=== PATIENT | female | born 1960 | race Caucasian/White ===

== ENCOUNTER 2022-01-06 15:11 | Emergency (ER) | payer MEDICAID, SELFPAY ==
--- NOTE | ~2022-01-06 | XR_ITS ---
EXAMINATION: XR chest 2V Exam Date/Time: 01/06/2022 15:30 CDT HISTORY: SOB/CONGESTION X 5 DAYS. COPD. Comparison: None available. RESULT: Lines, tubes, and devices: Bilateral axillary clips. Laminectomy hardware. Lungs and pleura: Clear. Cardiomediastinal silhouette: Unremarkable cardiomediastinal silhouette. Other: No acute osseous or upper abdominal finding. IMPRESSION: No acute cardiopulmonary process. Reviewed, dictated and finalized at location K.
[2022-01-06 15:16] VITALS: PULSE 78; RESP 22; O2SAT 95
[2022-01-06 15:21] VITALS: BP 138/85; PULSE 73; RESP 22; TEMP 36.7; O2SAT 98
[2022-01-06 15:30] VITALS: RESP 24
--- NOTE | 2022-01-06 16:07 | ED.SOB ---
HPI - SOB/Dyspnea General Chief Complaint: Shortness of Breath/Dyspnea Stated Complaint: Shortness of Breath Time Seen by Provider: 01/06/22 15:35 Source: patient, RN notes reviewed and old records reviewed Mode of arrival: ambulatory Limitations: no limitations History of Present Illness HPI Narrative: 61-year-old female who presents to express care with complaints of increased shortness of breath since . Patient states cough with some clear mucus and nasal congestion also with clear sinus drainage. Patient states that cough has increased and she has noted wheezing. Patient does have history of COPD and known right lung mass and also has had a double mastectomy. Patient states she does use inhalers at home and has used her albuterol inhaler 2 puffs twice today as her rescue with no improvement in cough. Patient has had COVID immunizations and also flu shot. MD elicited complaint: shortness of breath and cough Pertinent past history: COPD Onset (ago): day(s) (3) Timing: progressively worsening Severity: moderate Exacerbating factors: exertion Related Data Home Medications Medication Instructions Recorded Confirmed alprazolam 0.25 mg PO DAILY 01/06/22 01/06/22 aspirin 81 mg PO DAILY 01/06/22 01/06/22 exemestane 25 mg PO DAILY 01/06/22 01/06/22 gabapentin 300 mg PO BID 01/06/22 01/06/22 hydralazine 25 mg PO TID 01/06/22 01/06/22 hydrochlorothiazide 25 mg PO DAILY 01/06/22 01/06/22 lisinopril 5 mg PO DAILY 01/06/22 01/06/22 metoprolol succinate 50 mg PO DAILY 01/06/22 01/06/22 paroxetine HCl 20 mg PO DAILY 01/06/22 01/06/22 Allergies Allergy/AdvReac Type Severity Reaction Status Date / Time No Known Allergies Allergy Verified 01/06/22 15:27 Review of Systems Review of Systems: CONSTITUTIONAL: Denies fever, chills, or sweats. EYES: Denies visual changes, redness, or discharge. ENT: Positive for rhinorrhea, congestion, no sore throat, or otalgia. CARDIOVASCULAR: Denies chest pain, palpitations, or edema. RESPIRATORY:Positive for increased cough or dyspnea. GASTROINTESTINAL: Denies abdominal pain, nausea, vomiting, or diarrhea. GENITOURINARY: Denies dysuria or hematuria. SKIN: Denies rash or itching. MUSCULOSKELETAL: Denies back pain, joint pain, or myalgia. NEUROLOGIC: Denies headache, numbness, or weakness. PSYCHIATRIC: Positive for anxiety or depression. 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 There is no relevant family history pertinent to the presenting complaint Exam Narrative: GENERAL: Chronic ill-appearing, well-nourished, and in some acute distress. HEAD: Normocephalic, atraumatic. EYES: PERRLA and EOMI. ENT: Nares red with clear rhinorrhea no epistaxis. Mucous membranes moist. TMs normal with good light reflex throat with some mild redness no lesions or exudates or tonsil swelling NECK: Supple.no lymphadenopathy CHEST: Decreased with scattered wheezing on auscultation. tachypnea noted with SAO2 95% on room air, increased cough noted HEART: Regular rate and rhythm. No murmur heard. Normal peripheral pulses. ABDOMEN: Soft, nontender, nondistended, normal active bowel sounds. EXTREMITIES: Normal range of motion. No edema. SKIN: Warm, dry, no rash. NEURO: No foc
== END 2022-01-06 16:40 | disposition home or self-care (01) ==
PROVIDERS: Emergency Provider Registered Nurse
DX: J44.1 Chronic obstructive pulmonary disease with (acute) exacerbation (principal); I10 Essential (primary) hypertension; F41.9 Anxiety disorder, unspecified; F32.A Depression, unspecified; Z85.3 Personal history of malignant neoplasm of breast; Z90.13 Acquired absence of bilateral breasts and nipples; Z87.891 Personal history of nicotine dependence
CPT/HCPCS: 71046; 99213; G0463

== ENCOUNTER 2024-01-05 14:27 | Outpatient (CLI) | payer MEDICARE, MEDICAID, SELFPAY ==
[2024-01-05 14:51] LABS: Basophils Percent Auto 0.4 % (0.2-1.2); Eosinophils Absolute Auto 0.1 K/mm3 (0-0.3); Eosinophils Percent Auto 1.3 % (0-4.4); Hematocrit 44.4 % (37.0-47.0); Hemoglobin 14.1 g/dL (12.0-15.0); Immature Granulocyte Absolute 0.02 K/mm3 (0.00-0.031); Immature Granulocyte Percent A 0.2 % (0-0.5); Lymphocytes Absolute Auto 0.96 K/mm3 (0.9-3.2); Lymphocytes Percent Auto 10.2 % (18.3-44.2); Mean Corpuscular HGB Conc 31.8 g/dl (32-36); Mean Corpuscular Hemoglobin 33.1 pg (26-34); Mean Corpuscular Volume 104.2 fl (80-100); Mean Platelet Volume 8.9 fl (7.4-10.4); Monocytes Absolute Auto 0.4 K/mm3 (0.1-0.6); Monocytes Percent Auto 4.6 % (2.6-8.5); Neutrophils Absolute Auto 7.8 K/mm3 (1.3-6.7); Neutrophils Percent Auto 83.3 % (45.5-73.1); Platelet Count Result 362 k/mm3 (150-375); Red Blood Count 4.26 M/mm3 (4.2-5.4); Red Cell Distribution Width 14.4 % (11.5-14.5); White Blood Count 9.4 K/mm3 (4.5-10.0)
[2024-01-05 16:43] LABS: Alanine Aminotransferase 35 U/L (6-35); Albumin Level 4.9 g/dL (3.5-5.1); Alkaline Phosphatase 85 U/L (38-126); Anion Gap 11 mmol/L (4-12); Aspartate Amino Transferase 32 U/L (14-36); Bilirubin,Total 0.4 mg/dL (0.2-1.3); Blood Urea Nitrogen 19 mg/dL (7-17); Calcium 9.7 mg/dL (8.4-10.2); Carbon Dioxide 27 mmol/L (22-30); Chloride 101 mmol/L (98-107); Estimated Glomerular Filt Rate 41; Glucose 114 mg/dL (65-110); Potassium 4.5 mmol/L (3.4-5.0); Sodium 139 mmol/L (137-145)
[2024-01-05 16:50] LABS: Vitamin D 25 Hydroxy 24.3 ng/mL
[2024-01-06 13:53] LABS: CA 15-3 9 U/mL (<32)
== END 2024-01-05 14:28 | disposition home or self-care (01) ==
LOC: ANHLAB 14:30
PROVIDERS: Visit Provider Internal Medicine Hematology & Oncology
DX: C50.911 Malignant neoplasm of unspecified site of right female breast (principal); C50.912 Malignant neoplasm of unspecified site of left female breast; Z17.0 Estrogen receptor positive status [ER+]; E55.9 Vitamin D deficiency, unspecified
CPT/HCPCS: 36415; 80053; 82306; 85025; 86300

== ENCOUNTER 2024-12-10 14:41 | Emergency (ER) | payer MEDICARE, SELFPAY ==
--- NOTE | ~2024-12-10 | XR_ITS ---
EXAMINATION: XR chest 2V 12/10/2024 15:05 INDICATION: Cough, shortness of breath and wheezing PROCEDURE: 2 view chest COMPARISON: 01/06/2022 FINDINGS: The lungs are clear. The lungs are hyperinflated which is consistent with, but not diagnost ic of chronic obstructive pulmonary disease. The cardiomediastinal silhouette is within normal limits . There are no pleural effusions. There is no pneumothorax suspected. There are healed left rib fr actures. There is an age-indeterminate left seventh rib fracture anteriorly. IMPRESSION: 1: NO ACUTE CARDIOPULMONARY DISEASE. 2: Age-indeterminate left seventh rib fracture anteriorly. Reviewed, dictated and finalized at location A.
--- OUTSIDE RECORDS SUMMARY | 2024-12-10 14:45 | XMS_ITS ---
Care Plan - [facility] Created on: December 10, 2024 SIA VILLASEÑOR : 1960 Sex: Female Author Organization [facility] Address [address] [place] [address] Phone Care Team Providers Care Burn Nurse Name Role Phone DARYAN KURTZ MD Primary Care Provider [phone]
--- OUTSIDE RECORDS SUMMARY | 2024-12-10 14:45 | XMS_ITS | Clinical Summary ---
Author Organization [facility] Address [address] [place] [address] Phone Care Team Providers Care Engineering Supplies Sales Name Role Phone ADRYAN KURTZ MD Primary Care Provider [phone] Reason for Visit and Chief Complaint The Chief Complaint is: Patient presents for check up. Patient states that she has been having black out spells . She thinks this is due to her blood pressure. 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 NATALIYA GUO [employer]F-C Active Last Documented On 3 2:08PM ; [facility] Skin Subcutaneous Tissue Disorders in Diseases Classified Elsewhere 05/12/2023 NATALIYA Cristina [employer]IEF-C Active Last Documented On 3 2:08PM ; [facility] Essential Hypertension Malignant 03/25/2021 NAWAF PALAFOX MD Active Last Documented On 1 12:23PM ; [facility] Chronic Obstructive Pulmonar y Disease with Exacerbation 02/04/2020 LINETTE PALAFOX MD Active Last Documented On 1 5:14PM ; [facility] Past Visits Onset Date Resolved Date Provider Condition Status Myalgia and Myositis 02/21/2022 SHAUNA GUO [employer] CHIEF-C Active Last Documented On 2 11:38AM ; [facility] Anxiety Disorder Nos 03/25/2021 LINETTE WILLIS MD Active Last Documented On 1 12:23PM ; [facility] Adjustment Disorder with Anx iety and Depressed Mood 10/25/2020 LINETTE PALAFOX MD Active Last Documented On 1 5:14PM ; [facility] Anxiety disorder, unspecified 02/04/2020 BINH VIDAL-CHRISTEL [employer] CHIEF-C Active Last Documented On 0 8:56AM ; [facility] Breast Complaints 02/04/2020 NATALIYA LOZOYA [employer] CHIEF-C Active Last Documented On 2 5:47PM ; [facility] Plan of Treatment Follow up in 6 months - Last Documented On 05/12/2023 2:09PM ; [facility] Referrals To Diagnosis Wound Care [facility] - [address], [place] [id number] - Postmastectomy lymphedema syndrome Note: lymphedema evaluate an d treat bilat arms Last Documented On 3 12:26PM ; [facility] Assessments Includes: Assessments from this encounter Findings - [I10 - Essential (primary) hypertension] Malignant essential hypertension - Last Documented On 05/12/2023 2:09PM ; [facility] - [I97.2 - Postmastectomy lymphedema syndrome] Postmastectomy lymphedema syndrome - Last Documented On 05/12/2023 2:09PM ; [facility] - [J44.1 - Chronic obstructive pulmonary disease with (acute) exacerbation] Chronic obstructive pulmonary disease with exacerbation - Last Documented On 05/12/2023 2:09PM ; [facility] - [L99 - Other disorders of skin and subcutaneous tissue in diseases classified elsewhere] Disorders of skin and subcutaneous tissue in diseases classified elsewhere - Last Documented On 05/12/2023 2:09PM ; [facility] Medical Equipment - Implanted Devices Includes: Current Devices No Medical Equipment Recorded Medications Includes: Medications discussed during this encounter and other current Medications Discontinued / Stopped on this date NATALIYA GUO [employer] P[employer] CHIEF-C on 05/01/2023 Metoprolol Succinate ER 50 M G Oral Tablet Extended Release 24 Hour Provider: NATALIYA PALACIO [employer] CHIEF-C Diagnosis: Last Documented On 3 1:35PM By Nataliya MEZA ; [facility] hydrALAZINE HCl 25 MG Oral Tablet Provider: NATALIYA MEZA Diagnosis: Essential (prima ry) hypertension Last Documented On 3 1:35PM By Nataliya MEZA ; [facility] Incruse Ellipta 62.5 MCG/INH Inhalation Aerosol Powder Breath Activated Provider: NATALIYA MEZA Diagnosis: Chronic obstruct james pulmonary disease w (acute) exacerbation Last Documented On 05/12/2023 1:25PM By Leyla RÍOS ; [facility] New / Renewed during this visit NATALIYA PINO-Phi on 05/12/2023 guaiFENesin ER 600 MG Oral Tablet Extended Release 12 Hour Provider: NATALIYA MEZA 30 day supply: 60 tablet, 11 refills Diagnosis: Chronic obstructive pulmonary disease w (acute) exacerbation One tablet twice a day Pharmacy: [address], [address] - Last Documented On 3 2:08PM By Nataliya MEZA ; [facility] Bactrim DS 800-160 MG Oral Tablet Provider: NATALIYA MEZA 7 day supply: 14 tablet, 0 refills Diagnosis: Oth disorders of skin, subcu in diseases classd elswhr One tablet twice a day Pharmacy: [facility] [address], [address] - Last Documented On 11/03/2023 1:00PM By Diogenes RÍOS ; [facility] Current Medications (continue as prescribed) Albuterol Sulfate HFA 108 (90 Base) MCG/ACT Inhalation Aerosol Solution 01/28/2024 Provider: NATALIYA MEZA Diagnosis: Anxiety disorder , unspecified 2 puff q 4 hours prn Last Documented On 01/28/2024 3:45PM By Diogenes RÍOS ; [facility] traMADol HCl 50 MG Oral Tablet 01/27/2024 Provider: NATALIIA Colunga Diagnosis: Myalgia, unspeci fied site One tablet at bed time Last Documented On 4 1:30PM By Nataliia Bhat PA-C ; [facility] Xanax 0.25 MG Oral Tablet 01/16/2024 Provider: NATALIYA MEZA Diagnosis: Anxiety disorder , unspecified One tablet three times a day Last Documented On 4 12:41PM By Nataliya MEZA ; [facility] Pregabalin 150 MG Oral Capsule 01/16/2024 Provider: NATALIYA MEZA Diagnosis: Myalgia, unspeci fied site once daily Last Documented On 4 12:41PM By Nataliya MEZA ; [facility] Trelegy Ellipta 100-62.5-25 MCG/ACT Inhalation Aerosol Powder Breath Activated 10/13/2023 Provider: NATALIYA MEZA Diagnosis: Chronic obstruct james pulmonary disease w (acute) exacerbation 1 puff daily Last Documented On 4 4:03PM By Nataliya MEZA ; [facility] hydroCHLOROthiazide 25 MG Oral Tablet 05/05/2023 Provider: NATALIYA MEZA Diagnosis: Essential (prima ry) hypertension One tablet daily Last Documented On 3 11:14AM By Nataliya MEZA ; [facility] PARoxetine HCl 20 MG Oral Tablet 05/01/2023 Provider: NATALIYA MEZA Diagnosis: Adjustment disor jose guadalupe with mixed anxiety and depressed mood One tablet daily Last Documented On 3 8:34AM By Nataliya MEZA ; [facility] Lisinopril 5 MG Oral Tablet 05/01/2023 Provider: NATALIYA MEZA Diagnosis: Essential (prima ry) hypertension One tablet daily Last Documented On 3 8:34AM By Nataliya MEZA ; [facility] Aspirin Adult Low Dose 81 MG Oral Tablet Delayed Relea se 08/21/2021 Provider: Diagnosis: Last Documented On 08/21/2021 2:45PM By Anabella Taylor Cecilio ; [facility] Past Medications on file Trelegy Ellipta 100-62.5-25 MCG/INH Inhalation Aerosol Powder Breath Activated 09/21/2020 - 12/20/2020 Provider: LINETTE PALAFOX MD Diagnosis: Chronic obstruct james pulmonary disease w (acute) exacerbation INHALE 1 PUFF BY MOUTH ONCE DAILY AT BEDTIME Last Documented On 09/21/2020 2:34PM By Miladis Small Cecilio ; [facility] Medications Administered Includes: Administered Medications from this encounter No Administered Medications Recorded Vital Signs Includes: Vital Signs from this encounter Vital Name 05/12/2023 01:48P 05/12/2023 01: 23P Blood Pressure Sitting (mmHg) 160/95 Pulse Rate-Sitting (bpm) 80 Respiration Rate (breaths/min) 20 Temp-Oral (F) 97.8 Height (in) 63 Weight (lb) 196.375 Body Mass Index 34.8 Body Surface Area 1.9 Oxygen Saturation (%) 98 Last Documented: On 05/12/2023 1:48PM ; [facility] On 05/12/2023 1:30PM ; [facility] Results Includes: Results discussed during this encounter No Results Recorded For Specified Dates History of Present Illness Includes: History of Present Illness from this encounter SUNSHINE VILLASEÑOR is a 62 year old female. Source of patient information was patient - Allergy list reviewed - Problem list reviewed - Medication list reviewed Here today for complaints of bilat arm pain and having increased in Lymphedema to the arms. She reports she would like to come off some the BP meds. Has a small spot on back infected hair folicle-will treat with Bactrim. Social History Description Last Updated Current smoker 02/21/2022 Last Documented On 1:22PM ; [facility] Tobacco non-user 08/21/2021 Last Documented On 3 1:22PM ; [facility] Good exercise habits 07/23/2020 Last Documented On 3 1:22PM ; [facility] No caffeine use 07/23/2020 Last Documented On 3 1:22PM ; [facility] No family problems 07/23/2020 Last Documented On 3 1:22PM ; [facility] No interpersonal problems 07/23/2020 Last Documented On 3 1:22PM ; [facility] No job change 07/23/2020 Last Documented On 3 1:22PM ; [facility] No physical disability 07/23/2020 Last Documented On 3 1:22PM ; [facility] No recent financial changes 07/23/2020 Last Documented On 3 1:22PM ; [facility] No recent legal problems 07/23/2020 Last Documented On 3 1:22PM ; [facility] No work-related circumstances 07/23/2020 Last Documented On 3 1:22PM ; [facility] Not using alcohol 07/23/2020 Last Documented On 3 1:22PM ; [facility] Not using drugs 07/23/2020 Last Documented On 3 1:22PM ; [facility] Smoker smokes 3 cig/day 06/22/2020 Last Documented On 3 1:22PM ; [facility] Cigarette smoking 02/04/2020 Last Documented On 3 1:22PM ; [facility] Current every day smoker 02/04/2020 Last Documented On 3 1:22PM ; [facility] Current smoker for 35 years 02/04/2020 Last Documented On 3 1:22PM ; [facility] Moderate cigarette smoker 02/04/2020 Last Documented On 3 1:22PM ; [facility] Smoking Status Unknown Medical History Includes: Medical History addressed during this encounter Description Last Updated Surgery 1979--child ~1994-- c/s Last Documented On 3 1:22PM ; [facility] Family History Includes: Family History addressed during this encounter No Family History Recorded Review of Systems Includes: Review of Systems from this encounter No Review of Systems Recorded Mental Status Includes: Mental Status from this encounter No Mental Status Recorded Functional Status Includes: Functional Status from this encounter No Functional Status Recorded Physical Exam Includes: Physical Exam from this encounter Allergies Includes: Active Allergies No Known Allergies Encounters Encounter Provider Location Date Check-In Time Check-Out Time Diagnosis CHECK UP NATALIYA MEZA [facility]- 05/12/20 23 1:20PM 2:09PM Essential Hypertension Malignant,Chroni c Obstructive Pulmonary Disease with Exacerbation,Pos tmastectomy Lymphedema Syndrome,Skin Subcutaneous Tissue Disorders in Diseases Classified Elsewhere Insurance Includes: Active Insurance Policies Plan Name Member ID Group # Subscriber Relationship Effect james Dates 1 - [employer]/ MEDICARE GOLD CHOICE PLAN-A [id number] SIA Ching 2 - MEDICAID OF [place] MEDICARE SECOND [id number] SIA Ching Clinical Notes Includes: Clinical Notes from this encounter * Progress note Date Encounter Last Documented by 05/12/2023 CHECK UP Last documented on 05/12/2023; 2:09 PM, NATALIYA MEZA; [facility] Active Problems & Conditions - F43.23 - Adjustment Disorder with Anxiety and Depressed Mood - F41.9 - Anxiety Disorder Nos - F41.9 - Anxiety disorder, unspecified - N64.59 - Breast Complaints - J44.1 - Chronic Obstructive Pulmonary Disease with Exacerbation - I10 - Essential Hypertension Malignant - M79.10 - Myalgia and Myositis - I97.2 - Postmastectomy Lymphedema Syndrome - L99 - Skin Subcutaneous Tissue Disorders in Diseases Classified Elsewhere Chief Complaint The Chief Complaint is: Patient presents for check up. Patient states that she has been having black out spells . She thinks this is due to her blood pressure. She reports her metoprolol makes her feel funny so she hasn't taken it the past few days. History of Present Illness SIA VILLASEÑOR is a 62 year old female. Source of patient information was patient - Allergy list reviewed - Problem list reviewed - Medication list reviewed Here today for complaints of bilat arm pain and having increased in Lymphedema to the arms. She reports she would like to come off some the BP meds. Has a small spot on back infected hair folicle-will treat with Bactrim. Current Medication - Aspirin Adult Low Dose 81 MG Oral Tablet Delayed Release One tablet daily 0 days, 0 refills - hydroCHLOROthiazide 25 MG Oral Tablet One tablet daily, 90 days, 3 refills - Lisinopril 5 MG Oral Tablet One tablet daily, 90 days, 3 refills - PARoxetine HCl 20 MG Oral Tablet One tablet daily, 90 days, 3 refills - Pregabalin 150 MG Oral Capsule once daily, 30 days, 0 refills - Trelegy Ellipta 100-62.5-25 MCG/ACT Inhalation Aerosol Powder Breath Activated 1 puff daily, 30 days, 6 refills - Xanax 0.25 MG Oral Tablet One tablet three times a day, 30 days, 0 refills Past Medical/Surgical History Reported: Surgery 1979--child 1994-- c/s. Social History Personal: No interpersonal problems, no family problems, and no work-related circumstances. No job change, no recent financial changes, and no recent legal problems. Caffeine use: No caffeine use. Tobacco use: Current every day smoker, for 35 years, cigarette smoking moderate, tobacco non-user, and smoker smokes 3 cig/day. Alcohol: Not using alcohol. Drug Use: Not using drugs. Habits: Good exercise habits. Functional: No physical disability. Allergies - No Known Allergies Physical Findings - Vitals taken 05/12/2023 01:23 pm Pulse Rate-Sitting 80 bpm Respiration Rate 20 per min Temp-Oral 97.8 F Height 63 in Weight 196 lbs 6 oz Body Mass Index 34.8 kg/m2 Body Surface Area 1.9 m2 Oxygen Saturation 98 % - Vitals taken 05/12/2023 01:48 pm BP-Sitting 160/95 mmHg Assessment - [I10 - Essential (primary) hypertension] Malignant essential hypertension - [I97.2 - Postmastectomy lymphedema syndrome] Postmastectomy lymphedema syndrome - [J44.1 - Chronic obstructive pulmonary disease with (acute) exacerbation] Chronic obstructive pulmonary disease with exacerbation - [L99 - Other disorders of skin and subcutaneous tissue in diseases classified elsewhere] Disorders of skin and subcutaneous tissue in diseases classified elsewhere Plan StartCited - Chronic obstructive pulmonary disease w (acute) exacerbation guaiFENesin ER 600 MG tablet One tablet twice a day, 30 days, 11 refills EndCited StartCited - Oth disorders of skin, subcu in diseases classd elswhr Bactrim DS 800-160 MG tablet One tablet twice a day, 7 days, 0 refills EndCited StartCited - Postmastectomy lymphedema syndrome Therapy/Physical Therapy: Other Instructions: Evaluate and Treat lymphedema treatment bilat arms Referral: Wound Care Instructions: lymphedema evaluate and treat bilat arms EndCited Follow up in 6 months Health Reminders - Assess Blood Pressure satisfied 05/12/2023. - Assess Need for CT Lung Screen satisfied 05/12/2023. - Assess Tobacco Use satisfied 05/12/2023.
--- OUTSIDE RECORDS SUMMARY | 2024-12-10 14:45 | XMS_ITS | Encounter Summary ---
Author Organization [facility] Healthcare Address [address] [place] [address] Care Team Providers Care Conical Mixer Name Role Phone Phyllis Garland MD Primary Care Provider + [phone] Raghav Ackerman MD Unavailable [phone] Celia Dale MD Unavailable [phone] Keo Garcia MD Unavailable [phone] Aurelia Hernandez MD PhD Unavaila ble Franki Mckeon MD Unavailable [phone] Roberta Daley MD Unavailable [phone] Padma Pineda MD Primary Care Provider Padma Pineda MD Primary Care Provider Armen Dupree MD Unavailable Roz Nicholas Unavailable Unavailable Nataliia Bhat Primary Care Provider Encounter Details Date Type Department Care Team (Late st Contact Info) Description 02/14/2021 Orders Only [facility] Radiation Oncology [address] [place] [phone] Celia Dale MD [address] [place] [address], [place] [address] Social History Tobacco Use Types Packs/Day Years Used Date Smoking Tobacco: Every Day Cigarettes 0.3 42 Smokeless Tobacco: Never Alcohol Use Standard Drinks/Week Comments Not Currently 0 (1 standard drink = 0.6 oz pur e alcohol) AUDIT-C Answer Date Recorded Q1: How often do you have a drink containing alc ohol? Never 12/19/2020 Average Number of Drinks Not on file 021 Frequency of Binge Drinking Not on file 11/2020 PHQ-2 Answer Date Recorded PHQ-2 Total Score (If total score is 3 or more points, staff should administer the PHQ-9) 0 12/19/2020 Comments No Sex and Gender Information Value Date Recorded Sex Assigned at Not on file Legal Sex Female 9:00 AM PRICING COORDINATOR Gender Identity Not on file Sexual Orientation Not on file documented as of this encounter Ordered Prescriptions Prescription Sig Dispense Quantity Refills Last Filled Start Date End Date guaiFENesin-codein e (GUAITUSS AC) liquid 100-10 mg/5 mLIndications:Coug h,5-10 ml prn cough up to tid. Take 5 mL by mouth 3 (three) times a day as needed for cough 120 mL 02/14/2021 06/08/2021 documented in this encounter Plan of Treatment Not on file documented as of this encounter Visit Diagnoses Not on filedocumented in this encounter Discontinued Medications Medication Sig Discontinue Reason Start Date End Da te guaiFENesin-codeine (GUAITUSS AC) liquid 100-10 mg/5 mLIndications:Cough,5-10 ml prn cough up to tid. Take 5 mL by mouth 3 (three) times a day as needed for cough Reorder 01/25/2021 02/14/2021 documented as of this encounter Care Teams Conical Mixer Relationship Specialty Start Date End Date Phyllis Garland MD [address] [place] [id number] PCP - General Family Medicine 03/03/20 10/15/21 Padma Pineda MD [address] [place] [address] PCP - General 10/17/21 05/08/24 Padma Pineda MD [address] [place] [address] PCP - General 10/16/21 10/16/21 Nataliia Bhat PA [address] [place] [address] PCP - General Physician Armature Connector 05/09/24 Raghav Ackerman MD [address] [place] [address] Medical Oncologist/Certified Nursing Assistant Instructor Medical Oncology 03/23/20 10/22/21 Celia Dale MD [address] [facility] [place] [address] Radiation Oncologist Radiation Oncology 09/05/20 Keo Garcia MD [address] [facility] [place] [address] Surgeon Trauma Surgery 10/24/20 Aurelia Hernandez MD PhD [address] [facility] [place] [address] Surgeon Surgical Oncology 12/26/20 Franki Mckeon MD [address] [facility] [place] [address] Resident Neurosurgery 05/23/21 Roberta Daley MD [address] [facility] [place], [place] [id number] Consulting Physician Gastroenterology 07/04/21 Armen Dupree MD [address] [facility], [facility] [place] [address] [place], [place] [id number] Consulting Physician Medical Oncology 10/23/21 Roz Nicholas COTA Occupational Therapist Occupational Therapy 04/10/23 documented as of this encounter
--- OUTSIDE RECORDS SUMMARY | 2024-12-10 14:45 | XMS_ITS | Clinical Summary ---
Author Organization [facility] Address [address] [place] [address] Phone Care Team Providers Care Career Professional Name Role Phone Nataliia Bhat Primary Care Provider [phone] Reynaldo Yu MD Unavailable Allergies No known active allergies Medications omeprazole (PRILOSEC) 40 MG CAPSULE DELAYED RELEASEIndicatio ns:Acute gastritis without hemorrhage, unspecified gastritis type Take 1 Cap by mouth daily. 30 Cap 3 9 Active Additional Information Patient not taking.Reported on 12/07/2024 traMADol (ULTRAM) 50 MG TabletIndication s:Sciatica of left side Take 1 Tab by mouth every 8 hours as needed for Moderate or more severe pain. 30 Tab 9 Active Additional Information Patient not taking.Reported on 12/07/2024 ALPRAZolam (XANAX) 0.25 MG Tablet Take 0.25 mg by mouth nightly. Active aspirin EC 81 MG Tablet Delayed Response Take 81 mg by mouth daily. Active exemestane (AROMASIN) 25 MG Tablet Take 25 mg by mouth daily Active hydroCHLOROthiaz adonay 25 MG Tablet Take 25 mg by mouth daily. Active lisinopril (PRINIVIL, ZESTRIL) 5 MG Tablet Take 5 mg by mouth daily. Active PARoxetine (PAXIL) 20 MG Tablet Take 20 mg by mouth daily. Active pregabalin (LYRICA) 150 MG Capsule Take 150 mg by mouth 2 times daily. Active albuterol 108 (90 Base) MCG/ACT Aerosol Solution take 2 Puffs by inhalation. 8 Active Trelegy Ellipta 100-62.5-25 MCG/ACT AEROSOL POWDER, BREATH ACTIVATED take 1 Puff by inhalation daily. 4 Active carbidopa-levodo pa (SINEMET) 25-100 MG Tablet Take 1 Tablet by mouth 3 times daily. 1/2 hour before eating 90 Tablet 1 5 Active Encounters Date Type Department Care Team Description 12/07/2024 2:45 PM CDT Office Visit [facility] - Neurology [facility] [address] [place] [address] Reynaldo Yu MD Parkinson's disease without dyskinesia or fluctuating manifestations (HCC) (Primary Dx); Chronic midline low back pain with bilateral sciatica; Primary insomnia Discharge Disposition: Discharged to home or Selfcare 12/07/2024 Travel from Last 3 Months Family History Medical History Relation Name Comments Chronic Obstructive Pulmonary Disease Father Cancer Mother Diabetes Mother Relation Name Status Comments Father Mother Alive Social History Tobacco Use Types Packs/Day Years Used Date Smoking Tobacco: Every Day Smokeless Tobacco: Never Tobacco Cessation:Ready to Q uit: No; Counseling Given: Yes Alcohol Use Standard Drinks/Week Comments No 0 (1 standard drink = 0.6 oz pur e alcohol) PHQ-2 Answer Date Recorded PHQ-2 Score 1 05/01/2019 Sexually Active Control Partners Comments Never Comments No Sex and Gender Information Value Date Recorded Sex Assigned at Not on file Legal Sex Female 11:47 PM CDT Gender Identity Not on file Sexual Orientation Not on file Last Filed Vital Signs Vital Sign Reading Time Taken Comments Blood Pressure 122/68 12/07/2024 2:35 PM CDT Pulse 98 12/07/2024 2:35 PM CDT Temperature 36.8 C (98.2 F) 12/07/2024 2:35 PM CDT Respiratory Rate 16 12/07/2024 2:35 PM CDT Oxygen Saturation 99% 12/07/2024 2:35 PM CDT Inhaled Oxygen Concentration - - Weight 98.5 kg (217 lb 1.6 oz) 12/07/2024 2:35 P M CDT Height 160 cm (5' 3 ) 12/07/2024 2:35 PM CDT Body Mass Index 38.46 12/07/2024 2:35 PM CDT Plan of Treatment Upcoming Encounters Date Type Department Care Team (Late st Contact Info) Description 03/10/2025 2:45 PM CDT Office Visit [facility] - Neurology [facility] [address] [place] [address] Reynaldo Yu MD [address] [place] [address] Health Maintenance Due Date Last Done Comments Hepatitis C Virus (HCV) Screening 1960 TdaP Immunization 1960 Zoster Immunization (1 of 2) 1977 Colonoscopy 11/11/2003 Colorectal Cancer Screening 11/11/2003 Cologuard 2008 Immunochemical Fecal Occult Blood 2008 Respiratory Syncytial Virus (RSV) Immunization (Adult) (1 - Risk 60-74 years 1-dose series) 2018 SARS-COV-2 Immunization (4 - season) 2024 10/29/2021, 04/18/2021, 03/25/2021 Influenza Immunization (Seas on Ended) 2025 DEXA Bone Density 06/30/2025 06/30/2023, 04/03/2020 Pneumococcal Immunization (5 0+ years) (3 of 3 - PCV20 or PCV21) 05/23/2026 05/23/2021, 05/22/2020 Mammogram Discontinued 03/23/2020, 02/23/2020, 02/16/2020 Pneumococcal Immunization Combined Discontinued 05/23/2021, 05/22/2020 Hepatitis B Immunization Aged Out No longer eligible based on patient's age to complete this topic Meningococcal Immunization (ACWY) Aged Out No longer eligible based on patient's age to complete this topic Rotavirus Immunization Aged Out No lo nger eligible based on patient's age to complete this topic Procedures Procedure Name Priority Date/Time Associated Diagnosis Comments SCHUYLER DIAG BILATERAL DIGITAL WO CAD Routine 02/23/2020 3:15 PM CDT Status post bilateral breast biopsy from Last 3 Months or Most Recently Relevant to Health Maintenance Results * SCHUYLER DIAG BILATERAL DIGITAL WO CAD (02/23/2020 3:15 PM CDT) Anatomical Region Laterality Modality breast Bilateral Mammography 02/23/2020 3:26 PM CDT Addenda Addendum by Sharan Pearl MD on 02/28/2020 1:50 PM CDT ADDENDUM: This addendum report supersedes the original report dated 02/23/2020 Pathology results returned a diagnoses as follows: 1. 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 2. Right breast mass 7 o'clock position 7 cm from the nipple: Invasive ductal carcinoma. 3. Right breast mass/lesion 9 o'clock position 5 cm from the nipple: Stromal fibrosis negative for malignancy. Breast surgical consultation is recommended. Please see pathology report for full details. THIS IS AN ELECTRONICALLY VERIFIED FINAL REPORT 02/28/2020 1:47 PM - Electronically signed by Sharan Pearl M.D. CHARLINE: CHARLINE Report ID: [id number] Reading Location: [place] [address] EXAM DESCRIPTION: [facility] US GUIDANCE AND CORE BREAST BIOPSY CATHY; [facility] DIAG BILATERAL DIGITAL WO CAD; [facility] US GUIDANCE AND CORE BREAST BIOPSY EACH ADDL RIGHT REASON FOR STUDY: Bilateral breast masses highly suggestive of malignancy. Bilateral ultrasound guided breast biopsies are recommended. COMPARISON: Mammogram and ultrasound 02/16/2020 TECHNIQUE: The procedure was discussed with the patient and the patient agreed to proceed. The patient was scanned and the area of interest in the 2 o'clock position 10 cm from the nipple of the left breast was localized. This correlates with the area of concern on prior imaging studies. This area was targeted for ultrasound-guided core biopsy. After sterile skin prep and 5 mL local lidocaine 1% for skin and deep tissue anesthesia, a 14 gauge coaxial core biopsy needle was used to obtain several cores of tissue from the lesion. Needle placement was documented with sonographic images. Under ultrasound guidance, a ribbon shaped clip was placed in the areas sampled. There were no immediate post-procedure complications. The patient was scanned and the area of interest in the 7 o'clock position 7 cm from the nipple of the right breast was localized. This correlates with the area of concern on prior imaging studies. This area was targeted for ultrasound-guided core biopsy. After sterile skin prep and 7 mL local lidocaine 1% for skin and deep tissue anesthesia, a 14 gauge coaxial core biopsy needle was used to obtain several cores of tissue from the lesion. Needle placement was documented with sonographic images. Under ultrasound guidance, a ribbon shaped clip was placed in the areas sampled. There were no immediate post-procedure complications. The patient was scanned and the area of interest in the 9 o'clock position 5 cm from the nipple of the right breast was localized. This correlates with an area of concern on prior imaging studies. This area was targeted for ultrasound-guided core biopsy. After sterile skin prep and 3 mL local lidocaine 1% for skin and deep tissue anesthesia, a 14 gauge core biopsy needle was used to obtain several cores of tissue from the lesion. Needle placement was documented with sonographic images. Under ultrasound guidance, a coil shaped clip was placed in the areas sampled. There were no immediate post-procedure complications. MAMMOGRAM: Post-procedure two view mammogram was acquired in the digital mammogram suite. Left breast: The ribbon shaped clip is in the expected location of the left breast mass at the 2 o'clock position 10 cm from the nipple. Associated calcifications with the mass are again noted no significant hematoma. Right breast: The ribbon shaped clip is in the expected location at the right breast mass 7 o'clock position 7 cm from the nipple. The coil shaped clip is in the expected position of the biopsy at the 9 o'clock position 5 cm from the nipple. This does not correlate with a previously circled/questioned abnormality on the mammogram 02/16/2020, the prior questioned abnormality on 02/16/2020 most likely relates to overlapping fibroglandular breast tissue. FINDINGS: Ultrasound guided breast biopsy of the right breast x2 and of the left breast x1 as described above. Post biopsy mammogram IMPRESSION: 1. Successful ultrasound-guided left breast biopsy of the mass at the 2 o'clock position 10 cm from the nipple. 2. Successful ultrasound-guided right breast biopsy of the mass at the 7 o'clock position 7 cm from the nipple. 3. Successful ultrasound-guided right breast biopsy of the 2 x 3 x 3 mm hypoechoic lesion at the 9 o'clock position 5 cm from the nipple. 4. Post biopsy mammogram demonstrating successful clip placement as detailed. Pathology results are pending. An addendum will be generated when pathology results are available. THIS IS AN ELECTRONICALLY VERIFIED FINAL REPORT 02/23/2020 3:26 PM - Electronically signed by Sharan Pearl M.D. CHARLINE: CHARLINE Report ID: [id number] Reading Location: [id number] Impressions 02/24/2020 7:23 AM CDT IMPRESSION: 1. Successful ultrasound-guided left breast biopsy of the mass at the 2 o'clock position 10 cm from the nipple. 2. Successful ultrasound-guided right breast biopsy of the mass at the 7 o'clock position 7 cm from the nipple. 3. Successful ultrasound-guided right breast biopsy of the 2 x 3 x 3 mm hypoechoic lesion at the 9 o'clock position 5 cm from the nipple. 4. Post biopsy mammogram demonstrating successful clip placement as detailed. Pathology results are pending. An addendum will be generated when pathology results are available. Narrative 02/24/2020 7:23 AM CDT EXAM DESCRIPTION: [facility] US GUIDANCE AND CORE BREAST BIOPSY CATHY; [facility] DIAG BILATERAL DIGITAL WO CAD; [facility] US GUIDANCE AND CORE BREAST BIOPSY EACH ADDL RIGHT REASON FOR STUDY: Bilateral breast masses highly suggestive of malignancy. Bilateral ultrasound guided breast biopsies are recommended. COMPARISON: Mammogram and ultrasound 02/16/2020 TECHNIQUE: The procedure was discussed with the patient and the patient agreed to proceed. The patient was scanned and the area of interest in the 2 o'clock position 10 cm from the nipple of the left breast was localized. This correlates with the area of concern on prior imaging studies. This area was targeted for ultrasound-guided core biopsy. After sterile skin prep and 5 mL local lidocaine 1% for skin and deep tissue anesthesia, a 14 gauge coaxial core biopsy needle was used to obtain several cores of tissue from the lesion. Needle placement was documented with sonographic images. Under ultrasound guidance, a ribbon shaped clip was placed in the areas sampled. There were no immediate post-procedure complications. The patient was scanned and the area of interest in the 7 o'clock position 7 cm from the nipple of the right breast was localized. This correlates with the area of concern on prior imaging studies. This area was targeted for ultrasound-guided core biopsy. After sterile skin prep and 7 mL local lidocaine 1% for skin and deep tissue anesthesia, a 14 gauge coaxial core biopsy needle was used to obtain several cores of tissue from the lesion. Needle placement was documented with sonographic images. Under ultrasound guidance, a ribbon shaped clip was placed in the areas sampled. There were no immediate post-procedure complications. The patient was scanned and the area of interest in the 9 o'clock position 5 cm from the nipple of the right breast was localized. This correlates with an area of concern on prior imaging studies. This area was targeted for ultrasound-guided core biopsy. After sterile skin prep and 3 mL local lidocaine 1% for skin and deep tissue anesthesia, a 14 gauge core biopsy needle was used to obtain several cores of tissue from the lesion. Needle placement was documented with sonographic images. Under ultrasound guidance, a coil shaped clip was placed in the areas sampled. There were no immediate post-procedure complications. MAMMOGRAM: Post-procedure two view mammogram was acquired in the digital mammogram suite. Left breast: The ribbon shaped clip is in the expected location of the left breast mass at the 2 o'clock position 10 cm from the nipple. Associated calcifications with the mass are again noted no significant hematoma. Right breast: The ribbon shaped clip is in the expected location at the right breast mass 7 o'clock position 7 cm from the nipple. The coil shaped clip is in the expected position of the biopsy at the 9 o'clock position 5 cm from the nipple. This does not correlate with a previously circled/questioned abnormality on the mammogram 02/16/2020, the prior questioned abnormality on 02/16/2020 most likely relates to overlapping fibroglandular breast tissue. FINDINGS: Ultrasound guided breast biopsy of the right breast x2 and of the left breast x1 as described above. Post biopsy mammogram THIS IS AN ELECTRONICALLY VERIFIED FINAL REPORT 02/23/2020 3:26 PM - Electronically signed by Sharan Pearl M.D. CHARLINE: CHARLINE Report ID: [id number] Reading Location: [id number] Procedure Note Sharan Pearl MD - 02/24/2020 EXAM DESCRIPTION: [facility] US GUIDANCE AND CORE BREAST BIOPSY CATHY; [facility] DIAG BILATERAL DIGITAL WO CAD; [facility] US GUIDANCE AND CORE BREAST BIOPSY EACH ADDL RIGHT REASON FOR STUDY: Bilateral breast masses highly suggestive of malignancy. Bilateral ultrasound guided breast biopsies are recommended. COMPARISON: Mammogram and ultrasound 02/16/2020 TECHNIQUE: The procedure was discussed with the patient and the patient agreed to proceed. The patient was scanned and the area of interest in the 2 o'clock position 10 cm from the nipple of the left breast was localized. This correlates with the area of concern on prior imaging studies. This area was targeted for ultrasound-guided core biopsy. After sterile skin prep and 5 mL local lidocaine 1% for skin and deep tissue anesthesia, a 14 gauge coaxial core biopsy needle was used to obtain several cores of tissue from the lesion. Needle placement was documented with sonographic images. Under ultrasound guidance, a ribbon shaped clip was placed in the areas sampled. There were no immediate post-procedure complications. The patient was scanned and the area of interest in the 7 o'clock position 7 cm from the nipple of the right breast was localized. This correlates with the area of concern on prior imaging studies. This area was targeted for ultrasound-guided core biopsy. After sterile skin prep and 7 mL local lidocaine 1% for skin and deep tissue anesthesia, a 14 gauge coaxial core biopsy needle was used to obtain several cores of tissue from the lesion. Needle placement was documented with sonographic images. Under ultrasound guidance, a ribbon shaped clip was placed in the areas sampled. There were no immediate post-procedure complications. The patient was scanned and the area of interest in the 9 o'clock position 5 cm from the nipple of the right breast was localized. This correlates with an area of concern on prior imaging studies. This area was targeted for ultrasound-guided core biopsy. After sterile skin prep and 3 mL local lidocaine 1% for skin and deep tissue anesthesia, a 14 gauge core biopsy needle was used to obtain several cores of tissue from the lesion. Needle placement was documented with sonographic images. Under ultrasound guidance, a coil shaped clip was placed in the areas sampled. There were no immediate post-procedure complications. MAMMOGRAM: Post-procedure two view mammogram was acquired in the digital mammogram suite. Left breast: The ribbon shaped clip is in the expected location of the left breast mass at the 2 o'clock position 10 cm from the nipple. Associated calcifications with the mass are again noted no significant hematoma. Right breast: The ribbon shaped clip is in the expected location at the right breast mass 7 o'clock position 7 cm from the nipple. The coil shaped clip is in the expected position of the biopsy at the 9 o'clock position 5 cm from the nipple. This does not correlate with a previously circled/questioned abnormality on the mammogram 02/16/2020, the prior questioned abnormality on 02/16/2020 most likely relates to overlapping fibroglandular breast tissue. FINDINGS: Ultrasound guided breast biopsy of the right breast x2 and of the left breast x1 as described above. Post biopsy mammogram THIS IS AN ELECTRONICALLY VERIFIED FINAL REPORT 02/23/2020 3:26 PM - Electronically signed by Sharan Pearl M.D. CHARLINE: CHARLINE Report ID: [id number] Reading Location: [id number] IMPRESSION: 1. Successful ultrasound-guided left breast biopsy of the mass at the 2 o'clock position 10 cm from the nipple. 2. Successful ultrasound-guided right breast biopsy of the mass at the 7 o'clock position 7 cm from the nipple. 3. Successful ultrasound-guided right breast biopsy of the 2 x 3 x 3 mm hypoechoic lesion at the 9 o'clock position 5 cm from the nipple. 4. Post biopsy mammogram demonstrating successful clip placement as detailed. Pathology results are pending. An addendum will be generated when pathology results are available. us Not On File Provider IMG MAMMO ORDERABLES Edited Result - Final from Last 3 Months or Most Recently Relevant to Health Maintenance Insurance MEDICARE [place] BREAST CERVICAL CANC[facility] [place] BRE[facility]ERVICAL CANC[facility] Care Teams Career Professional Relationship Specialty Start Date End Date Nataliia Bhat PAC [address] [place] [id number] PCP - General Physician Garbage Collector 08/16/24 Reynaldo Yu MD [address] [place] [id number] Consulting Physician Neurology 12/06/24
--- OUTSIDE RECORDS SUMMARY | 2024-12-10 14:45 | XMS_ITS | Continuity of Care Document ---
Author Organization [facility] Medical [facility] Address [address] [place] [address] Care Team Providers Care Prop Setter Name Role Phone Nataliia Bhat Primary Care Physician Melany Emmanuel Unavailable Unavailable Encounter [facility] Date(s): 12/09/24 - 12/09/[address] [address]- (0 ) - Discharge Disposition: Home or Self Care Encounter Type: Between Visit Allergies, Adverse Reactions, Alerts No Known Allergies Assessment and Plan Future Appointments Appointment Date:01/25/2025 01:00:00 PM Scheduled Provider:Nataliia Bhat PA-C Location:[facility] Appointment Type:Check Up (JERS) Future Scheduled Tests Laboratory* Hemoglobin A1c 08/06/24 * CBC w/ Diff 08/06/24 * Comprehensive Metabolic Panel 08/06/24 * Lipid Panel 08/06/24 * TSH 08/06/24 * Vitamin B12 Level 08/06/24 * Free T4 08/06/24 * Iron Panel 08/06/24 Immunizations Given and Recorded Vaccine Date Status Refusal Reason SARS-CoV-2 mRNA ([id number]) 10/29/21 Re corded pneumococcal 23-polyvalent vaccine 05/23/21 Record ed SARS-CoV-2 mRNA (tozinameran) vaccine 04/18/21 Rec orded SARS-CoV-2 mRNA (tozinameran) vaccine 03/25/21 Rec orded pneumococcal 13-valent conjugate vaccine 05/22/20 Recorded Medications ALPRAZolam 0.25 mg oral tablet = 1 tab, Oral, every day at bedtime, # 30 tab, 2 Refill(s), Pharmacy: [facility] Start Date: 09/06/24 Status: Ordered Quantity: 30.0 Unit: Repeat number: 3 aspirin 81 mg oral delayed release tablet = 1 tab, Oral, Daily, # 90 tab, 0 Refill(s) Start Date: 08/05/24 Status: Ordered Quantity: 90.0 Unit: Repeat number: 1 carbidopa-levodopa 25 mg-100 mg oral tablet 1 tab, Oral, TID, 1/2 hour before eating, # 270 tab, 0 Refill(s) Start Date: 12/09/24 Status: Ordered Quantity: 270.0 Unit: Repeat number: 1 exemestane 25 mg oral tablet TAKE 1 TABLET BY MOUTH ONCE DAILY Start Date: 05/06/24 Status: Ordered Repeat number: 1 hydroCHLOROthiazide 25 mg oral tablet = 1 tab, Oral, Daily, # 90 tab, 3 Refill(s), Pharmacy: [place] [address] Start Date: 07/11/24 Status: Ordered Quantity: 90.0 Unit: Repeat number: 1 lisinopril 5 mg oral tablet = 1 tab, Oral, Daily, # 30 tab, 5 Refill(s), Pharmacy: [place] [address] Start Date: 07/06/24 Status: Ordered Quantity: 30.0 Unit: Repeat number: 1 PARoxetine 20 mg oral tablet = 1 tab, Oral, Daily, # 90 tab, 3 Refill(s), Pharmacy: [place] [address] Start Date: 07/11/24 Status: Ordered Quantity: 90.0 Unit: Repeat number: 1 pregabalin 150 mg oral capsule = 1 cap, Oral, BID, # 60 cap, 2 Refill(s), Pharmacy: [place] [address] Start Date: 09/06/24 Status: Ordered Quantity: 60.0 Unit: Repeat number: 3 Trelegy Ellipta 100 mcg-62.5 mcg-25 mcg/inh inhalation powder 1 puffs, Inhale, Daily, # 60 EA, 5 Refill(s), Pharmacy: [place] [address] Start Date: 06/24/24 Status: Ordered Quantity: 60.0 Unit: Repeat number: 6 Problem List Condition Confirmation Course Effective Dates Status H ealth Status Informant Adjustment disorder with mixed anxiety and depressed mood Confirmed 10/25/20 Active Anxiety disorder Confirmed 03/25/21 Active Cervical radiculopathy Confirmed Active CKD stage 3b, GFR 30-44 ml/min Confirmed Active Chronic obstructive pulmonary disease Confirmed Active Disorder of muscle Confirmed 02/21/22 Active Disorder of skin and/or subcutaneous tissue Confirmed 05/12/23 Active Tremor of left hand Confirmed Active Malignant essential hypertension Confirmed 03/25/21 Active Malignant neoplasm of unspecified site of unspecified female breast Confirmed Active Major depressive disorder, recurrent episode, moderate Confirmed Active Myalgia of auxiliary muscles, head and neck Confirmed Active 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 Procedures Procedure Date Related Diagnosis Body Site Status Bilateral mastectomy Comp leted Social History Social History Type Response Smoking Status 5-9 cigarettes (betw een 1/4 to 1/2 pack)/day in last 30 days entered on: 08/05/24 Sex Female Sex Representation Female (finding) Patient Care team information Care Team Personnel Name: Melany Emmanuel LPN Position: Ambulatory - Cabin Crew Member Role: Cabin Crew Name: Nataliia Bhat PA-C Position: JANNET Auth Member Role: Primary Care Physician Address: [address] [place] [address] Telecom: Insurance Providers Guarantor name: GERRY Health Plan Information #: 1 Payer: [employer] Member Number: GERRY Policy Number: GERRY Group Number: [id number] Payer Identifier: GERRY
--- OUTSIDE RECORDS SUMMARY | 2024-12-10 14:45 | XMS_ITS | Clinical Summary ---
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 NATALIYA GUO CLEAN UP SUPERVISOR-C Active Last Documented On 3 2:08PM ; [facility] Skin Subcutaneous Tissue Disorders in Diseases Classified Elsewhere 05/12/2023 NATALIYA TRAN Z CLEAN UP SUPERVISOR-C Active Last Documented On 3 2:08PM ; [facility] Myalgia and Myositis 02/21/2022 NATALIYA JAVIER-CHRISTEL CLEAN UP SUPERVISOR-C Active Last Documented On 2 11:38AM ; [facility] Anxiety Disorder Nos 03/25/2021 LINETTE WILLIS MD Active Last Documented On 1 12:23PM ; [facility] Essential Hypertension Malignant 03/25/2021 NAWAF PALAFOX MD Active Last Documented On 1 12:23PM ; [facility] Adjustment Disorder with Anx iety and Depressed Mood 10/25/2020 LINETTE PALAFOX MD Active Last Documented On 1 5:14PM ; [facility] Anxiety disorder, unspecified 02/04/2020 BINH GUO CLEAN UP SUPERVISOR-C Active Last Documented On 0 8:56AM ; [facility] Chronic Obstructive Pulmonar y Disease with Exacerbation 02/04/2020 LINETTE PALAFOX MD Active Last Documented On 1 5:14PM ; [facility] Breast Complaints 02/04/2020 NATALIYA PINO-Phi Active Last Documented On 2 5:47PM ; [facility] Plan of Treatment No Plan of Treatment Recorded Assessments Includes: Assessments from this encounter No Assessments Recorded Medical Equipment - Implanted Devices Includes: Current Devices No Medical Equipment Recorded Medications Includes: Medications discussed during this encounter and other current Medications New / Renewed during this visit NATALIYA PINO-Phi on 03/25/2023 Pregabalin 150 MG Oral Capsule Provider: NATALIYA MEZA 30 day supply: 30 capsule, 0 refills Diagnosis: Myalgia, unspecified site once daily Pharmacy: [address], [address] - Last Documented On 3 9:00AM By Nataliya MEZA ; [facility] Current Medications (continue as prescribed) Albuterol Sulfate HFA 108 (90 Base) MCG/ACT Inhalation Aerosol Solution 01/28/2024 Provider: NATALIYA MEZA Diagnosis: Anxiety disorder , unspecified 2 puff q 4 hours prn Last Documented On 01/28/2024 3:45PM By Diogenes RÍOS ; [facility] traMADol HCl 50 MG Oral Tablet 01/27/2024 Provider: NATALIIA Colunga Diagnosis: Myalgia, unspeci fied site One tablet at bed time Last Documented On 4 1:30PM By Nataliia Bhat PA-C ; [facility] Xanax 0.25 MG Oral Tablet 01/16/2024 Provider: NATALIYA MEZA Diagnosis: Anxiety disorder , unspecified One tablet three times a day Last Documented On 4 12:41PM By Nataliya MEZA ; [facility] Pregabalin 150 MG Oral Capsule 01/16/2024 Provider: NATALIYA MEZA Diagnosis: Myalgia, unspeci fied site once daily Last Documented On 4 12:41PM By Nataliya MEZA ; [facility] Trelegy Ellipta 100-62.5-25 MCG/ACT Inhalation Aerosol Powder Breath Activated 10/13/2023 Provider: NATALIYA MEZA Diagnosis: Chronic obstruct james pulmonary disease w (acute) exacerbation 1 puff daily Last Documented On 4 4:03PM By Nataliya MEZA ; [facility] guaiFENesin ER 600 MG Oral Tablet Extended Release 12 Hour 05/12/2023 Provider: NATALIYA MEZA Diagnosis: Chronic obstruct james pulmonary disease w (acute) exacerbation One tablet twice a day Last Documented On 3 2:08PM By Nataliya MEZA ; [facility] hydroCHLOROthiazide 25 MG Oral Tablet 05/05/2023 Provider: NATALIYA MEZA Diagnosis: Essential (prima ry) hypertension One tablet daily Last Documented On 3 11:14AM By Nataliya MEZA ; [facility] PARoxetine HCl 20 MG Oral Tablet 05/01/2023 Provider: NATALIYA MEZA Diagnosis: Adjustment disor jose [place] with mixed anxiety and depressed mood One tablet daily Last Documented On 3 8:34AM By Nataliya MEZA ; [facility] Lisinopril 5 MG Oral Tablet 05/01/2023 Provider: NATALIYA MEZA Diagnosis: Essential (prima ry) hypertension One tablet daily Last Documented On 3 8:34AM By Nataliya MEZA ; [facility] Aspirin Adult Low Dose 81 MG Oral Tablet Delayed Relea se 08/21/2021 Provider: Diagnosis: Last Documented On 08/21/2021 2:45PM By Anabella RÍOS ; [facility] Past Medications on file Trelegy Ellipta 100-62.5-25 MCG/INH Inhalation Aerosol Powder Breath Activated 09/21/2020 - 12/20/2020 Provider: LINETTE PALAFOX MD Diagnosis: Chronic obstruct james pulmonary disease w (acute) exacerbation INHALE 1 PUFF BY MOUTH ONCE DAILY AT BEDTIME Last Documented On 09/21/2020 2:34PM By Miladis RÍOS ; [facility] Medications Administered Includes: Administered Medications from this encounter No Administered Medications Recorded Results Includes: Results discussed during this encounter No Results Recorded For Specified Dates History of Present Illness Includes: History of Present Illness from this encounter No History of Present Illness Recorded Social History Description Last Updated Current smoker 02/21/2022 Last Documented On 3 11:48AM ; [facility] Tobacco non-user 08/21/2021 Last Documented On 3 11:48AM ; [facility] Good exercise habits 07/23/2020 Last Documented On 3 11:48AM ; [facility] No caffeine use 07/23/2020 Last Documented On 3 11:48AM ; [facility] No family problems 07/23/2020 Last Documented On 3 11:48AM ; [facility] No interpersonal problems 07/23/2020 Last Documented On 3 11:48AM ; [facility] No job change 07/23/2020 Last Documented On 3 11:48AM ; [facility] No physical disability 07/23/2020 Last Documented On 3 11:48AM ; [facility] No recent financial changes 07/23/2020 Last Documented On 3 11:48AM ; [facility] No recent legal problems 07/23/2020 Last Documented On 3 11:48AM ; [facility] No work-related circumstances 07/23/2020 Last Documented On 3 11:48AM ; [facility] Not using alcohol 07/23/2020 Last Documented On 3 11:48AM ; [facility] Not using drugs 07/23/2020 Last Documented On 3 11:48AM ; [facility] Smoker smokes 3 cig/day 06/22/2020 Last Documented On 3 11:48AM ; [facility] Cigarette smoking 02/04/2020 Last Documented On 3 11:48AM ; [facility] Current every day smoker 02/04/2020 Last Documented On 3 11:48AM ; [facility] Current smoker for 35 years 02/04/2020 Last Documented On 3 11:48AM ; [facility] Moderate cigarette smoker 02/04/2020 Last Documented On 3 11:48AM ; [facility] Smoking Status Unknown Medical History Includes: Medical History addressed during this encounter Description Last Updated Surgery 1979--child ~1994-- c/s Last Documented On 3 11:48AM ; [facility] Family History Includes: Family History addressed during this encounter No Family History Recorded Review of Systems Includes: Review of Systems from this encounter No Review of Systems Recorded Mental Status Includes: Mental Status from this encounter No Mental Status Recorded Functional Status Includes: Functional Status from this encounter No Functional Status Recorded Physical Exam Includes: Physical Exam from this encounter No Physical Exam Recorded Allergies Includes: Active Allergies No Known Allergies Encounters Encounter Provider Location Date Check-In Time Check-Out Time Diagnosis RX ISSUE/REFILL NATALIYA PINO-C 3 11:47AM 11:59PM Insurance Includes: Active Insurance Policies Plan Name Member ID Group # Subscriber Relationship Effect james Dates 1 - [employer]/ MEDICARE GOLD CHOICE PLAN-A [id number] SIA VILLASEÑOR Self 2 - MEDICAID [place] MEDICARE SECOND [id number] SIA VILLASEÑOR Self Clinical Notes Includes: Clinical Notes from this encounter * Progress note Date Encounter Last Documented by 03/25/2023 RX ISSUE/REFILL Last documented on 03/25/2023; 1:39 PM, NATALIYA GUO CLEAN UP SUPERVISOR-C; [facility] Active Problems & Conditions - F43.23 - Adjustment Disorder with Anxiety and Depressed Mood - F41.9 - Anxiety Disorder Nos - F41.9 - Anxiety disorder, unspecified - N64.59 - Breast Complaints - J44.1 - Chronic Obstructive Pulmonary Disease with Exacerbation - I10 - Essential Hypertension Malignant - M79.10 - Myalgia and Myositis Chief Complaint Phone Call - Chief Concern: Reason for call: Pt called and they dont have Pregabalin 75 so asking if she can get the 100mg twice daily pt phone # for return call: Date/Initials: CLF. Current Medication - Albuterol Sulfate HFA 108 (90 Base) MCG/ACT Inhalation Aerosol Solution 2 puff q 4 hours prn, 30 days, 2 refills - Aspirin Adult Low Dose 81 MG Oral Tablet Delayed Release One tablet daily 0 days, 0 refills - hydrALAZINE HCl 25 MG Oral Tablet One tablet three times a day, 90 days, 1 refills - hydroCHLOROthiazide 25 MG Oral Tablet One tablet daily, 90 days, 1 refills - Incruse Ellipta 62.5 MCG/INH Inhalation Aerosol Powder Breath Activated as directed 2 puffs inhaled bid, 30 days, 3 refills - Lisinopril 5 MG Oral Tablet One tablet daily, 90 days, 1 refills - Metoprolol Succinate ER 50 MG Oral Tablet Extended Release 24 Hour One tablet daily, 30 days, 3 refills - PARoxetine HCl 20 MG Oral Tablet One tablet daily, 90 days, 1 refills - Pregabalin 75 MG Oral Capsule One tablet twice a day, 30 days, 3 refills - Trelegy Ellipta 100-62.5-25 MCG/ACT Inhalation [...] physical disability. Allergies - No Known Allergies Plan StartCited - Myalgia, unspecified site Pregabalin 150 MG capsule once daily, 30 days, 0 refills EndCited StartCited - Other PHY ORDER/COMMENT I sent in 150mg once daily no dose increase needed EndCited Health Reminders - Assess Need for CT Lung Screen satisfied 03/25/2023. - Assess Tobacco Use satisfied 03/25/2023.
--- OUTSIDE RECORDS SUMMARY | 2024-12-10 14:45 | XMS_ITS | Encounter Summary ---
Author Organization [facility] Address [address] [place] [address] Care Team Providers Care Commercial Lines Manager Name Role Phone Phyllis Garland MD Primary Care Provider + [phone] Stephenie Turcios MD Unavailable [phone] Raghav Ackerman MD Unavailable [phone] Kalani Andino MD Unavailable [phone] Celia Dale MD Unavailable [phone] Keo Garcia MD Unavailable [phone] Aurelia Hernandez MD PhD Unavaila ble Aurelia Hernandez MD PhD Unavaila ble Franki Mckeon MD Unavailable [phone] Roberta Daley MD Unavailable [phone] Padma Pineda MD Primary Care Provider Padma Pineda MD Primary Care Provider Armen Dupree MD Unavailable Roz Nicholas Unavailable Unavailable Nataliia Bhat Primary Care Provider Encounter Details Date Type Department Care Team (Late st Contact Info) Description 03/22/2020 Telephone [facility] [address] [place] [address] Stephenie Turcios MD [address] [place] [address] Social History Tobacco Use Types Packs/Day Years Used Date Smoking Tobacco: Every Day Cigarettes 0.5 42 Smokeless Tobacco: Never Alcohol Use Standard Drinks/Week Comments Yes 0 (1 standard drink = 0.6 oz pur e alcohol) socially Comments Unknown Sex and Gender Information Value Date Recorded Sex Assigned at Not on file Legal Sex Female 9:00 AM [employer] Gender Identity Not on file Sexual Orientation Not on file documented as of this encounter Plan of Treatment Not on file documented as of this encounter Visit Diagnoses Not on filedocumented in this encounter Care Teams Commercial Lines Manager Relationship Specialty Start Date End Date Phyllis Garland MD [address] [place] [address] PCP - General Family Medicine 03/03/20 10/15/21 Padma Pineda MD [address] [place] [address] PCP - General 10/17/21 05/08/24 Padma Pineda MD [address] [place] [address] PCP - General 10/16/21 10/16/21 Nataliia Bhat PA [address] [place] [address] PCP - General Physician Naprapath 05/09/24 Stephenie Turcios MD [address] [place] [address] Surgeon Surgical Oncology 03/23/20 12/25/20 Raghav Ackerman MD [address] [place] [address] Medical Oncologist/Nuclear Physician Medical Oncology 03/23/20 10/22/21 Kalani Andino MD [address] [place] [address] Radiation Oncologist Radiation Oncology 03/27/20 1 Celia [place] MD [address] [facility] [address] Radiation Oncologist Radiation Oncology 09/05/20 Keo Garcia MD [address] [facility] [place] [address] Surgeon Trauma Surgery 10/24/20 Aurelia Hernandez MD PhD [address] [facility] [place] [address] Surgeon Surgical Oncology 12/26/20 Aurelia Hernandez MD PhD [address] [facility] [place] [address] Surgeon Surgical Oncology 12/26/20 12/27/20 Franki Mckeon MD [address] [facility] [place] [address] Resident Neurosurgery 05/23/21 Roberta Daley MD [address] [facility] [place] [address] Consulting Physician Gastroenterology 07/04/21 Armen Dupree MD [address] [facility] [address] [place] [address] Consulting Physician Medical Oncology 10/23/21 Roz Nicholas COTA Occupational Therapist Occupational Therapy 04/10/23 documented as of this encounter
--- OUTSIDE RECORDS SUMMARY | 2024-12-10 14:45 | XMS_ITS | Clinical Summary ---
Author Organization [facility] [address] [facility] Address [address] [place] [address] Care Team Providers Care Volunteer Firefighter Name Role Phone Celia Dale MD Unavailable [phone] Keo Garcia MD Unavailable [phone] Aurelia Hernandez MD PhD Unavaila ble Franki Mckeon MD Unavailable Roberta Daley MD Unavailable Armen Dupree MD Unavailable Roz Nicholas LANDRY Unavailable Unavailable Nataliia Bhat Primary Care Provider Allergies No known active allergies Medications albuterol HFA (PROVENTIL HFA,VENTOLIN HFA,PROAIR HFA) 90 mcg/actuation inhaler Inhale 2 puffs as needed for shortness of breath 8 Active cholecalciferol (VITAMIN D-3) 4,000 unit capsule Take 1 capsule (4,000 Units total) by mouth daily 30 capsule 2 0 Active Additional Information Patient taking differently:4,000 Units oralEvery morning, Indications: Prevention of Vitamin D Deficiency, Informant: Self, Reported on 11/28/2022 PARoxetine (PAXIL) 20 mg tabletIndicatio ns:Generalized Anxiety Disorder Take 1 tablet (20 mg total) by mouth every morning 1 Active lisinopriL (PRINIVIL,ZESTR IL) 5 mg tabletIndicatio ns:hypertension Take 1 tablet (5 mg total) by mouth every morning 1 Active aspirin 81 mg enteric coated tablet Take 1 tablet (81 mg total) by mouth daily Active ALPRAZolam (XANAX) 0.25 mg tablet Take 1 tablet (0.25 mg total) by mouth 3 (three) times a day as needed 2 Active hydroCHLOROthia zide (HYDRODIURIL) 25 mg tablet Take 1 tablet (25 mg total) by mouth daily 2 Active pregabalin (LYRICA) 75 mg capsule Take 1 capsule (75 mg total) by mouth 2 (two) times a day Active Incruse Ellipta 62.5 mcg/actuation blister with device Inhale 2 puffs (125 mcg total) 2 (two) times a day 2 Active Active Problems Problem Noted Date Diagnosed Date Pain of upper extremity 08/11/2024 Encounter for follow-up exam ination after completed treatment for malignant neoplasm 03/13/2023 Personal history of irradiation 03/13/2023 long-term current use of aromatase inhibitor Cervical spinal stenosis 05/24/2021 History of bilateral breast cancer 01/23/2021 Acquired absence of both breasts 01/23/2021 Elevated troponin 12/20/2020 History of breast cancer 12/20/2020 Tobacco dependence 12/20/2020 Acute pulmonary embolism without acute cor pulmo nale 12/19/2020 Post-mastectomy pain syndrome 09/07/2020 Chemotherapy-induced neutropenia 07/25/2020 Diarrhea 07/06/2020 Left carpal tunnel syndrome 06/28/2020 Seroma of breast 06/19/2020 Persons encountering health services in other specified circumstances 05/22/2020 Surgical follow-up care 05/19/2020 Encounter for monitoring anastrozole therapy Pulmonary nodule, right 04/14/2020 Malignant neoplasm of lower- outer quadrant of right breast of female, estrogen receptor positive 03/12/2020 Cancer Staging:Clinical stage from 03/13/2020:Stage IIA(cT2, cN0, cM0, G2, ER+, NM-, HER2-) - Signed by Kalani Andino MD on 04/07/2020 Malignant neoplasm of upper- outer quadrant of left breast in female, estrogen receptor positive 03/12/2020 Cancer Staging:Clinical stage from 03/15/2020:Stage IA(cT1c, cN0, cM0, G2, ER+, NM+, HER2-) - Signed by Kalani Andino MD on 04/07/2020 Encounter to discuss treatment options 0 Anxiety state 02/04/2020 Obstructive chronic bronchitis with exacerbation 02/04/2020 Other sign and symptom in breast 02/04/2020 Osteochondritis dissecans 11/15/2010 Chondromalacia of patella 11/15/2010 Bilateral hand numbness Immunizations Immunization Administration Dates Next Due Pfizer SARS-CoV-2 Monovalent Vaccination (12+ Yrs) PURPLE 04/18/2021,03/25/2021 Pneumococcal Conjugate PCV 13 05/22/2020 Pneumococcal Polysaccharide PPV23 05/23/2021 Surgical History Surgery Date Site/Laterality Comments BREAST BIOPSY 02/28/2020 Bilateral SECTION 08/18/1994 - 08/17/1995 MASTECTOMY 05/10/2020 Bilateral CONTRAST INJECTION EVALUATION CENTRAL VENOUS ACCESS DEVICE 11/06/2020 N/A PORT REMOVAL 06/08/2021 N/A LAMINOTOMY 05/18/2021 - 06/17/2021 HAND SURGERY 04/18/2022 - 05/17/2022 Right CARPAL TUNNEL RELEASE 07/30/2022 Left carpal tunnel release BREAST BIOPSY 02/23/2020 Right Medical History Medical History Date Comments Anxiety Back pain Breast cancer (HCC) antelmo breasts COPD (chronic obstructive pulmonary disease) (HC C) chest CT 06/07/20- approx GERD (gastroesophageal reflux disease) Obesity HTN (hypertension) Cervical stenosis of spine Walker as ambulation aid Carpal tunnel syndrome Family History Medical History Relation Name Comments Uterine cancer Mother Anesthesia problems Neg Hx Relation Name Status Comments Mother Alive Social History Tobacco Use Types Packs/Day Years Used Date Smoking Tobacco: Every Day Cigarettes 0.1 50 Smokeless Tobacco: Never Tobacco Cessation:Ready to Q uit: Not Asked; Counseling Given: Not Answered Alcohol Use Standard Drinks/Week Comments Not Currently 0 (1 standard drink = 0.6 oz pur e alcohol) AUDIT-C Answer Date Recorded Frequency of Alcohol Consumption Not on file 07/30/2022 Q2: How many drinks containi ng alcohol do you have on a typical day when you are drinking? Patient does not drink Frequency of Binge Drinking Not on file 07/18 PHQ-2 Answer Date Recorded PHQ-2 Total Score (If total score is 3 or more points, staff should administer the PHQ-9) 0 12/19/2020 Personal Safety Answer Date Recorded Have you ever been in or are you currently in a harmful physical or emotional relationship or is someone making you feel afraid or unsafe? Denies 05/09/2024 Comments No Sex and Gender Information Value Date Recorded Sex Assigned at Not on file Legal Sex Female 9:00 AM SUPERVISOR SPINNING Gender Identity Not on file Sexual Orientation Not on file Obstetrics History Last Filed Vital Signs Vital Sign Reading Time Taken Comments Blood Pressure 113/76 05/09/2024 1:30 PM CDT Pulse 111 05/09/2024 1:30 PM CDT Temperature 36.3 C (97.4 F) 05/09/2024 1:29 PM CDT Respiratory Rate 17 05/09/2024 1:30 PM CDT Oxygen Saturation 94% 05/09/2024 1:30 PM CDT Inhaled Oxygen Concentration - - Weight 91.6 kg (202 lb) 05/09/2024 1:30 PM CDT Height 152.4 cm (5') 05/09/2024 1:30 PM CDT Body Mass Index 39.45 05/09/2024 1:30 PM CDT Plan of Treatment Health Maintenance Due Date Last Done Comments Colon Cancer Screening-Colonoscopy 1958 DTaP/Tdap/Td Vaccine (1 - Tdap) 1969 Hepatitis B Screening 1976 Zoster Vaccine (1 of 2) 1977 Breast Cancer Screening-Mammogram 02/15/2021 020 Depression Screening 12/19/2021 12/19/2020 Well Visit 65+ 11/11/2023 Fall Risk Assessment 03/13/2024 03/13/2023, 07/30/2022, 03/14/2022, Additional history exists Covid-19 Vaccine (4 - 2023-2 5 season) 2024 10/29/2021, 04/18/2021, 03/25/2021 Influenza Vaccine (Season Ended) 2025 Osteoporosis Screening-Bone Density Scan 06/30/2025 06/30/2023, 04/03/2020 Pneumococcal vaccine 65+ (3 of 3 - PPSV23, PCV20 or PCV21) 05/23/2026 05/23/2021, 05/22/2020 Hepatitis C Screening Completed 08/14/2020 Medical Devices Implanted Type Area Bilingual Call Center Representative Device Identifier Shelf Expiration Date Model / Serial / Lot Medtronic Sofamor Danek [id number] Centerpiece 10mm Lateral Hole Open Door Color Coded Spine - [id number] Implanted:Qty: 3 on 06/15/2021 by Washington Vinson MD at [facility] Plate N/A: Spine Cervical Medtronic Inc [id number] / / Medtronic Sofamor Danek [id number] Centerpiece 2.6mm 5mm Self Tap Stab Grab Color Coded Spine Screw - [id number] Implanted:Qty: 6 on 06/15/2021 by Washington Vinson MD at [facility] Screw N/A: Spine Cervical Medtronic Inc [id number] / / Medtronic Sofamor Danek [id number] Centerpiece 2.6mm 7mm Self Tap Stab Grab Color Coded Spine Screw - [id number] Implanted:Qty: 6 on 06/15/2021 by Washington Vinson MD at [facility] Screw N/A: Spine Cervical Medtronic Inc [id number] / / [employer] [id number] Powerport Clearvue Isp 8 Float Point Unit Siom Intermediate - [id number] Implanted:Qty: 1 on 05/31/2020 by Stephenie Turcios MD at [facility] Explanted:06/08 (Quantity not on file) Left: Subclavian [employer] Access Systems 06/17/2021 [id number] / / [id number] Explanted Type Area Bilingual Call Center Representative Device Identifier Shelf Expiration Date Model / Serial / Lot Medtronic Sofamor Danek [id number] Centerpiece 2.6mm 7mm Self Tap Stab Grab Color Coded Spine Screw - [id number] Explanted:Qty: 2 on 06/15/[address] [facility] Screw N/A: Spine Cervical Medtronic Inc [id number] / / Procedures Procedure Name Priority Date/Time Associated Diagnosis Comments DEXA AXIAL SKELETON BONE DENSITY 1 OR MORE SITES Schedule Routine, Read Routine (OP Routine) 06/30/2023 12:53 PM SUPERVISOR SPINNING Malignant neoplasm of upper-outer quadrant of left breast in female, estrogen receptor positive (HCC) Malignant neoplasm of lower-outer quadrant of right breast of female, estrogen receptor positive (HCC) buttermaker helper (current) use of aromatase inhibitors HEPATITIS PANEL, ACUTE Routine 08/14/2020 12:47 PM SUPERVISOR SPINNING Elevated LFTs from Last 3 Months or Most Recently Relevant to Health Maintenance Results * Dexa Axial Skeleton Bone Density 1 or 2 Site (06/30/2023 12:53 PM SUPERVISOR SPINNING) Anatomical Region Laterality Modality Body N/A Other 06/30/2023 11:3 3 PM SUPERVISOR SPINNING Narrative 06/30/2023 11:34 PM SUPERVISOR SPINNING EXAM DESCRIPTION: DEXA AXIAL SKELETON BONE DENSITY 1 OR MORE SITES REASON FOR STUDY: 62 y/o year old F with given history of: Patient with breast cancer and on AI screening postmenopausal Bilingual Call Center Representative/Model: Growlife SL (S/N [id number]) CLINICAL INFORMATION: Current height: 59.7 inches Maximum height: 62 inches Weight: 196 pounds Risk factors: Postmenopausal, smoking history, cancer COMPARISON: 04/03/2020 Dissimilar scan types or analysis methods precludes assessment for calculating a significant change. FINDINGS: AP LUMBAR SPINE L1-L4: Total BMD is 0.872 g/cm2 T-score is -1.6 LEFT HIP: Total BMD is 0.825 g/cm2 T-score is -1.0 Femoral neck BMD is 0.740 g/cm2 T-score is -1.0 FRAX: 10 year risk for a major osteoporotic fracture is 7.0 %, 10 year risk for a hip fracture is 0.8 % IMPRESSION: Low Bone Mass. REFERENCE: Bone mineral density: Normal (T-score above or = -1.0) Low bone mass (T-score between -1.0 and -2.5) replaces the previously used term osteopenia Osteoporosis (T-score = or below -2.5) Medical evaluation for secondary causes of low bone mineral density may be appropriate. FRAX is a World Health Organization validated fracture risk assessment tool that calculates a person's 10 year probability of a major osteoporosis related fracture and hip fracture. According to the National Osteoporosis Foundation guidelines, postmenopausal women and men age 50 or older with low bone mass and a 10 year probability of a major osteoporosis related fracture = or greater than 20% or a 10 year probability of a hip fracture = or greater than 3% should be considered for treatment. For further information, including treatment recommendations, please refer to the 2019 ISCD Official Positions (http://www.iscd.org) and the NOF's Clinician's Guide to Prevention and Treatment of Osteoporosis (http://www.nof.org/professionals/clinical-guidelines) THIS IS AN ELECTRONICALLY VERIFIED FINAL REPORT 06/30/2023 11:34 PM - Electronically signed by Norris Perez M.D. MF: [id number] Report ID: [id number] Reading Location: [place] [address] Procedure Note Norris Perez MD - 06/30/2023 EXAM DESCRIPTION: DEXA AXIAL SKELETON BONE DENSITY 1 OR MORE SITES REASON FOR STUDY: 62 y/o year old F with given history of: Patientwith breast cancer and on AI screening postmenopausal Bilingual Call Center Representative/Model: [employer]Cred (S/N [id number]) CLINICAL INFORMATION: Current height: 59.7 inches Maximum height: 62 inches Weight: 196 pounds Risk factors: Postmenopausal, smoking history, cancer COMPARISON: 04/03/2020 Dissimilar scan types or analysis methods precludes assessment for calculating a significant change. FINDINGS: AP LUMBAR SPINE L1-L4: Total BMD is 0.872 g/cm2 T-score is -1.6 LEFT HIP: Total BMD is 0.825 g/cm2 T-score is -1.0 Femoral neck BMD is 0.740 g/cm2 T-score is -1.0 FRAX: 10 year risk for a major osteoporotic fracture is 7.0 %, 10 year risk fora hip fracture is 0.8 % IMPRESSION: Low Bone Mass. REFERENCE: Bone mineral density: Normal (T-score above or = -1.0) Low bone mass (T-score between -1.0 and -2.5) replaces thepreviously used term osteopenia Osteoporosis (T-score = or below -2.5) Medical evaluation for secondary causes of low bone mineral density may be appropriate. FRAX is a World Health Organization validated fracture risk assessmenttool that calculates a person's 10 year probability of a major osteoporosisrelated fracture and hip fracture. According to the National OsteoporosisFoundation guidelines, postmenopausal women and men age 50 or older with low bonemass and a 10 year probability of a major osteoporosis related fracture = or greater than 20% or a 10 year probability of a hip fracture = or greaterthan 3% should be considered for treatment. For further information, including treatment recommendations, please referto the 2019 ISCD Official Positions (http://www.iscd.org) and the NOF's Clinician's Guide to Prevention and Treatment of Osteoporosis (http://www.nof.org/professionals/clinical-guidelines) THIS IS AN ELECTRONICALLY VERIFIED FINAL REPORT 06/30/2023 11:34 PM - Electronically signed by Norris Perez M.D. MF: [id number] Report ID: [id number] Reading Location: [place] [address] Armen Dupree MD IM DXA PROCEDURE S Final Result * Hepatitis panel, acute (08/14/2020 12:47 PM SUPERVISOR SPINNING) Hep A IgM Nonreactive Nonreactive [facility] Comment: Interpretive Data: If Hep A IgM Ab is reported as Equivocal, a new sample should be drawn in two weeks for testing. Current interpretive data was last revised on 19. Hep B core IgM Nonreactive Nonreactive [facility] Comment: Interpretive Data If HepB Core IgM Ab is reported as Equivocal, a new sample should be drawn in two weeks for testing. Current interpretive data was last revised on 19. Hep C Ab Nonreactive Nonreactive [facility] Comment: Interpretive Data Nonreactive: Antibodies to HCV not detected. Does NOT exclude the possibility of recent exposure to HCV. Equivocal: Equivocal for HCV antibodies. Supplemental molecular testing will be automatically performed to determine infection status in accordance with current CDC screening recommendations. Reactive: Positive for HCV antibodies. This may represent current or past HCV infection. Supplemental molecular testing will be automatically performed to determine current infection status in accordance with current CDC screening recommendations. Interpretive data was last revised on 2019. HepBsAg Nonreactive Nonreactive [facility] Blood specimen (specimen) 08/14/2020 12:47 PM SUPERVISOR SPINNING 08/14/2020 1:54 PM SUPERVISOR SPINNING us Raghav Ackerman MD LAB MICROBIOLOGY - GENERAL ORDERABLES Final Result [facility] [id number] [address] Department [place] [address] from Last 3 Months or Most Recently Relevant to Health Maintenance Insurance [facility] MEDICARE HMO IDMD [facility] MEDICARE [facility] MEDICARE O Advance Directives For more information, please contact: [phone] * Full Code (Latest Code Status on File) Date Activated Date Inactivated Comments 06/15/2021 8:16 PM 06/18/2021 6:44 PM * Full Code Date Activated Date Inactivated Comments 12/19/2020 7:57 PM 12/21/2020 1:09 PM * Full Code Date Activated Date Inactivated Comments 05/31/2020 10:14 AM 05/31/2020 3:40 PM * Full Code Date Activated Date Inactivated Comments 05/10/2020 2:26 PM 05/10/2020 8:42 PM Healthcare Agents on File Name Relationship Healthcare Agent Jethrohi p Communication Casey Manjarrez Health Care Agent Care Teams Volunteer Firefighter Relationship Specialty Start Date End Date Nataliia Bhat PA [address] [place] [address] PCP - General Physician Manager Park 05/09/24 Celia Dale MD [address] [facility] [place] [address] Radiation Oncologist Radiation Oncology 09/05/20 Keo Garcia MD [address] [facility] [place] [address] Surgeon Trauma Surgery 10/24/20 Aurelia Hernandez MD PhD [address] [facility] [place] [address] Surgeon Surgical Oncology 12/26/20 Franki Mckeon MD [address] [facility] [place] [address] Resident Neurosurgery 05/23/21 Roberta Daley MD [address] [place] [address] Consulting Physician Gastroenterology 07/04/21 Armen Dupree MD [address] [facility], [address] [address] Consulting Physician Medical Oncology 10/23/21 Roz Nicholas COTA Occupational Therapist Occupational Therapy 04/10/23
--- OUTSIDE RECORDS SUMMARY | 2024-12-10 14:45 | XMS_ITS | Continuity of Care Document ---
Author Organization [facility] Address [address] [place] [address] Care Team Providers Care Construction Engineer Name Role Phone Nataliia Bhat Primary Care Physician Mleany Emmanuel Unavailable Unavailable Encounter [facility] [id number] Date(s): 12/08/24 - 12/08/[address] [address]- (0 ) - Discharge Disposition: Home or Self Care Encounter Type: Between Visit Allergies, Adverse Reactions, Alerts No Known Allergies Assessment and Plan Future Appointments Appointment Date:01/25/2025 01:00:00 PM Scheduled Provider:Nataliia Bhat PA-C Location:[facility] Appointment Type:Check Up (JERS) Future Scheduled Tests Laboratory* Hemoglobin A1c 08/06/24 * CBC w/ Diff 08/06/24 * Comprehensive Metabolic Panel 08/06/24 * Lipid Panel 08/06/24 * TSH 08/06/24 * Vitamin B12 Level 08/06/24 * Free T4 08/06/24 * Iron Panel 08/06/24 Immunizations Given and Recorded Vaccine Date Status Refusal Reason SARS-CoV-2 mRNA ([id number]) 10/29/21 Re corded pneumococcal 23-polyvalent vaccine 05/23/21 Record ed SARS-CoV-2 mRNA (tozinameran) vaccine 04/18/21 Rec orded SARS-CoV-2 mRNA (tozinameran) vaccine 03/25/21 Rec orded pneumococcal 13-valent conjugate vaccine 05/22/20 Recorded Medications ALPRAZolam 0.25 mg oral tablet = 1 tab, Oral, every day at bedtime, # 30 tab, 2 Refill(s), Pharmacy: [facility] Start Date: 09/06/24 Status: Ordered Quantity: 30.0 Unit: Repeat number: 3 aspirin 81 mg oral delayed release tablet = 1 tab, Oral, Daily, # 90 tab, 0 Refill(s) Start Date: 08/05/24 Status: Ordered Quantity: 90.0 Unit: Repeat number: 1 exemestane 25 mg oral tablet TAKE 1 TABLET BY MOUTH ONCE DAILY Start Date: 05/06/24 Status: Ordered Repeat number: 1 hydroCHLOROthiazide 25 mg oral tablet = 1 tab, Oral, Daily, # 90 tab, 3 Refill(s), Pharmacy: [place] [address] Start Date: 07/11/24 Status: Ordered Quantity: 90.0 Unit: Repeat number: 1 lisinopril 5 mg oral tablet = 1 tab, Oral, Daily, # 30 tab, 5 Refill(s), Pharmacy: [place] [address] Start Date: 07/06/24 Status: Ordered Quantity: 30.0 Unit: Repeat number: 1 PARoxetine 20 mg oral tablet = 1 tab, Oral, Daily, # 90 tab, 3 Refill(s), Pharmacy: [place] [address] Start Date: 07/11/24 Status: Ordered Quantity: 90.0 Unit: Repeat number: 1 pregabalin 150 mg oral capsule = 1 cap, Oral, BID, # 60 cap, 2 Refill(s), Pharmacy: [place] [address] Start Date: 09/06/24 Status: Ordered Quantity: 60.0 Unit: Repeat number: 3 Trelegy Ellipta 100 mcg-62.5 mcg-25 mcg/inh inhalation powder 1 puffs, Inhale, Daily, # 60 EA, 5 Refill(s), Pharmacy: [place] [address] Start Date: 06/24/24 Status: Ordered Quantity: 60.0 [...] Name: Melany Emmanuel LPN Position: Ambulatory - Edge Dyer Member Role: Edge Dyer Name: Nataliia Bhat PA-C Position: JANNET Auth Member Role: Primary Care Physician Address: [address] [place] [address] Telecom: Insurance Providers Guarantor name: GERRY Health Plan Information #: 1 Payer: [employer] Member Number: GERRY Policy Number: GERRY Group Number: GERRY Payer Identifier: GERRY
--- OUTSIDE RECORDS SUMMARY | 2024-12-10 14:46 | XMS_ITS | Encounter Summary ---
Author Organization [facility] Address [address] [place] [address] Care Team Providers Care Narrow Fabric Calenderer Name Role Phone Phyllis Garland MD Primary Care Provider + [phone] Raghav Ackerman MD Unavailable [phone] Celia Dale MD Unavailable [phone] Keo Garcia MD Unavailable [phone] Aurelia Hernandez MD PhD Unavaila ble Franki Mckeon MD Unavailable [phone] Roberta Daley MD Unavailable [phone] Padma Pineda MD Primary Care Provider Padma Pineda MD Primary Care Provider Armen Dupree MD Unavailable Roz Nicholas Unavailable Unavailable Nataliia Bhat Primary Care Provider Encounter Details Date Type Department Care Team (Late st Contact Info) Description 04/24/2021 Telephone [facility] [address] [place] [address] Transcribed Order, Provider Social History Tobacco Use Types Packs/Day Years [...] on file Legal Sex Female 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 Gender Identity Not on file Sexual Orientation Not on file documented as of this encounter Plan of Treatment Not on file documented as of this encounter Visit Diagnoses Not on filedocumented in this encounter Care Teams Narrow Fabric Calenderer Relationship Specialty Start Date End Date Phyllis Garland MD [address] [place] [address] PCP - General Family Medicine 03/03/20 10/15/21 Padma Pineda MD [address] [place] [address] PCP - General 10/17/21 05/08/24 Padma Pineda MD [address] [place] [address] PCP - General 10/16/21 10/16/21 Nataliia Bhat PA [address] [place] [address] PCP - General Physician Garnishment Specialist 05/09/24 Raghav Ackerman MD [address] [place] [address] Medical Oncologist/Curriculum And Assessment Director Medical Oncology 03/23/20 10/22/21 Celia Dale MD [address] [facility] [place] [address] Radiation Oncologist Radiation Oncology 09/05/20 Keo Garcia MD [address] [facility] [place] [address] Surgeon Trauma Surgery 10/24/20 Aurelia Hernandez MD PhD [address] [place] [address] Surgeon Surgical Oncology 12/26/20 Franki Mckeon MD [address] [facility] [place] [address] Resident Neurosurgery 05/23/21 Roberta Daley MD [address] [facility] [place] [address] Consulting Physician Gastroenterology 07/04/21 Armen Dupree MD [address] [facility], [address] [address] Consulting Physician Medical Oncology 10/23/21 Roz Nicholas COTA Occupational Therapist Occupational Therapy 04/10/23 documented as of this encounter
--- OUTSIDE RECORDS SUMMARY | 2024-12-10 14:46 | XMS_ITS | Continuity of Care Document ---
Author Organization [facility] Address [address] [place] [id number] Care Team Providers Care Teacher Ballet Name Role Phone Nataliia Bhat Primary Care Physician [phone] Melany Emmanuel Unavailable Unavailable Encounter [facility] [id number] Date(s): 12/09/24 - 12/09/[address] [address]- (0 ) - Discharge Disposition: Home or Self Care Encounter Type: Between Visit Allergies, Adverse Reactions, Alerts No Known Allergies Assessment and Plan Future Appointments Appointment Date:01/25/2025 01:00:00 PM Scheduled Provider:Nataliia Bhat PA-C Location:[facility] Appointment Type:Check Up (JERS) Future Scheduled Tests Laboratory* Hemoglobin A1c 08/06/24 * CBC w/ Diff 08/06/24 * Comprehensive Metabolic Panel 08/06/24 * Lipid Panel 08/06/24 * TSH 08/06/24 * Vitamin B12 Level 08/06/24 * Free T4 08/06/24 * Iron Panel 08/06/24 Immunizations Given and Recorded Vaccine Date Status Refusal Reason SARS-CoV-2 mRNA ([id number]) 10/29/21 Re corded pneumococcal 23-polyvalent vaccine 05/23/21 Record ed SARS-CoV-2 mRNA (tozinameran) vaccine 04/18/21 Rec orded SARS-CoV-2 mRNA (tozinameran) vaccine 03/25/21 Rec orded pneumococcal 13-valent conjugate vaccine 05/22/20 Recorded Medications ALPRAZolam 0.25 mg oral tablet = 1 tab, Oral, every day at bedtime, # 30 tab, 2 Refill(s), Pharmacy: [facility] Start Date: 09/06/24 Status: Ordered Quantity: 30.0 [...] Daily, # 90 tab, 3 Refill(s), Pharmacy: [place] [facility] [id number] Start Date: 07/11/24 Status: Ordered Quantity: 90.0 Unit: Repeat number: 1 lisinopril 5 mg oral tablet = 1 tab, Oral, Daily, # 30 tab, 5 Refill(s), Pharmacy: [place] [facility] [id number] Start Date: 07/06/24 Status: Ordered Quantity: 30.0 Unit: Repeat number: 1 PARoxetine 20 mg oral tablet = 1 tab, Oral, Daily, # 90 tab, 3 Refill(s), Pharmacy: [place] [facility] [id number] Start Date: 07/11/24 Status: Ordered Quantity: 90.0 Unit: Repeat number: 1 pregabalin 150 mg oral capsule = 1 cap, Oral, BID, # 60 cap, 2 Refill(s), Pharmacy: [place] [facility] [id number] Start Date: 09/06/24 Status: Ordered Quantity: 60.0 Unit: Repeat number: 3 Trelegy Ellipta 100 mcg-62.5 mcg-25 mcg/inh inhalation powder 1 puffs, Inhale, Daily, # 60 EA, 5 Refill(s), Pharmacy: [place] [facility] [id number] Start Date: 06/24/24 Status: Ordered Quantity: 60.0 [...] Name: Melany Emmanuel LPN Position: Ambulatory - Director Of Operations Member Role: Director Of Operations Name: Nataliia Bhat PA-C Position: JANNET Auth Member Role: Primary Care Physician Address: [address] [place] [address] Telecom: Insurance Providers Guarantor name: GERRY Health Plan Information #: 1 Payer: [employer] Member Number: GERRY Policy Number: GERRY Group Number: [id number] Payer Identifier: GERRY
--- OUTSIDE RECORDS SUMMARY | 2024-12-10 14:46 | XMS_ITS | Clinical Summary ---
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 NATALIYA GUO REPORTING DEVELOPER-C Active Last Documented On 3 2:08PM ; [facility] Skin Subcutaneous Tissue Disorders in Diseases Classified Elsewhere 05/12/2023 NATALIYA TRAN Z REPORTING DEVELOPER-C Active Last Documented On 3 2:08PM ; [facility] Myalgia and Myositis 02/21/2022 NATALIYA JAVIER-CHRISTEL REPORTING DEVELOPER-C Active Last Documented On 2 11:38AM ; [facility] Anxiety Disorder Nos 03/25/2021 LINETTE WILLIS MD Active Last Documented On 1 12:23PM ; [facility] Essential Hypertension Malignant 03/25/2021 NAAWF PALAFOX MD Active Last Documented On 1 12:23PM ; [facility] Adjustment Disorder with Anx iety and Depressed Mood 10/25/2020 LINETTE PALAFOX MD Active Last Documented On 1 5:14PM ; [facility] Anxiety disorder, unspecified 02/04/2020 BINH GUO REPORTING DEVELOPER-C Active Last Documented On 0 8:56AM ; [facility] Chronic Obstructive Pulmonar y Disease with Exacerbation 02/04/2020 LINETTE PALAFOX MD Active Last Documented On 1 5:14PM ; [facility] Breast Complaints 02/04/2020 NATALIYA PINO-C Active Last Documented On 2 5:47PM ; [facility] Plan of Treatment No Plan of Treatment Recorded Assessments Includes: Assessments from this encounter No Assessments Recorded Medical Equipment - Implanted Devices Includes: Current Devices No Medical Equipment Recorded Medications Includes: Medications discussed during this encounter and other current Medications New / Renewed during this visit NATALIYA PINO-C on 01/28/2024 Albuterol Sulfate HFA 108 (90 Base) MCG/ACT Inhalation Aerosol Solution Provider: NATALIYA PINO-Phi 30 day supply: 8.5 gram, 6 refills Diagnosis: Anxiety disorder, unspecified 2 puff q 4 hours prn Pharmacy: [facility] [address], [address] - Last Documented On 01/28/2024 3:45PM By Diogenes RÍOS ; [facility] Current Medications (continue as prescribed) traMADol HCl 50 MG Oral Tablet 01/27/2024 Provider: NATALIIA Colunga Diagnosis: Myalgia, unspeci fied site One tablet at bed time Last Documented On 4 1:30PM By Nataliia Bhat PA-C ; [facility] Xanax 0.25 MG Oral Tablet 01/16/2024 Provider: NATALIYA MEZA Diagnosis: Anxiety disorder , unspecified One tablet three times a day Last Documented On 4 12:41PM By Nataliya MEZA ; [facility] Pregabalin 150 MG Oral Capsule 01/16/2024 Provider: NATALIYA MEZA Diagnosis: Myalgia, unspeci fied site once daily Last Documented On 4 12:41PM By Nataliya MEZA ; [facility] Trelecharu Ellipta 100-62.5-25 MCG/ACT Inhalation Aerosol Powder Breath Activated 10/13/2023 Provider: NATALIYA MEZA Diagnosis: Chronic obstruct james pulmonary disease w (acute) exacerbation 1 puff daily Last Documented On 4 4:03PM By Nataliya MEZA ; [facility] guaiFENesin ER 600 MG Oral Tablet Extended Release 12 Hour 05/12/2023 Provider: NATALIYA MEZA Diagnosis: Chronic obstruct james pulmonary disease w (acute) exacerbation One tablet twice a day Last Documented On 3 2:08PM By Nataliya MEZA ; [facility] hydroCHLOROthiazide 25 MG Oral Tablet 05/05/2023 Provider: NATALIYA MEZA Diagnosis: Essential (prima ry) hypertension One tablet daily Last Documented On 3 11:14AM By Nataliya MEZA ; [facility] PARoxetine HCl 20 MG Oral Tablet 05/01/2023 Provider: NATALIYA MEZA Diagnosis: Adjustment disor jose guadalupe with mixed anxiety and depressed mood One tablet daily Last Documented On 3 8:34AM By Nataliya MEZA ; [facility] Lisinopril 5 MG Oral Tablet 05/01/2023 Provider: NATALIYA MEZA Diagnosis: Essential (prima ry) hypertension One tablet daily Last Documented On 3 8:34AM By Nataliya MEZA ; [facility] Aspirin Adult Low Dose 81 MG Oral Tablet Delayed Relea se 08/21/2021 Provider: Diagnosis: Last Documented On 08/21/2021 2:45PM By Anabella RÍOS ; [facility] Medications Administered Includes: Administered Medications from this encounter No Administered Medications Recorded Results Includes: Results discussed during this encounter No Results Recorded For Specified Dates History of Present Illness Includes: History of Present Illness from this encounter No History of Present Illness Recorded Social History No Social History Recorded - Smoking Status Unknown Medical History Includes: Medical History addressed during this encounter No Medical History Recorded Family History Includes: Family History addressed during [...] Time Check-Out Time Diagnosis RX ISSUE/REFILL NATALIYA GUO REPORTING DEVELOPER-C 4 3:30PM 11:59PM Insurance Includes: Active Insurance Policies Plan Name Member ID Group # Subscriber Relationship Effect james Dates 1 - [employer]/ MEDICARE GOLD CHOICE PLAN-A [id number] SIA Ching 2 - MEDICAID [place] MEDICARE SECOND [id number] SIA Ching Clinical Notes Includes: Clinical Notes from this encounter No Clinical Notes Recorded
--- OUTSIDE RECORDS SUMMARY | 2024-12-10 14:46 | XMS_ITS | Clinical Summary ---
Author Organization [facility] Address [address] [place] [address] Care Team Providers Care Survey Methodologist Name Role Phone Padma Gar MD Primary Care Provider [phone] Allergies No known active allergies Medications aspirin-omepraz ole 81-40 mg Tab,IR & Delay Rel,Multiphasic Take 81 mg by mouth daily. 2 Active fluticasone-ume clidinium-vilan terol (Trelegy Ellipta) 100-62.5-25 mcg Disk with Device Take 1 Puff by inhalation daily. 4 Active ALPRAZolam (Xanax) 0.25 mg tablet Take 0.25 mg by mouth nightly as needed. 4 Active lisinopriL (PRINIVIL) 5 mg tablet Take 5 mg by mouth daily. 3 Active pregabalin (LYRICA) 150 mg Capsule Take 150 mg by mouth daily at bedtime. 4 Active traMADoL (ULTRAM) 50 mg tablet Take 50 mg by mouth every 6 hours as needed. 4 Active hydroCHLOROthia zide 25 mg tablet Take 25 mg by mouth daily. Active PARoxetine HCl (PAXIL) 40 mg tablet Take 40 mg by mouth daily. Active exemestane (AROMASIN) 25 mg tablet Take 1 Tablet (25 mg) by mouth daily after breakfast. 90 Tablet 3 4 Active Active Problems No known active problems Encounters Date Type Department Care Team Description 11/03/2024 External Device Data [facility]CTION Provider, Abstract 10/27/2024 External Device Data [facility] Provider, Abstract 10/26/2024 External Device Data [facility] Provider, Abstract 10/23/2024 External Device Data [facility] Provider, Abstract 10/23/2024 External Device Data [facility] Provider, Abstract 10/20/2024 External Device Data [facility] Provider, Abstract 10/06/2024 External Device Data [facility] Provider, Abstract 10/06/2024 External Device Data [facility]STRACTION Provider, Abstract from Last 3 Months Family History Medical History Relation Name Comments No Known Problems Brother 1 No Known Problems Brother 2 No Known Problems Daughter Heart Disease Father Uterine Cancer Mother No Known Problems Sister 1 Heart Disease Sister 2 No Known Problems Son Relation Name Status Comments Brother 1 Alive Brother 2 Alive Daughter Alive Father Mother Alive Sister 1 Alive Sister 2 Alive Son Alive Social History Tobacco Use Types Packs/Day Years Used Date Smoking Tobacco: Every Day Cigarettes 0.5 52.9 Started: [birth year]/05/1972 Alcohol Use Standard Drinks/Week Comments Never 0 (1 standard drink = 0.6 oz pur e alcohol) Comments Unknown Sex and Gender Information Value Date Recorded Sex Assigned at Not on file Legal Sex Female 8:52 AM CDT Gender Identity Not on file Sexual Orientation Not on file Last Filed Vital Signs Vital Sign Reading Time Taken Comments Blood Pressure 101/64 01/05/2024 1:47 PM CDT Pulse 93 01/05/2024 1:47 PM CDT Temperature 35.8 C (96.4 F) 01/05/2024 1:47 PM CDT Respiratory Rate 20 01/05/2024 1:47 PM CDT Oxygen Saturation 96% 01/05/2024 1:47 PM CDT Inhaled Oxygen Concentration - - Weight 92.1 kg (203 lb) 01/05/2024 1:47 PM CDT Height 152.4 cm (5') 01/05/2024 1:47 PM CDT Body Mass Index 39.65 01/05/2024 1:47 PM CDT Plan of Treatment Health Maintenance Due Date Last Done Comments Pre-Diabetes and Diabetes Screening 1960 DTAP/TDAP/TD VACCINES (1 - Tdap) 1977 COLORECTAL SCREENING 11/11/2003 Colorectal Cancer Screening 11/11/2003 FIT-DNA Q 3 years 11/11/2003 FIT/FOBT Q 1 year 11/11/2003 Flex Sig/CT Colonography Q 5 years 11/11/2003 Lung Cancer Screening 2008 ZOSTER VACCINE (1 of 2) 2008 RSV VACCINE (60+ or ) (1 - Risk 60-74 years 1-dose series) 2018 INFLUENZA VACCINE (#1) 2024 PNEUMOCOCCAL VACCINE 50+ YEA RS (3 of 3 - PCV20 or PCV21) 05/23/2026 05/23/2021, 05/22/2020 OSTEOPOROSIS SCREENING 06/30/2028 3, 06/30/2023, 04/03/2020 Insurance [employer] [facility] Care Teams Survey Methodologist Relationship Specialty Start Date End Date Padma Gar MD [address] [place] [phone] PCP - General Family Practice 01/05/24
--- OUTSIDE RECORDS SUMMARY | 2024-12-10 14:46 | XMS_ITS | Clinical Summary ---
Author Organization 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 Myalgia and Myositis 02/21/2022 NATALIYA HOUGE MANAGER NURSING-C Active Last Documented On 2 11:38AM ; [facility] Anxiety Disorder Nos 03/25/2021 LINETTE WILLIS MD Active Last Documented On 1 12:23PM ; [facility] Essential Hypertension Malignant 03/25/2021 NAWAF PALAFOX MD Active Last Documented On 1 12:23PM ; [facility] Past Visits Onset Date Resolved Date Provider Condition Status Skin Subcutaneous Tissue Disorders in Diseases Classified Elsewhere 05/12/2023 NATALIYA PLAZA MANAGER NURSING-C Active Last Documented On 3 2:08PM ; [facility] Adjustment Disorder with Anx iety and Depressed Mood 10/25/2020 LINETTE PALAFOX MD Active Last Documented On 1 5:14PM ; [facility] Anxiety disorder, unspecified 02/04/2020 BINH PLAZA MANAGER NURSING-C Active Last Documented On 0 8:56AM ; [facility] Chronic Obstructive Pulmonar y Disease with Exacerbation 02/04/2020 LINETTE PALAFOX MD Active Last Documented On 1 5:14PM ; [facility] Breast Complaints 02/04/2020 NATALIYA LOZOYA MANAGER NURSING-C Active Last Documented On 2 5:47PM ; [facility] Plan of Treatment Follow up in the office as needed. - Last Documented On 11/03/2023 1:35PM ; [facility] Instructions to patient Intervention and counseling on cessation of tobacco use Last Documented On 4 1:04PM ; [facility] Assessments Includes: Assessments from this encounter Findings - [I10 - Essential (primary) hypertension] Malignant essential hypertension - Last Documented On 11/03/2023 1:35PM ; [facility] - [I97.2 - Postmastectomy lymphedema syndrome] Postmastectomy lymphedema syndrome - Last Documented On 11/03/2023 1:35PM ; [facility] - [M79.10 - Myalgia, unspecified site] Myalgia and myositis - Last Documented On 11/03/2023 1:35PM ; [facility] - [F41.9 - Anxiety disorder, unspecified] Anxiety disorder NOS - Last Documented On 11/03/2023 1:35PM ; [facility] Instructions Includes: Instructions from this encounter Instructions to patient Intervention and counseling on cessation of tobacco use Last Documented On 4 1:04PM ; [facility] Medical Equipment - Implanted Devices Includes: Current Devices No Medical Equipment Recorded Medications Includes: Medications discussed during this encounter and other current Medications Discontinued / Stopped on this date NATALIYA PLAZA MANAGER NURSING-C on 06/12/2023 traMADol HCl 50 MG Oral Tablet Provider: NATALIYA GIVENSP-C Diagnosis: Myalgia, unspeci fied site Last Documented On 4 1:17PM By Nataliya Plaza MANAGER NURSING-C ; [facility] Bactrim DS 800-160 MG Oral Tablet Provider: NATALIYA PALACIO MANAGER NURSING-C Diagnosis: Oth disorders of skin, subcu in diseases classd elswhr Last Documented On 11/03/2023 1:00PM By Diogenes RÍOS ; [facility] New / Renewed during this visit NATALIYA MEZA on 11/03/2023 traMADol HCl 50 MG Oral Tablet Provider: NATALIYA MEZA 30 day supply: 30 tablet, 0 refills Diagnosis: Myalgia, unspecified site One tablet at bed time Pharmacy: [address], [address] - Last Documented On 4 12:57PM By aNtaliya MEZA ; [facility] Current Medications (continue as prescribed) Albuterol Sulfate HFA 108 (90 Base) MCG/ACT Inhalation Aerosol Solution 01/28/2024 Provider: NATALIYA MEZA Diagnosis: Anxiety disorder , unspecified 2 puff q 4 hours prn Last Documented On 01/28/2024 3:45PM By Diogenes RÍOS ; [facility] traMADol HCl 50 MG Oral Tablet 01/27/2024 Provider: NATALIIA Colunga Diagnosis: Myalgia, unspeci fied site One tablet at bed time Last Documented On 4 1:30PM By Nataliia Bhat PA-C ; [facility] Xanax 0.25 MG Oral Tablet 01/16/2024 Provider: NATALIYA MEZA Diagnosis: Anxiety disorder , unspecified One tablet three times a day Last Documented On 4 12:41PM By Nataliya MEZA ; [facility] Pregabalin 150 MG Oral Capsule 01/16/2024 Provider: NATALIYA MEZA Diagnosis: Myalgia, unspeci fied site once daily Last Documented On 4 12:41PM By Nataliya MEZA ; [facility] Trelegy Ellipta 100-62.5-25 MCG/ACT Inhalation Aerosol Powder Breath Activated 10/13/2023 Provider: NATALIYA MEZA Diagnosis: Chronic obstruct james pulmonary disease w (acute) exacerbation 1 puff daily Last Documented On 4 4:03PM By Nataliya MEZA ; [facility] guaiFENesin ER 600 MG Oral Tablet Extended Release 12 Hour 05/12/2023 Provider: NATALIYA MEZA Diagnosis: Chronic obstruct james pulmonary disease w (acute) exacerbation One tablet twice a day Last Documented On 3 2:08PM By Nataliya MEZA ; [facility] hydroCHLOROthiazide 25 MG Oral Tablet 05/05/2023 Provider: NATALIYA MEZA Diagnosis: Essential (prima ry) hypertension One tablet daily Last Documented On 3 11:14AM By Nataliya MEZA ; [facility] PARoxetine HCl 20 MG Oral Tablet 05/01/2023 Provider: NATALIYA MEZA Diagnosis: Adjustment disor jose guadalupe with mixed anxiety and depressed mood One tablet daily Last Documented On 3 8:34AM By Nataliya MEZA ; [facility] Lisinopril 5 MG Oral Tablet 05/01/2023 Provider: NATALIYA MEZA Diagnosis: Essential (prima ry) hypertension One tablet daily Last Documented On 3 8:34AM By Nataliya MEZA ; [facility] Aspirin Adult Low Dose 81 MG Oral Tablet Delayed Relea se 08/21/2021 Provider: Diagnosis: Last Documented On 08/21/2021 2:45PM By Anabella RÍOS ; [facility] Past Medications on file Trelegy Ellipta 100-62.5-25 MCG/INH Inhalation Aerosol Powder Breath Activated 09/21/2020 - 12/20/2020 Provider: LINETTE PALAFOX MD Diagnosis: Chronic obstruct james pulmonary disease w (acute) exacerbation INHALE 1 PUFF BY MOUTH ONCE DAILY AT BEDTIME Last Documented On 09/21/2020 2:34PM By Miladis RÍOS ; [facility] Medications Administered Includes: Administered Medications from this encounter No Administered Medications Recorded Vital Signs Includes: Vital Signs from this encounter Vital Name 11/03/2023 12:59P Blood Pressure Sitting (mmHg) 130/64 Pulse Rate-Sitting (bpm) 88 Respiration Rate (breaths/min) 20 Temp-Oral (F) 98.1 Height (in) 63 Weight (lb) 207 Body Mass Index 36.7 Body Surface Area 2 Oxygen Saturation (%) 97 Last Documented: On 11/03/2023 1:03PM ; [facility] Results Includes: Results discussed during this encounter No Results Recorded For Specified Dates History of Present Illness Includes: History of Present Illness from this encounter SUNSHINE VILLASEÑOR is a 62 year old female. Source of patient information was patient - Allergy list reviewed - Problem list reviewed - Medication reconciliation performed - Medication list reviewed Here today for check up. Anxiety well controlled on current therapy- COPD-well controlled Bilat arm pain with lymphedema- still having pain would like to resume tramadol Having abdominal distension-with increased SOB had cirrhosis post chemo but we need to check belly today Needs Dexa and Medicare Wellness Visit Social History Description Last Updated Consuming 5 or more drinks per day None 11/03/2023 Last Documented On 4 1:35PM ; [facility] Not recovering alcoholic 11/03/2023 Last Documented On 4 1:35PM ; [facility] Not recovering from substance abuse 10/16 Last Documented On 4 1:35PM ; [facility] Number of times used recreat ional drug/ prescription drug for nonmedical reason. None 11/03/2023 Last Documented On 4 1:35PM ; [facility] Current smoker 02/21/2022 Last Documented On 4 1:00PM ; [facility] Good exercise habits 07/23/2020 Last Documented On 4 1:00PM ; [facility] No caffeine use 07/23/2020 Last Documented On 4 1:00PM ; [facility] No family problems 07/23/2020 Last Documented On 4 1:00PM ; [facility] No interpersonal problems 07/23/2020 Last Documented On 4 1:00PM ; [facility] No job change 07/23/2020 Last Documented On 4 1:00PM ; [facility] No physical disability 07/23/2020 Last Documented On 4 1:00PM ; [facility] No recent financial changes 07/23/2020 Last Documented On 4 1:00PM ; [facility] No recent legal problems 07/23/2020 Last Documented On 4 1:00PM ; [facility] No work-related circumstances 07/23/2020 Last Documented On 4 1:00PM ; [facility] Not using alcohol 07/23/2020 Last Documented On 4 1:00PM ; [facility] Not using drugs 07/23/2020 Last Documented On 4 1:00PM ; [facility] Smoker smokes 3 cig/day 06/22/2020 Last Documented On 4 1:00PM ; [facility] Cigarette smoking 02/04/2020 Last Documented On 4 1:00PM ; [facility] Current every day smoker 02/04/2020 Last Documented On 4 1:00PM ; [facility] Current smoker for 35 years 02/04/2020 Last Documented On 4 1:00PM ; [facility] Moderate cigarette smoker 02/04/2020 Last Documented On 4 1:00PM ; [facility] Smoking Status Unknown Procedures and Surgical History Includes: Procedures from this encounter Procedures Code Diagnosis Performing Provider Service L ocation Service Date plan of care reviewed and agreed to by the patient Last Documented On 4 1:00PM ; [facility] intervention and counseling on cessation of 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 review of medications documented 1160F Last Documented On 4 1:00PM ; [facility] counseling about safety issues Last Documented On 4 1:00PM ; [facility] assessment of substance use performed Last Documented On 4 1:00PM ; [facility] encouragement to exercise Last Documented On 4 1:00PM ; [facility] screening for safety concerns Last Documented On 4 1:00PM ; [facility] Clinical summary provided to patient Last Documented On 4 1:00PM ; [facility] Medical History Includes: Medical History addressed during this encounter Description Last Updated Surgery 1979--child ~1994-- c/s Last Documented On 4 1:00PM ; [facility] Family History Includes: Family History addressed during this encounter No Family History Recorded Review of Systems Includes: Review of Systems from this encounter Systemic: General overall feeling. Feeling fine and no recent weight change. No pain. Head: No head symptoms. Eyes: No eye symptoms. Otolaryngeal: No otolaryngeal symptoms. Cardiovascular: No chest pain or discomfort. Pulmonary: No dyspnea. Gastrointestinal: No gastrointestinal symptoms. Genitourinary: No genitourinary symptoms. Musculoskeletal: No musculoskeletal symptoms. Neurological: No neurological symptoms. Psychological: No psychological symptoms. Skin: No skin symptoms. Mental Status Includes: Mental Status from this encounter Description Oriented to time, place, and person Functional Status Includes: Functional Status from this encounter No Functional Status Recorded Physical Exam Includes: Physical Exam from this encounter Allergies Includes: Active Allergies No Known Allergies Encounters Encounter Provider Location Date Check-In Time Check-Out Time Diagnosis CHECK UP NATALIYA GIVENSPKeanu [facility]- 11/03/19 24 12:55PM 1:33PM Anxiety Disorder Nos,Myalgia and Myositis,Essenti al Hypertension Malignant,Davon stectomy Lymphedema Syndrome Insurance Includes: Active Insurance Policies Plan Name Member ID Group # Subscriber Relationship Effect james Dates 1 - [employer]/ MEDICARE GOLD CHOICE PLAN-A [id number] SIA VILLASEÑOR Self 2 - MEDICAID OF [place] MEDICARE SECOND [id number] SIA VILLASEÑOR Self Clinical Notes Includes: Clinical Notes from this encounter * Progress note Date Encounter Last Documented by 11/03/2023 CHECK UP Last documented on 11/03/2023; 1:35 PM, NATALIYA MEZA; [facility] Active Problems & Conditions [...] Elsewhere Chief Complaint The Chief Complaint is: Check up. History of Present Illness SIA VILLASEÑOR is a 62 year old female. Source of patient information was patient - Allergy list reviewed - Problem list reviewed - Medication reconciliation performed - Medication list reviewed Here today for check up. Anxiety well controlled on current therapy- COPD-well controlled Bilat arm pain with lymphedema- still having pain would like to resume tramadol Having abdominal distension-with increased SOB had cirrhosis post chemo but we need to check belly today Needs Dexa and Medicare Wellness Visit Current Medication - Albuterol Sulfate HFA 108 (90 Base) MCG/ACT Inhalation Aerosol Solution 2 puff q 4 hours prn, 30 days, 6 refills - Aspirin Adult Low Dose 81 MG Oral Tablet Delayed Release One tablet daily 0 days, 0 refills - guaiFENesin ER 600 MG Oral Tablet Extended Release 12 Hour One tablet twice a day, 30 days, 11 refills - hydroCHLOROthiazide 25 MG Oral Tablet [...] smoker, for 35 years, cigarette smoking moderate, and smoker smokes 3 cig/day. Alcohol: Not using alcohol. Consuming 5 or more drinks per day None. Not recovering alcoholic. Drug Use: Not using drugs and not recovering from substance abuse. Number of times used recreational drug/ prescription drug for nonmedical reason. None. Habits: Good exercise habits. Functional: No physical disability. Allergies - No Known Allergies Review Of Systems Systemic: General overall feeling. Feeling fine and no recent weight change. No pain. Head: No head symptoms. Eyes: No eye symptoms. Otolaryngeal: No otolaryngeal symptoms. Cardiovascular: No chest pain or discomfort. Pulmonary: No dyspnea. Gastrointestinal: No gastrointestinal symptoms. Genitourinary: No genitourinary symptoms. Musculoskeletal: No musculoskeletal symptoms. Neurological: No neurological symptoms. Psychological: No psychological symptoms. Skin: No skin symptoms. Physical Findings - Vitals taken 11/03/2023 12:59 pm BP-Sitting 130/64 mmHg Pulse Rate-Sitting 88 bpm Respiration Rate 20 per min Temp-Oral 98.1 F Height 63 in Weight 207 lbs Body Mass Index 36.7 kg/m2 Body Surface Area 2 m2 Oxygen Saturation 97 % General Appearance: - Well-appearing. - Awake. - Alert. - Well developed. Eyes: General/bilateral: Pupils: - PERRLA. Ears: Right Ear: - Examined. Tympanic Membrane: - Examined. Left Ear: - Examined. Tympanic Membrane: - Examined. Nose: General/bilateral: Nasal Erythema: - No nasal erythema was noted. Nasal Edema: - No nasal edema was noted. Pharynx: Oropharynx: - Normal. - Not inflamed. - Had no exudate. Lymph Nodes: - Supraclavicular lymph nodes were not enlarged. Lungs: - Respiration rhythm and depth was normal. - Clear to auscultation. - Normal breath sounds/voice sounds. Cardiovascular: Heart Rate And Rhythm: - Normal. Murmurs: - No murmurs were heard. Edema: - Not present. Abdomen: Auscultation: - Bowel sounds were normal abdominal distension. Palpation: - Abdominal non-tender. Musculoskeletal System: General/bilateral: - Musculoskeletal system: normal. - Normal movement of all extremities. Neurological: - Oriented to time, place, and person. Psychiatric: - Mood was calm. - Mood was pleasant. Skin: - General appearance was normal. Assessment - [I10 - Essential (primary) hypertension] Malignant essential hypertension - [I97.2 - Postmastectomy lymphedema syndrome] Postmastectomy lymphedema syndrome - [M79.10 - Myalgia, unspecified site] Myalgia and myositis - [F41.9 - Anxiety disorder, unspecified] Anxiety disorder NOS Therapy - Encouragement to exercise. - Intervention and counseling on cessation of tobacco use. - Clinical summary provided to patient. - Plan of care reviewed and agreed to by the patient. Counseling/Education - Education and instructions - Discussed Healthy Eating - Discussed Exercise - Clinical summary provided to patient Plan StartCited - Abdominal distension (gaseous) Radiology @ [facility]/CT Scan: Abdominal CT w/o contrast Instructions: abdominal distensios hx of cirrohis and breast cancer-chemo Lab: Comp Metabolic Panel Lab: ALT Lab: AST Lab: Ammonia, Plasma Lab: *CBC W/DIFF EndCited StartCited - Essential (primary) hypertension Lab: Lipid Panel EndCited StartCited - Myalgia, unspecified site traMADol HCl 50 MG tablet One tablet at bed time, 30 days, 0 refills EndCited Follow up in the office as needed. Practice Management Use of tobacco assessment performed and patient screened for future fall risk Review of medications documented; Screening for safety concerns; Counseling about safety issues. Health Reminders - Assess Blood Pressure satisfied 11/03/2023. - Assess BMI satisfied 11/03/2023. - Assess Screening for Fall Risk satisfied 11/03/2023. - Assess Tobacco Use satisfied 11/03/2023. - Depression Screening satisfied 11/03/2023. - DEXA satisfied 09/22/2023. - Follow Up Plan BMI Management satisfied 11/03/2023. - Mammogram satisfied 11/03/2023. - Pneumovax satisfied 11/03/2023. - Smoking & Tobacco Cessation Intervention and Counseling satisfied 11/03/2023.
--- OUTSIDE RECORDS SUMMARY | 2024-12-10 14:46 | XMS_ITS | Clinical Summary ---
Author Organization [facility] Address [address] [place] [address] Phone Care Team Providers Care Fast Food Cashier Name Role Phone ADRYAN KURTZ MD Primary Care Provider [phone] Reason for Visit and Chief Complaint RX ISSUE/REFILL Problems Includes: Problems addressed during this encounter and other active Problems All Visits Onset Date Resolved Date Provider Condition S tatus Postmastectomy Lymphedema Syndrome 05/12/2023 NATALIYA PLAZA CLIENT SUCCESS SPECIALIST-C Active Last Documented On 3 2:08PM ; [facility] Skin Subcutaneous Tissue Disorders in Diseases Classified Elsewhere 05/12/2023 NATALIYA TRAN Z CLIENT SUCCESS SPECIALIST-C Active Last Documented On 3 2:08PM ; [facility] Myalgia and Myositis 02/21/2022 NATALIYA JAVIER-CHRISTEL CLIENT SUCCESS SPECIALIST-C Active Last Documented On 2 11:38AM ; [facility] Anxiety Disorder Nos 03/25/2021 LINETTE WILLIS MD Active Last Documented On 1 12:23PM ; [facility] Essential Hypertension Malignant 03/25/2021 NAWAF PALAFOX MD Active Last Documented On 1 12:23PM ; [facility] Adjustment Disorder with Anx iety and Depressed Mood 10/25/2020 LINETTE PALAFOX MD Active Last Documented On 1 5:14PM ; [facility] Anxiety disorder, unspecified 02/04/2020 BINH PLAZA CLIENT SUCCESS SPECIALIST-C Active Last Documented On 0 8:56AM ; [facility] Chronic Obstructive Pulmonar y Disease with Exacerbation 02/04/2020 LINETTE PALAFOX MD Active Last Documented On 1 5:14PM ; [facility] Breast Complaints 02/04/2020 NATALIYA PINO-Phi Active Last Documented On 2 5:47PM ; [facility] Plan of Treatment No Plan of Treatment Recorded Assessments Includes: Assessments from this encounter No Assessments Recorded Medical Equipment - Implanted Devices Includes: Current Devices No Medical Equipment Recorded Medications Includes: Medications discussed during this encounter and other current Medications New / Renewed during this visit NATALIYA PINO-Phi on 03/13/2023 Trelegy Ellipta 100-62.5-25 MCG/ACT Inhalation Aerosol Powder Breath Activated Provider: NATALIYA MEZA 30 day supply: 60 each, 6 refills Diagnosis: Chronic obstructive pulmonary disease w (acute) exacerbation 1 puff daily Pharmacy: [address], [address] - Last Documented On 4 3:47PM By Nataliya MEZA ; [facility] Current Medications (continue as prescribed) Albuterol Sulfate HFA 108 (90 Base) MCG/ACT Inhalation Aerosol Solution 01/28/2024 Provider: NATALIYA MEZA Diagnosis: Anxiety disorder , unspecified 2 puff q 4 hours prn Last Documented On 01/28/2024 3:45PM By Diogenes RÍOS ; [facility] traMADol HCl 50 MG Oral Tablet 01/27/2024 Provider: NATALIIA Colunga Diagnosis: Myalgia, unspeci fied site One tablet at bed time Last Documented On 4 1:30PM By Nataliia Bhat PA-C ; [facility] Xanax 0.25 MG Oral Tablet 01/16/2024 Provider: NATALIYA MEZA Diagnosis: Anxiety disorder , unspecified One tablet three times a day Last Documented On 4 12:41PM By Nataliya MEZA ; [facility] Pregabalin 150 MG Oral Capsule 01/16/2024 Provider: NATALIYA MEZA Diagnosis: Myalgia, unspeci fied site once daily Last Documented On 4 12:41PM By Nataliya MEZA ; [facility] Trelegy Ellipta 100-62.5-25 MCG/ACT Inhalation Aerosol Powder Breath Activated 10/13/2023 Provider: NATALIYA MEZA Diagnosis: Chronic obstruct james pulmonary disease w (acute) exacerbation 1 puff daily Last Documented On 4 4:03PM By Nataliya MEZA ; [facility] guaiFENesin ER 600 MG Oral Tablet Extended Release 12 Hour 05/12/2023 Provider: NATALIYA MEZA Diagnosis: Chronic obstruct james pulmonary disease w (acute) exacerbation One tablet twice a day Last Documented On 3 2:08PM By Nataliya MEZA ; [facility] hydroCHLOROthiazide 25 MG Oral Tablet 05/05/2023 Provider: NATALIYA MEZA Diagnosis: Essential (prima ry) hypertension One tablet daily Last Documented On 3 11:14AM By Nataliya MEZA ; [facility] PARoxetine HCl 20 MG Oral Tablet 05/01/2023 Provider: NATALIYA MEZA Diagnosis: Adjustment disor jose guadalupe with mixed anxiety and depressed mood One tablet daily Last Documented On 3 8:34AM By Nataliya MEZA ; [facility] Lisinopril 5 MG Oral Tablet 05/01/2023 Provider: NATALIYA MEZA Diagnosis: Essential (prima ry) hypertension One tablet daily Last Documented On 3 8:34AM By Nataliya Plaza CLIENT SUCCESS SPECIALIST-C ; [facility] Aspirin Adult Low Dose 81 MG Oral Tablet Delayed Relea se 08/21/2021 Provider: Diagnosis: Last Documented On 08/21/2021 2:45PM By Anabella RÍOS ; [facility] Medications Administered Includes: Administered [...] Time Check-Out Time Diagnosis RX ISSUE/REFILL NATALIYA PLAZA CLIENT SUCCESS SPECIALIST-C 3 2:03PM 11:59PM Insurance Includes: Active Insurance Policies Plan Name Member ID Group # Subscriber Relationship Effect james Dates 1 - [employer]/ MEDICARE GOLD CHOICE PLAN-A [id number] SIA Ching 2 - MEDICAID OF [place] MEDICARE SECOND [id number] SIA Ching Clinical Notes Includes: Clinical Notes from this encounter No Clinical Notes Recorded
--- OUTSIDE RECORDS SUMMARY | 2024-12-10 14:46 | XMS_ITS ---
Author Organization [facility] [address] [facility] Address [address] [place] [address] Care Team Providers Care Carriage Dogger Name Role Phone Celia Dale MD Unavailable Keo Garcia MD Unavailable Aurelia Hernandez MD PhD Unavaila ble Franki Mckeon MD Unavailable Roberta Daley MD Unavailable [phone] Armen Dupree MD Unavailable Roz Nicholas LANDRY Unavailable Unavailable Nataliia Bhat Primary Care Provider Active Problems Problem Noted Date Diagnosed Date Pain of upper extremity 08/11/2024 Encounter for follow-up exam ination after completed treatment for malignant neoplasm 03/13/2023 Personal history of irradiation 03/13/2023 FDC current use of aromatase inhibitor Cervical spinal [...] from 03/13/2020:Stage IIA(cT2, cN0, cM0, G2, ER+, NH-, HER2-) - Signed by Kalani Andino MD on 04/07/2020 Malignant neoplasm of upper- outer quadrant of left breast in female, estrogen receptor positive 03/12/2020 Cancer Staging:Clinical stage from 03/15/2020:Stage IA(cT1c, cN0, cM0, G2, ER+, NH+, HER2-) - Signed by Kalani Andino MD on 04/07/2020 Encounter to discuss treatment options 0 Anxiety state 02/04/2020 Obstructive chronic bronchitis with exacerbation 02/04/2020 Other sign and symptom in breast 02/04/2020 Osteochondritis dissecans 11/15/2010 Chondromalacia of patella 11/15/2010 Bilateral hand numbness Current Treatment and Therapy Plans Hydration Therapy Plan* Plan Start Date:07/04/2022 Plan Provider:Armen Dupree MD Linked Problems Malignant neoplasm of lower- outer quadrant of right breast of female, estrogen receptor positive (HCC)Malignant neoplasm of upper-outer quadrant of left breast in female, estrogen receptor positive (HCC)Chemotherapy-induced neutropenia Treatment Medications No medications scheduled. Past Treatment and Therapy Plans Line Care Plan Name Start Date Discontinue Date Treatment Medications Discontinue Reason Plan Provider IV Maintenance Therapy Plan & Alteplase (CATHFLO ACTIVASE) - orders for occluded catheters 06/26/2020 10/28/2023 No medications scheduled. Automatic discontinuation of dormant plans Raghav Ackerman MD Oncology Chemotherapy Treatment Plan Name Start Date Discontinue Date Treatment Medications Discontinue Reason Plan Provider Cycles Dose-Dense AC: DOXOrubicin (ADRIAMYCIN) / Cyclophosphamide followed by: PACLitaxel Weekly x 12 - Breast 020 12/19/2020 cycloPHOSphamide (CYTOXAN)cycloPHOS phamide IVPB in 250 mL (vial 200 mg/mL)([id number])DOXOr ubicin (ADRIAMYCIN)DOXOru bicin (ADRIAMYCIN) 2 mg/mLPACLitaxel (TAXOL)PACLItaxel (TAXOL) IVPB in 250 mL Therapy Complete Raghav Ackerman MD 8 of 8 cycles started Specialty Infusion Treatment Plan Name Start Date Discontinue Date Treatment Medications Discontinue Reason Plan Provider HYDRATION THERAPY PLAN 10/10/2020 12/19/2020 No medications scheduled. Therapy Complete Raghav Ackerman MD Radiation Treatments * Course [id number]/25/2021 - 02/16/2021 Treatment Period Energy Fraction Dose Fractions Total Dose Plans Planned LT CW 01/25/2021 - 02/16/2021 266 16 / 4,256 RT CW 01/25/2021 - 02/16/2021 266 16 / 4,256 Reference Points Delivered PTV_L_CW-Nodes 01/25/2021 - 02/16/2021 4,256 PTV_R_CW-NODES 01/25/2021 - 02/16/2021 4,256 Lifetime Dose Tracking * Chemical Lifetime Dose Automatic Entry Manual Entr y doxorubicin 243.247 mg/m2 (453.6 mg) 243.247 mg/m2 (453.6 mg) 0 mg/m2 (0 mg) Fluoro Time 1.215 minutes 1.215 minutes 0 minutes doxorubicin isotoxic equivalent (Please manually verify calculation) 243.247 mg/m2 (453.6 mg) 243.247 mg/m2 (453.6 mg) 0 mg/m2 (0 mg) Air kerma at the reference point (Ka,r) 18.81 mGy 18.81 mGy 0 mGy
--- OUTSIDE RECORDS SUMMARY | 2024-12-10 14:46 | XMS_ITS ---
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 NATALIYA HAYSER-LANLTZ WATCHMAKER APPRENTICE-C Active Last Documented On 3 2:08PM ; [facility] Skin Subcutaneous Tissue Disorders in Diseases Classified Elsewhere 05/12/2023 NATALIYA HAYSER-HULT Z WATCHMAKER APPRENTICE-C Active Last Documented On 3 2:08PM ; [facility] Myalgia and Myositis 02/21/2022 NATALIYA HERBERTINGER-HULTZ WATCHMAKER APPRENTICE-C Active Last Documented On 2 11:38AM ; [facility] Anxiety Disorder Nos 03/25/2021 LINETTE WILLIS MD Active Last Documented On 1 12:23PM ; [facility] Essential Hypertension Malignant 03/25/2021 NAWAF PALAFOX MD Active Last Documented On 1 12:23PM ; [facility] Adjustment Disorder with Anx iety and Depressed Mood 10/25/2020 LINETTE PALAFOX MD Active Last Documented On 1 5:14PM ; [facility] Anxiety disorder, unspecified 02/04/2020 BINH HAYSER-LANLTZ WATCHMAKER APPRENTICE-C Active Last Documented On 0 8:56AM ; [facility] Chronic Obstructive Pulmonar y Disease with Exacerbation 02/04/2020 LINETTE PALAFOX MD Active Last Documented On 1 5:14PM ; [facility] Breast Complaints 02/04/2020 NATALIYA Triplett SALAS GIVENSP-Phi Active Last Documented On 2 5:47PM ; [facility] Plan of Treatment Findings Encounter Date Ordered follow-up visit 3 month CHECK UP with ADIS PALAFOX MD 02/23/2021 Last Documented On 1 12:24PM ; [facility] Ordered return to the clinic if condition worsens or new symptoms arise CHECK UP with LINETTE PALAFOX MD 02/23/2021 Last Documented On 1 12:24PM ; [facility] PLAN [Use for s.o.a.p. note free text] CHECK UP with LINETTE PALAFOX MD 02/23/2021 Last Documented On 1 12:24PM ; [facility] Ordered follow-up visit 1 we ek Patient was given a refill on Xanax. Started on hydralazine. She was given a sample of Anoro FOLLOW UP with LINETTE PALAFOX MD 10/25/2020 Last Documented On 1 5:17PM ; [facility] Ordered return to the clinic if condition worsens or new symptoms arise FOLLOW UP with LINETTE PALAFOX MD 10/25/2020 Last Documented On 1 5:17PM ; [facility] PLAN [Use for s.o.a.p. note free text] FOLLOW UP with LINETTE PALAFOX MD 10/25/2020 Last Documented On 1 5:17PM ; [facility] Ordered follow-up visit 3 months * PHONE CALL wi LINETTE PALAFOX MD 07/24/2020 Last Documented On 0 11:44AM ; [facility] Ordered return to the clinic if condition worsens or new symptoms arise * PHONE CALL with LINETTE PALAFOX MD 07/24/2020 Last Documented On 0 11:44AM ; [facility] PLAN [Use for s.o.a.p. note free text] * PHONE CALL with LINETTE PALAFOX MD 07/24/2020 Last Documented On 0 11:44AM ; [facility] Ordered follow-up visit 3 month PROBLEM VISIT wi th LINETTE PALAFOX MD 06/22/2020 Last Documented On 0 2:26PM ; [facility] Ordered return to the clinic if condition worsens or new symptoms arise PROBLEM VISIT with LINETTE PALAFOX MD 06/22/2020 Last Documented On 0 2:26PM ; [facility] PLAN [Use for s.o.a.p. note free text] PROBLEM VISIT with LINETTE PALAFOX MD 06/22/2020 Last Documented On 0 2:26PM ; [facility] Referrals To Diagnosis Breast Specialist [facility] [address] [place] [address] - Malignant neoplasm of unsp site of unspecified female breast Note: Dx bilateral breast ca ncersend to [facility] to see Dr. Reynaldo Figueredo Last Documented On 0 4:45PM ; [facility] Wound Care [facility] [address] [place], [place] [id number] - Postmastectomy lymphedema syndrome Note: lymphedema evaluate an d treat bilat arms Last Documented On 3 12:26PM ; [facility] Instructions to patient Intervention and counseling on cessation of tobacco use Last Documented On 4 1:04PM ; [facility] Intervention and counseling on cessation of tobacco use Last Documented On 2 10:07AM ; [facility] Lose weight Last Documented On 2 5:56PM ; [facility] Intervention and counseling on cessation of tobacco use Last Documented On 1 2:45PM ; [facility] Smoking cessation Last Documented On 0 9:25AM ; [facility] Intervention and counseling on cessation of tobacco use Last Documented On 0 8:08AM ; [facility] Lose weight your BMI is 29.5 ~A BMI of less than 18.5 kg/m2 indicates you are underweight. You may need to gain weight. ~If your BMI is 19 to 24.9 kg/m2, you're are a healthy weight, and should aim to stay that way. ~A BMI of 25 to 29 kg/m2 is defined as overweight. It's a good idea to lose some weight for your health's sake, or at least aim to prevent further weight gain. ~A BMI of over 30 kg/m2 is defined as obese and means your health is at risk. Losing weight will improve your health. ~ Last Documented On 0 9:29AM ; [facility] Assessments Includes: Assessments for all patient encounters Findings Encounter Date Anxiety disorder NOS CHECK UP with NATALIYA Ioana VIDAL-BLAYNEZ WATCHMAKER APPRENTICE-C 11/03/2023 Last Documented On 4 1:35PM ; [facility] Malignant essential hypertension CHECK U P with NATALIYA Ioana HAYSER-HULTZ WATCHMAKER APPRENTICE-C 11/03/2023 Last Documented On 4 1:35PM ; [facility] Myalgia and myositis CHECK UP with NATALIYA Ioana VIDAL-HULTZ WATCHMAKER APPRENTICE-C 11/03/2023 Last Documented On 4 1:35PM ; [facility] Postmastectomy lymphedema syndrome CHECK UP with NATALIYA Ioana VIDAL-HUZ WATCHMAKER APPRENTICE-C 11/03/2023 Last Documented On 4 1:35PM ; [facility] Chronic obstructive pulmonar y disease with exacerbation CHECK UP with NATALIYA Ioana VIDAL-BLAYNEZ WATCHMAKER APPRENTICE-C 05/12/2023 Last Documented On 3 2:09PM ; [facility] Disorders of skin and subcut aneous tissue in diseases classified elsewhere CHECK UP with NATALIYA Ioana VIDAL-HULTZ WATCHMAKER APPRENTICE-C 05/12/2023 Last Documented On 3 2:09PM ; [facility] Malignant essential hypertension CHECK U P with NATALIYA Ioana HAYSER-HULTZ WATCHMAKER APPRENTICE-C 05/12/2023 Last Documented On 3 2:09PM ; [facility] Postmastectomy lymphedema syndrome CHECK UP with NATALIYA Ioana VIDAL-LANLTZ WATCHMAKER APPRENTICE-C 05/12/2023 Last Documented On 3 2:09PM ; [facility] Adjustment disorder with anx iety and depressed mood CHECK UP with NATALIYA Ioana CLONINGER-HULTZ WATCHMAKER APPRENTICE-C 02/21/2022 Last Documented On 2 11:48AM ; [facility] Malignant essential hypertension CHECK U P with NATALIYA Ioana CLONINGER-HULTZ WATCHMAKER APPRENTICE-C 02/21/2022 Last Documented On 2 11:48AM ; [facility] Myalgia and myositis CHECK UP with NATALIYA Ioana CLONINGER-HULTZ WATCHMAKER APPRENTICE-C 02/21/2022 Last Documented On 2 11:48AM ; [facility] Adjustment disorder with anx iety and depressed mood CHECK UP with NATALIYA E CLONINGER-HULTZ WATCHMAKER APPRENTICE-C 08/21/2021 Last Documented On 2 5:56PM ; [facility] Anxiety disorder NOS CHECK UP with NATALIYA Ioana CLONINGER-HULTZ WATCHMAKER APPRENTICE-C 08/21/2021 Last Documented On 2 5:56PM ; [facility] Assessment of breast complaints CHECK UP with NATALIYA Ioana CLONINGER-HULTZ WATCHMAKER APPRENTICE-C 08/21/2021 Last Documented On 2 5:56PM ; [facility] Chronic obstructive pulmonar y disease with exacerbation CHECK UP with NATALIYA Ioana CLONINGER-HULTZ WATCHMAKER APPRENTICE-C 08/21/2021 Last Documented On 2 5:56PM ; [facility] Malignant essential hypertension CHECK U P with NATALIYA Ioana CLONINGER-HULTZ WATCHMAKER APPRENTICE-C 08/21/2021 Last Documented On 2 5:56PM ; [facility] Anxiety disorder NOS CHECK UP with LINETTE ORANTES MD 02/23/2021 Last Documented On 1 12:24PM ; [facility] Malignant essential hypertension CHECK UP with Ac PALAFOX MD 02/23/2021 Last Documented On 1 12:24PM ; [facility] Adjustment disorder with anx iety and depressed mood FOLLOW UP with LINETTE PALAFOX MD 10/25/2020 Last Documented On 1 5:17PM ; [facility] Chronic obstructive pulmonar y disease with exacerbation FOLLOW UP with LINETTE PALAFOX MD 10/25/2020 Last Documented On 1 5:17PM ; [facility] Malignant essential hypertension FOLLOW UP with LINETTE PALAFOX MD 10/25/2020 Last Documented On 1 5:17PM ; [facility] Nicotine dependence continuous [place] NT VISIT with NATALIYA PINO-Phi 02/04/2020 Last Documented On 0 9:34AM ; [facility] No Smoking Cessation NEW PATIENT VISIT w ith NATALIYA PINO-C 02/04/2020 Last Documented On 0 9:34AM ; [facility] Instructions Includes: Instructions for all patient encounters Instructions to patient Intervention and counseling on cessation of tobacco use Last Documented On 4 1:04PM ; [facility] Intervention and counseling on cessation of tobacco use Last Documented On 2 10:07AM ; [facility] Lose weight Last Documented On 2 5:56PM ; [facility] Intervention and counseling on cessation of tobacco use Last Documented On 1 2:45PM ; [facility] Smoking cessation Last Documented On 0 9:25AM ; [facility] Intervention and counseling on cessation of tobacco use Last Documented On 0 8:08AM ; [facility] Lose weight your BMI is 29.5 ~A BMI of less than 18.5 kg/m2 indicates you are underweight. You may need to gain weight. ~If your BMI is 19 to 24.9 kg/m2, you're are a healthy weight, and should aim to stay that way. ~A BMI of 25 to 29 kg/m2 is defined as overweight. It's a good idea to lose some weight for your health's sake, or at least aim to prevent further weight gain. ~A BMI of over 30 kg/m2 is defined as obese and means your health is at risk. Losing weight will improve your health. ~ Last Documented On 0 9:29AM ; [facility] Medical Equipment - Implanted Devices Includes: Current and historical Devices No Medical Equipment Recorded Medications Includes: Current and historical Medications Current Medications (continue as prescribed) Albuterol Sulfate HFA 108 (90 Base) MCG/ACT Inhalation Aerosol Solution 01/28/2024 Provider: NATALIYA MEZA Diagnosis: Anxiety disorder , unspecified 2 puff q 4 hours prn Last Documented On 01/28/2024 3:45PM By Diogenes RÍOS ; [facility] traMADol HCl 50 MG Oral Tablet 01/27/2024 Provider: NATALIIA Colunga Diagnosis: Myalgia, unspeci fied site One tablet at bed time Last Documented On 4 1:30PM By Nataliia Bhat PA-C ; [facility] Xanax 0.25 MG Oral Tablet 01/16/2024 Provider: NATALIYA MEZA Diagnosis: Anxiety disorder , unspecified One tablet three times a day Last Documented On 4 12:41PM By Nataliya MEZA ; [facility] Pregabalin 150 MG Oral Capsule 01/16/2024 Provider: NATALIYA MEZA Diagnosis: Myalgia, unspeci fied site once daily Last Documented On 4 12:41PM By Nataliya MEZA ; [facility] Trelegy Ellipta 100-62.5-25 MCG/ACT Inhalation Aerosol Powder Breath Activated 10/13/2023 Provider: NATALIYA MEZA Diagnosis: Chronic obstruct james pulmonary disease w (acute) exacerbation 1 puff daily Last Documented On 4 4:03PM By Nataliya MEZA ; [facility] guaiFENesin ER 600 MG Oral Tablet Extended Release 12 Hour 05/12/2023 Provider: NATALIYA MEZA Diagnosis: Chronic obstruct james pulmonary disease w (acute) exacerbation One tablet twice a day Last Documented On 3 2:08PM By Nataliya MEZA ; [facility] hydroCHLOROthiazide 25 MG Oral Tablet 05/05/2023 Provider: NATALIYA MEZA Diagnosis: Essential (prima ry) hypertension One tablet daily Last Documented On 3 11:14AM By Natlaiya MEZA ; [facility] PARoxetine HCl 20 MG Oral Tablet 05/01/2023 Provider: NATALIYA MEZA Diagnosis: Adjustment disor jose guadalupe with mixed anxiety and depressed mood One tablet daily Last Documented On 3 8:34AM By Nataliya MEZA ; [facility] Lisinopril 5 MG Oral Tablet 05/01/2023 Provider: NATALIYA MEZA Diagnosis: Essential (prima ry) hypertension One tablet daily Last Documented On 3 8:34AM By Nataliya MEZA ; [facility] Aspirin Adult Low Dose 81 MG Oral Tablet Delayed Relea se 08/21/2021 Provider: Diagnosis: Last Documented On 08/21/2021 2:45PM By Anabella RÍOS ; [facility] Past Medications on file traMADol HCl 50 MG Oral Tablet 12/31/2023 - 01/27/2024 Provider: NATALIYA MEZA Diagnosis: Myalgia, unspeci fied site One tablet at bed time Last Documented On 4 1:28PM By Nataliia Bhat PA-C ; [facility] Pregabalin 150 MG Oral Capsule 12/19/2023 - 01/16/2024 Provider: NATALIIA BHAT PA-C Diagnosis: Myalgia, unspeci fied site once daily Last Documented On 4 12:29PM By Nataliya MEZA ; [facility] traMADol HCl 50 MG Oral Tablet 12/03/2023 - 12/31/2023 Provider: NATALIYA MEZA Diagnosis: Myalgia, unspeci fied site One tablet at bed time Last Documented On 4 7:43PM By Nataliya MEZA ; [facility] traMADol HCl 50 MG Oral Tablet 11/03/2023 - 12/03/2023 Provider: NATALIYA MEZA Diagnosis: Myalgia, unspeci fied site One tablet at bed time Last Documented On 4 12:57PM By Nataliya MEZA ; [facility] Xanax 0.25 MG Oral Tablet 10/22/2023 - 01/16/2024 Provider: NATALIYA MEZA Diagnosis: Anxiety disorder , unspecified One tablet three times a day Last Documented On 4 12:29PM By Nataliya MEZA ; [facility] Pregabalin 150 MG Oral Capsule 10/21/2023 - 12/19/2023 Provider: NATALIYA MEZA Diagnosis: Myalgia, unspeci fied site once daily Last Documented On 4 11:45AM By Nataliia Bhat PA-C ; [facility] Pregabalin 150 MG Oral Capsule 09/22/2023 - 10/21/2023 Provider: NATALIYA MEZA Diagnosis: Myalgia, unspeci fied site once daily Last Documented On 4 6:03PM By Nataliya MEZA ; [facility] Pregabalin 150 MG Oral Capsule 08/25/2023 - 09/22/2023 Provider: NATALIYA MEZA Diagnosis: Myalgia, unspeci fied site once daily Last Documented On 4 5:23PM By Nataliya MEZA ; [facility] Albuterol Sulfate HFA 108 (90 Base) MCG/ACT Inhalation Aerosol Solution 07/23/2023 - 01/28/2024 Provider: NATALIYA GUO WATCHMAKER APPRENTICE-C Diagnosis: Anxiety disorder , unspecified 2 puff q 4 hours prn Last Documented On 01/28/2024 3:30PM By Diogenes RÍOS ; [facility] Xanax 0.25 MG Oral Tablet 07/22/2023 - 10/22/2023 Provider: NATALIYA MEZA Diagnosis: Anxiety disorder , unspecified One tablet three times a day Last Documented On 4 11:48AM By Nataliya MEZA ; [facility] Pregabalin 150 MG Oral Capsule 07/22/2023 - 08/25/2023 Provider: NATALIYA MEZA Diagnosis: Myalgia, unspeci fied site once daily Last Documented On 4 2:14PM By Nataliya MEZA ; [facility] Pregabalin 150 MG Oral Capsule 06/12/2023 - 07/22/2023 Provider: NATALIYA MEZA Diagnosis: Myalgia, unspeci fied site once daily Last Documented On 3 10:57AM By Nataliya MEZA ; [facility] traMADol HCl 50 MG Oral Tablet 06/12/2023 - 11/03/2023 Provider: NATALIYA MEZA Diagnosis: Myalgia, unspeci fied site One tablet at bed time Last Documented On 4 1:17PM By Nataliya MEZA ; [facility] traMADol HCl 50 MG Oral Tablet 05/13/2023 - 06/12/2023 Provider: NATALIYA MEZA Diagnosis: Myalgia, unspeci fied site One tablet at bed time Last Documented On 3 1:25PM By Nataliya MEZA ; [facility] Bactrim DS 800-160 MG Oral Tablet 05/12/2023 - 11/03/2023 Provider: NATALIYA MEZA Diagnosis: Oth disorders of skin, subcu in diseases classd elswhr One tablet twice a day Last Documented On 11/03/2023 1:00PM By Diogenes RÍOS ; [facility] Metoprolol Succinate ER 50 MG Oral Tablet Extended Release 24 Hour 05/01/2023 - 05/12/2023 Provider: NATALIYA MEZA Diagnosis: One tablet daily Last Documented On 3 1:35PM By Nataliya MEZA ; [facility] hydrALAZINE HCl 25 MG Oral Tablet 05/01/2023 - 05/12/2023 Provider: NATALIYA MEZA Diagnosis: Essential (prima ry) hypertension One tablet three times a day Last Documented On 3 1:35PM By Nataliya MEZA ; [facility] Pregabalin 150 MG Oral Capsule 05/01/2023 - 06/12/2023 Provider: NATALIYA MEZA Diagnosis: Myalgia, unspeci fied site once daily Last Documented On 3 1:26PM By Nataliya MEZA ; [facility] Xanax 0.25 MG Oral Tablet 05/01/2023 - 07/22/2023 Provider: NATALIYA MEZA Diagnosis: Anxiety disorder , unspecified One tablet three times a day Last Documented On 3 10:58AM By Nataliya MEZA ; [facility] Pregabalin 150 MG Oral Capsule 04/25/2023 - 05/01/2023 Provider: NATALIYA MEZA Diagnosis: Myalgia, unspeci fied site once daily Last Documented On 3 8:25AM By Nataliya MEZA ; [facility] Pregabalin 150 MG Oral Capsule 03/25/2023 - 04/25/2023 Provider: NATALIYA MEZA Diagnosis: Myalgia, unspeci fied site once daily Last Documented On 3 9:00AM By Nataliya MEZA ; [facility] Trelegy Ellipta 100-62.5-25 MCG/ACT Inhalation Aerosol Powder Breath Activated 03/13/2023 - 10/13/2023 Provider: NATALIYA MEZA Diagnosis: Chronic obstruct james pulmonary disease w (acute) exacerbation 1 puff daily Last Documented On 4 3:47PM By Nataliya MEZA ; [facility] Albuterol Sulfate HFA 108 (90 Base) MCG/ACT Inhalation Aerosol Solution 01/14/2023 - 07/23/2023 Provider: NATALIYA MEZA Diagnosis: Anxiety disorder , unspecified 2 puff q 4 hours prn Last Documented On 3 12:24PM By Nataliya MEZA ; [facility] Pregabalin 75 MG Oral Capsule 12/24/2022 - 04/24/2023 Provider: NATALIYA MEZA Diagnosis: Myalgia of auxiliary muscles, head and neck One tablet twice a day Last Documented On 04/24/2023 4:43PM By Diogenes RÍOS ; [facility] Metoprolol Succinate ER 50 MG Oral Tablet Extended Release 24 Hour 12/16/2022 - 05/01/2023 Provider: NATALIYA MEZA Diagnosis: One tablet daily Last Documented On 3 8:23AM By Nataliya MEZA ; [facility] Xanax 0.25 MG Oral Tablet 11/25/2022 - 05/01/2023 Provider: NATALIYA MEZA Diagnosis: Anxiety disorder , unspecified One tablet three times a day Last Documented On 3 8:24AM By Nataliya MEZA ; [facility] Xanax 0.25 MG Oral Tablet 10/28/2022 - 11/25/2022 Provider: NATALIYA MEZA Diagnosis: Anxiety disorder , unspecified One tablet three times a day Last Documented On 3 2:53PM By Nataliya MEZA ; [facility] PARoxetine HCl 20 MG Oral Tablet 10/25/2022 - 05/01/2023 Provider: NATALIYA MEZA Diagnosis: Adjustment disor jose guadalupe with mixed anxiety and depressed mood One tablet daily Last Documented On 3 8:21AM By Nataliya MEZA ; [facility] Lisinopril 5 MG Oral Tablet 10/25/2022 - 05/01/2023 Provider: NATALIYA MEZA Diagnosis: Essential (prima ry) hypertension One tablet daily Last Documented On 3 8:22AM By Nataliya MEZA ; [facility] hydroCHLOROthiazide 25 MG Oral Tablet 10/25/2022 - 05/05/2023 Provider: NATALIYA MEZA Diagnosis: Essential (prima ry) hypertension One tablet daily Last Documented On 3 11:09AM By Nataliya MEZA ; [facility] hydrALAZINE HCl 25 MG Oral Tablet 10/25/2022 - 05/01/2023 Provider: NATALIYA MEZA Diagnosis: Essential (prima ry) hypertension One tablet three times a day Last Documented On 3 8:22AM By Nataliya MEZA ; [facility] Xanax 0.25 MG Oral Tablet 08/16/2022 - 10/28/2022 Provider: NATALIYA MEZA Diagnosis: Anxiety disorder , unspecified One tablet three times a day Last Documented On 3 8:21AM By Nataliya GIVENSP-C ; [facility] Pregabalin 75 MG Oral Capsule 08/16/2022 - 12/24/2022 Provider: NATALIYA GIVENSP-C Diagnosis: Myalgia of auxiliary muscles, head and neck One tablet twice a day Last Documented On 3 1:04PM By Nataliya GIVENSP-C ; [facility] Gabapentin 300 MG Oral Capsule 06/04/2022 - 10/23/2022 Provider: NATALIYA NELSON WATCHMAKER APPRENTICE-C Diagnosis: One tablet twice a day Last Documented On 10/23/2022 10:08AM By Diogenes RÍOS ; [facility] Xanax 0.25 MG Oral Tablet 05/16/2022 - 08/16/2022 Provider: NATALIYA GIVENSP-C Diagnosis: Anxiety disorder , unspecified One tablet three times a day Last Documented On 2 5:02PM By Nataliya GIVENSP-C ; [facility] PARoxetine HCl 20 MG Oral Tablet 04/24/2022 - 10/25/2022 Provider: NATALIYA GIVENSP-C Diagnosis: Adjustment disor jose guadalupe with mixed anxiety and depressed mood One tablet daily Last Documented On 10/25/2022 2:01PM By Diogenes RÍOS ; [facility] Lisinopril 5 MG Oral Tablet 04/24/2022 - 10/25/2022 Provider: NATALIYA GUO WATCHMAKER APPRENTICE-C Diagnosis: Essential (prima ry) hypertension One tablet daily Last Documented On 10/25/2022 2:01PM By Diogenes RÍOS ; [facility] Pregabalin 75 MG Oral Capsule 04/24/2022 - 08/16/2022 Provider: NATALIYA GIVENSP-C Diagnosis: Myalgia of auxiliary muscles, head and neck One tablet twice a day Last Documented On 2 5:03PM By Nataliya PINO-C ; [facility] Pregabalin 75 MG Oral Capsule 03/26/2022 - 04/24/2022 Provider: NATALIYA PINO-Phi Diagnosis: Myalgia of auxiliary muscles, head and neck One tablet twice a day Last Documented On 2 9:14PM By Nataliya PINO-Phi ; [facility] Incruse Ellipta 62.5 MCG/INH Inhalation Aerosol Powder Breath Activated 03/06/2022 - 02/21/2022 Provider: Diagnosis: Chronic obstruct james pulmonary disease w (acute) exacerbation 2 puffs inhaled bid Last Documented On 03/06/2022 4:32PM By Diogenes RÍOS ; [facility] Incruse Ellipta 62.5 MCG/INH Inhalation Aerosol Powder Breath Activated 03/06/2022 - 05/12/2023 Provider: NATALIYA GIVENSP-C Diagnosis: Chronic obstruct james pulmonary disease w (acute) exacerbation as directed 2 puffs inhaled bid Last Documented On 05/12/2023 1:25PM By Leyla RÍOS ; [facility] Pregabalin 75 MG Oral Capsule 02/21/2022 - 03/26/2022 Provider: NATALIYA GIVENSP-C Diagnosis: Myalgia of auxiliary muscles, head and neck One tablet twice a day Last Documented On 2 12:14PM By Nataliya PINO-Phi ; [facility] Xanax 0.25 MG Oral Tablet 02/21/2022 - 05/16/2022 Provider: NATALIYA GUO WATCHMAKER APPRENTICE-C Diagnosis: Anxiety disorder , unspecified One tablet three times a day Last Documented On 2 1:25PM By Nataliya MEZA ; [facility] Xanax 0.25 MG Oral Tablet 11/05/2021 - 02/21/2022 Provider: NATALIYA NELSON WATCHMAKER APPRENTICE-C Diagnosis: One tablet three times a day Last Documented On 2 11:13AM By Nataliya PINO-C ; [facility] Gabapentin 300 MG Oral Capsule 08/22/2021 - 02/21/2022 Provider: NATALIYA MEZA Diagnosis: Other signs and symptoms in breast One tablet twice a day Last Documented On 2 10:30AM By Nataliya PINO-Phi ; [facility] Cyclobenzaprine HCl 5 MG Oral Tablet 08/22/2021 - 02/21/2022 Provider: NATALIYA PINO-Phi Diagnosis: Myalgia of auxiliary muscles, head and neck One tablet three times a day Last Documented On 2 10:25AM By Nataliya MEZA ; [facility] PARoxetine HCl 20 MG Oral Tablet 08/21/2021 - 04/24/2022 Provider: NATALIYA MEZA Diagnosis: Adjustment disor jose guadalupe with mixed anxiety and depressed mood One tablet daily Last Documented On 04/24/2022 4:44PM By Diogenes RÍOS ; [facility] Xanax 0.25 MG Oral Tablet 08/21/2021 - 11/05/2021 Provider: NATALIYA PINO-Phi Diagnosis: One tablet three times a day Last Documented On 2 8:13AM By Nataliya MEZA ; [facility] hydrALAZINE HCl 25 MG Oral Tablet 08/21/2021 - 10/25/2022 Provider: NATALIYA PINO-Phi Diagnosis: Essential (prima ry) hypertension One tablet three times a day Last Documented On 10/25/2022 2:02PM By Diogenes RÍOS ; [facility] hydroCHLOROthiazide 25 MG Oral Tablet 08/21/2021 - 10/25/2022 Provider: NATALIYA PINO-C Diagnosis: Essential (prima ry) hypertension One tablet daily Last Documented On 3 2:11PM By Natailya MEZA ; [facility] Lisinopril 5 MG Oral Tablet 08/21/2021 - 04/24/2022 Provider: NATALIYA MEZA Diagnosis: Essential (prima ry) hypertension One tablet daily Last Documented On 04/24/2022 4:44PM By Diogenes RÍOS ; [facility] Lisinopril 20 MG Oral Tablet 08/21/2021 - 02/21/2022 Provider: NATALIYA MEZA Diagnosis: Essential (prima ry) hypertension One tablet daily Last Documented On 2 10:25AM By Nataliya MEZA ; [facility] Metoprolol Succinate ER 50 MG Oral Tablet Extended Release 24 Hour 08/21/2021 - 12/16/2022 Provider: NATALIYA MEZA Diagnosis: One tablet daily Last Documented On 3 2:53PM By Nataliia Bhat PA-C ; [facility] Bevespi Aerosphere 9-4.8 MCG/ACT Inhalation Aerosol 08/21/2021 - 03/06/2022 Provider: NATALIYA MEZA Diagnosis: Chronic obstruct james pulmonary disease w (acute) exacerbation 2 puffs inhaled bid Last Documented On 03/06/2022 4:32PM By Diogenes RÍOS ; [facility] hydrALAZINE HCl 25 MG Oral Tablet 02/23/2021 - 08/21/2021 Provider: LINETTE PALAFOX MD Diagnosis: Essential (prima ry) hypertension One tablet three times a day Last Documented On 2 3:46PM By Nataliya MEZA ; [facility] Xanax 0.25 MG Oral Tablet 02/23/2021 - 08/21/2021 Provider: LINETTE PALAFOX MD Diagnosis: Anxiety disorder , unspecified One tablet three times a day Last Documented On 2 3:46PM By Nataliya MEZA ; [facility] Albuterol Sulfate HFA 108 (90 Base) MCG/ACT Inhalation Aerosol Solution 02/23/2021 - 01/14/2023 Provider: LINETTE PALAFOX MD Diagnosis: Anxiety disorder , unspecified 2 puff q 4 hours prn Last Documented On 3 12:35PM By Nataliya MEZA ; [facility] Xanax 0.25 MG Oral Tablet 02/03/2021 - 02/23/2021 Prov ider: LINETTE PALAFOX MD Diagnosis: One tablet at bed time Last Documented On 02/23/2021 3:36PM By LINETTE PALAFOX MD ; [facility] Xanax 0.25 MG Oral Tablet 02/03/2021 - 02/03/2021 Prov ider: LINETTE PALAFOX MD Diagnosis: One tablet at bed time Last Documented On 02/03/2021 2:10PM By LINETTE PALAFOX MD ; [facility] Albuterol Sulfate HFA 108 (90 Base) MCG/ACT Inhalation Aerosol Solution 02/01/2021 - 02/23/2021 Provider: LINETTE PALAFOX MD Diagnosis: Anxiety disorder , unspecified 2 puff q 4 hours prn Last Documented On 02/23/2021 3:35PM By LINETTE PALAFOX MD ; [facility] Xanax 0.25 MG Oral Tablet 02/01/2021 - 07/20/2021 Provider: LINETTE PALAFOX MD Diagnosis: Anxiety disorder , unspecified One tablet three times a day Last Documented On 1 11:51AM By JAYLENE RÍOS ; [facility] Albuterol Sulfate 108 (90 Ba se) MCG/ACT Inhalation Aerosol Powder Breath Activated 02/01/2021 - 07/20/2021 Provider: Diagnosis: 2 PUFFS PRN Last Documented On 1 11:51AM By JAYLENE RÍOS ; [facility] hydroCHLOROthiazide 25 MG Or al Tablet 12/06/2020 - 08/21/2021 Provider: LINETTE PALAFOX MD Diagnosis: One tablet daily Last Documented On 2 3:46PM By Nataliya MEZA ; [facility] hydroCHLOROthiazide 25 MG Oral Tablet 12/05/2020 - Provider: Diagnosis: Last Documented On 12/06/2020 9:33AM By LINETTE PALAFOX MD ; [facility] hydroCHLOROthiazide 25 MG Oral Tablet 12/05/2020 - Provider: Diagnosis: Last Documented On 12/05/2020 6:08PM By Miladis RÍOS ; [facility] Xanax 0.5 MG Oral Tablet 10/26/2020 - 08/21/2021 Provider: LINETTE Doll MD Diagnosis: Adjustment disor jose guadalupe with mixed anxiety and depressed mood One tablet three times a day Last Documented On 08/21/2021 2:44PM By Anabella RÍOS ; [facility] Xanax 0.5 MG Oral Tablet 10/25/2020 - 10/26/2020 Provider: LINETTE Doll MD Diagnosis: Adjustment disor jose guadalupe with mixed anxiety and depressed mood 1 every 6 hours as needed Last Documented On 10/26/2020 4:03PM By LINETTE PALAFOX MD ; [facility] hydrALAZINE HCl 25 MG Oral Tablet 10/25/2020 - 02/23/2021 Provider: LINETTE PALAFOX MD Diagnosis: Essential (prima ry) hypertension One tablet three times a day Last Documented On 02/23/2021 3:36PM By LINETTE PALAFOX MD ; [facility] Trelegy Ellipta 100-62.5-25 MCG/INH Inhalation Aerosol Powder Breath Activated 09/21/2020 - 12/20/2020 Provider: LINETTE PALAFOX MD Diagnosis: Chronic obstruct james pulmonary disease w (acute) exacerbation INHALE 1 PUFF BY MOUTH ONCE DAILY AT BEDTIME Last Documented On 09/21/2020 2:34PM By Miladis RÍOS ; [facility] Metoprolol Succinate ER 50 M G Oral Tablet Extended Release 24 Hour 09/20/2020 - 08/21/2021 Provider: LINETTE Doll MD Diagnosis: One tablet daily Last Documented On 3:46PM By Nataliya MEZA ; [facility] Anoro Ellipta 62.5-25 MCG/IN H Inhalation Aerosol Powder Breath Activated 09/20/2020 - 08/21/2021 Provider: LINETTE Doll MD Diagnosis: use inhalation at bedtime Last Documented On 08/21/2021 2:43PM By Anabella RÍOS ; [facility] Anoro Ellipta 62.5-25 MCG/IN H Inhalation Aerosol Powder Breath Activated 08/27/2020 - 09/20/2020 Provider: LINETTE Doll MD Diagnosis: use inhalation at bedtime Last Documented On 09/20/2020 9:18AM By Miladis RÍOS ; [facility] Metoprolol Succinate ER 50 M G Oral Tablet Extended Release 24 Hour 08/24/2020 - 09/20/2020 Provider: LINETTE Doll MD Diagnosis: One tablet daily Last Documented On 09/20/2020 9:17AM By Miladis RÍOS ; [facility] PARoxetine HCl 20 MG Oral Tablet 07/24/2020 - 08/21/2021 Provider: LINETTE PALAFOX MD Diagnosis: Adjustment disor jose guadalupe with mixed anxiety and depressed mood One tablet daily Last Documented On 2 3:46PM By Nataliya MEZA ; [facility] Lisinopril 20 MG Oral Tablet 07/24/2020 - 08/21/2021 Provider: LINETTE PALAFOX MD Diagnosis: Essential (prima ry) hypertension One tablet daily Last Documented On 2 3:46PM By Nataliya MEZA ; [facility] Spiriva Respimat 2.5 MCG/ACT Inhalation Aerosol Solution 07/24/2020 - 08/21/2021 Provider: LINETTE PALAFOX MD Diagnosis: Chronic obstruct james pulmonary disease w (acute) exacerbation 1 puff daily Last Documented On 2 3:29PM By Nataliya MEZA ; [facility] Lomotil 2.5-0.025 MG Oral Tablet 07/24/2020 - 08/21/2021 Provider: LINETTE PALAFOX MD Diagnosis: Diarrhea, unspec ified Take one four times a day as needed Last Documented On 2 3:33PM By Nataliya MEZA ; [facility] PARoxetine HCl 10 MG Oral Tablet 07/20/2020 - 08/21/2021 Provider: LINETTE PALAFOX MD Diagnosis: Adjustment disor jose guadalupe with mixed anxiety and depressed mood One tablet daily Last Documented On 08/21/2021 2:44PM By Anabella RÍOS ; [facility] Chantix 1 MG Oral Tablet 06/28/2020 - 07/20/2021 Provi jose guadalupe: LINETTE PALAFOX MD Diagnosis: One tablet twice a day Last Documented On 1 11:51AM By JAYLENE RÍOS ; [facility] Chantix Starting Month David 0 .5 MG X 11 & 1 MG X 42 Oral Tablet 06/28/2020 - 09/26/2020 Provider: LINETTE Doll MD Diagnosis: as directed by package Last Documented On 1 10:26AM By JAYLENE RÍOS ; [facility] Xanax 0.5 MG Oral Tablet 06/28/2020 - 10/25/2020 Provi jose guadalupe: LINETTE PALAFOX MD Diagnosis: 1 every 6 hours as needed Last Documented On 10/25/2020 5:07PM By LINETTE PALAFOX MD ; [facility] Lisinopril 5 MG Oral Tablet 06/22/2020 - 08/21/2021 Provider: LINETTE PALAFOX MD Diagnosis: Essential (prima ry) hypertension One tablet daily Last Documented On 2 3:46PM By Nataliya MEZA ; [facility] Paxil 10 MG Oral Tablet 06/22/2020 - 07/20/2020 Provider: LINETTE Doll MD Diagnosis: Adjustment disor jose guadalupe with mixed anxiety and depressed mood One tablet daily Last Documented On 07/20/2020 3:55PM By LINETTE PALAFOX MD ; [facility] Xanax 0.25 MG Oral Tablet 05/17/2020 - 02/01/2021 Provider: NATALIYA MEZA Diagnosis: Anxiety disorder , unspecified 1 every 6 hours as needed Last Documented On 02/01/2021 3:34PM By LINTETE PALAFOX MD ; [facility] busPIRone HCl 5 MG Oral Tablet 05/07/2020 - 07/24/2020 Provider: NATALIYA MEZA Diagnosis: Anxiety disorder , unspecified One tablet three times a day Last Documented On 07/24/2020 9:26AM By Miladis RÍOS ; [facility] Spiriva Respimat 2.5 MCG/ACT Inhalation Aerosol Solution 05/02/2020 - 07/24/2020 Provider: NATALIYA MEZA Diagnosis: Chronic obstruct james pulmonary disease w (acute) exacerbation 1 puff daily Last Documented On 07/24/2020 9:54AM By LINETTE PALAFOX MD ; [facility] Xanax 0.25 MG Oral Tablet 05/02/2020 - 05/17/2020 Provider: NATALIYA MEZA Diagnosis: Anxiety disorder , unspecified 1 every 6 hours as needed Last Documented On 0 9:35AM By Nataliya MEZA ; [facility] Xanax 0.25 MG Oral Tablet 03/14/2020 - 05/02/2020 Provider: NATALIYA MEZA Diagnosis: Anxiety disorder , unspecified 1 every 6 hours as needed Last Documented On 0 5:53PM By Nataliya MEZA ; [facility] Spiriva Respimat 2.5 MCG/ACT Inhalation Aerosol Solution 02/04/2020 - 05/02/2020 Provider: NATALIYA MEZA Diagnosis: Chronic obstruct james pulmonary disease w (acute) exacerbation 1 puff daily Last Documented On 0 5:54PM By Nataliya MEZA ; [facility] Medications Administered Includes: Administered Medications in patient's chart No Administered Medications Recorded Results Includes: Results from 12/11/2023 through 12/10/2024 No Results Recorded For Specified Dates History of Present Illness History of Present Illness not supported for this document type No History of Present Illness Recorded Social History Description Last Updated Consuming 5 or more drinks per day None 11/03/2023 Last Documented On 4 1:35PM ; [facility] Not recovering alcoholic 11/03/2023 Last Documented On 4 1:35PM ; [facility] Not recovering from substance abuse 10/16 Last Documented On 4 1:35PM ; [facility] Number of times used recreat ional drug/ prescription drug for nonmedical reason. None 11/03/2023 Last Documented On 4 1:35PM ; [facility] Current smoker 02/21/2022 Last Documented On 2 11:48AM ; [facility] Tobacco non-user 08/21/2021 Last Documented On 2 5:56PM ; [facility] Good exercise habits 07/23/2020 Last Documented On 0 2:26PM ; [facility] No caffeine use 07/23/2020 Last Documented On 0 2:26PM ; [facility] No family problems 07/23/2020 Last Documented On 0 2:26PM ; [facility] No interpersonal problems 07/23/2020 Last Documented On 0 2:26PM ; [facility] No job change 07/23/2020 Last Documented On 0 2:26PM ; [facility] No physical disability 07/23/2020 Last Documented On 0 2:26PM ; [facility] No recent financial changes 07/23/2020 Last Documented On 0 2:26PM ; [facility] No recent legal problems 07/23/2020 Last Documented On 0 2:26PM ; [facility] No work-related circumstances 07/23/2020 Last Documented On 0 2:26PM ; [facility] Not using alcohol 07/23/2020 Last Documented On 0 2:26PM ; [facility] Not using drugs 07/23/2020 Last Documented On 0 2:26PM ; [facility] Smoker smokes 3 cig/day 06/22/2020 Last Documented On 0 2:26PM ; [facility] Cigarette smoking 02/04/2020 Last Documented On 0 9:34AM ; [facility] Current every day smoker 02/04/2020 Last Documented On 0 9:34AM ; [facility] Current smoker for 35 years 02/04/2020 Last Documented On 0 9:34AM ; [facility] Moderate cigarette smoker 02/04/2020 Last Documented On 0 9:34AM ; [facility] Smoking Status Unknown Medical History Includes: Medical History in patient's chart Description Last Updated Surgery 1979--child ~1994-- c/s Last Documented On 0 9:34AM ; [facility] Family History Includes: Family History in patient's chart No Family History Recorded Review of Systems Review of Systems not supported for this document type No Review of Systems Recorded Mental Status No Mental Status Recorded Functional Status No Functional Status Recorded Physical Exam Physical Exam not supported for this document type No Physical Exam Recorded Immunizations Includes: Immunizations in patient's chart Vaccine Dose # Date Site Reaction(s) Status Source Prevnar (PCV13) 1 05/22/2020 Complete (Rep orted) Patient Last Documented On 1 12:40PM ; [facility] Allergies Includes: Active, inactive, and resolved Allergies No Known Allergies Encounters Includes: Encounters from 12/11/2023 through 12/10/2024 Encounter Provider Location Date Check-In Time Check-Out Time Diagnosis RX ISSUE/REFILL NATALIYA GIVENSP-C 4 11/03/2023 3:30PM 11/03/2023 11:59PM Insurance Includes: Active Insurance Policies Plan Name Member ID Group # Subscriber Relationship Effect james Dates 1 - [employer]/ MEDICARE GOLD CHOICE PLAN-A [id number] SIA Ching 2 - MEDICAID [place] MEDICARE SECOND [id number] SIA Ching Clinical Notes Includes: Signed Clinical Notes starting from 09/06/2022 No Clinical Notes Recorded
--- OUTSIDE RECORDS SUMMARY | 2024-12-10 14:46 | XMS_ITS | Referral Summary ---
Author Organization [facility] [address] Address [address] [place] [address] Care Team Providers Care Hvac Refrigeration Technician Name Role Phone Celia Dale MD Unavailable [phone] Keo Garcia MD Unavailable [phone] Aurelia Hernandez MD PhD Unavaila ble Franki Mckeon MD Unavailable Roberta Daley MD Unavailable [phone] Armen Dupree MD Unavailable Roz Nicholas LANDRY [...] neoplasm 03/13/2023 Personal history of irradiation 03/13/2023 skilled nursing current use of aromatase inhibitor Cervical spinal [...] from 03/13/2020:Stage IIA(cT2, cN0, cM0, G2, ER+, MI-, HER2-) - Signed by Kalani Andino MD on 04/07/2020 Malignant neoplasm of upper- outer quadrant of left breast in female, estrogen receptor positive 03/12/2020 Cancer Staging:Clinical stage from 03/15/2020:Stage IA(cT1c, cN0, cM0, G2, ER+, MI+, HER2-) - Signed by Kalani Andino MD [...] PCV 13 05/22/2020 Pneumococcal Polysaccharide PPV23 05/23/2021 Social History Tobacco Use Types Packs/Day Years [...] on file Legal Sex Female 9:00 AM CANE WEIGHER Gender Identity Not on file Sexual Orientation [...] 05/09/2024 1:30 PM CDT Plan of Treatment Not on file Medical Devices Implanted Type Area House Carpenter Helper Device Identifier Shelf Expiration Date Model / Serial / Lot Medtronic Sofamor Danek [id number] Centerpiece 10mm Lateral Hole Open Door Color Coded Spine - [id number] Implanted:Qty: 3 on 06/15/2021 by Washington Vinson MD at [facility] Plate N/A: Spine Cervical Medtronic Inc [id number] / / Medtronic Sofamor Danek [id number] Centerpiece 2.6mm 5mm Self Tap Stab Grab Color Coded Spine Screw - [id number] Implanted:Qty: 6 on 06/15/2021 by Washington Vinson MD at [facility] Screw N/A: Spine Cervical Medtronic Inc [id number] / / Medtronic Sofamor Danek [id number] Centerpiece 2.6mm 7mm Self Tap Stab Grab Color Coded Spine Screw - [id number] Implanted:Qty: 6 on 06/15/2021 by Washington Vinson MD at [facility] Screw N/A: Spine Cervical Medtronic Inc [id number] / / [employer] [id number] Powerport Clearvue Isp 8 Float Point Unit Siom Intermediate - [id number] Implanted:Qty: 1 on 05/31/2020 by Stephenie Turcios MD at [facility] Explanted:06/08 (Quantity not on file) Left: Subclavian [employer] Access Systems 06/17/2021 [id number] / / [id number] Explanted Type Area House Carpenter Helper Device Identifier Shelf Expiration Date Model / Serial / Lot Medtronic Displairlloyd [id number] Centerpiece 2.6mm 7mm Self Tap Stab Grab Color Coded Spine Screw - [id number] Explanted:Qty: 2 on 06/15/2021 at [facility] Screw N/A: Spine Cervical Medtronic Inc [id number] / / Procedures Procedure Name Priority Date/Time Associated Diagnosis Comments DEXA AXIAL SKELETON BONE DENSITY 1 OR MORE SITES Schedule Routine, Read Routine (OP Routine) 06/30/2023 12:53 PM CANE WEIGHER Malignant neoplasm of upper-outer quadrant of left breast in female, estrogen receptor positive (HCC) Malignant neoplasm of lower-outer quadrant of right breast of female, estrogen receptor positive (HCC) 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 (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) use of aromatase inhibitors HEPATITIS PANEL, ACUTE Routine 08/14/2020 12:47 PM CANE WEIGHER Elevated LFTs from Last 3 Months or Most Recently Relevant to Health Maintenance Results * Dexa Axial Skeleton Bone Density 1 or 2 Site (06/30/2023 12:53 PM CANE WEIGHER) Anatomical Region Laterality Modality Body N/A Other 06/30/2023 11:3 3 PM CANE WEIGHER Narrative 06/30/2023 11:34 PM CANE WEIGHER EXAM DESCRIPTION: DEXA AXIAL SKELETON BONE DENSITY 1 OR MORE SITES REASON FOR STUDY: 62 y/o year old F with given history of: Patient with breast cancer and on AI screening postmenopausal House Carpenter Helper/Model: FuelMyBlog (S/N [id number]) CLINICAL INFORMATION: Current height: 59.7 inches Maximum [...] Norris Perez M.D. MF: KELLY Report ID: [id number] Reading Location: [id number] Procedure Note Norris Perez MD - 06/30/2023 EXAM DESCRIPTION: DEXA AXIAL SKELETON BONE DENSITY 1 OR MORE SITES REASON FOR STUDY: 62 y/o year old F with given history of: Patientwith breast cancer and on AI screening postmenopausal House Carpenter Helper/Model: FuelMyBlog (S/N [id number]) CLINICAL INFORMATION: Current height: 59.7 inches Maximum [...] Norris Perez M.D. MF: KELLY Report ID: [id number] Reading Location: [place] [address] Armen Dupree MD [facility] DXA PROCEDURE S Final Result * Hepatitis panel, acute (08/14/2020 12:47 PM CANE WEIGHER) Hep A IgM Nonreactive Nonreactive THEO ALAS Comment: Interpretive Data: If Hep A IgM Ab is reported as Equivocal, a new sample should be drawn in two weeks for testing. Current interpretive data was last revised on 19. Hep B core IgM Nonreactive Nonreactive THEO ALAS Comment: Interpretive Data If HepB Core IgM Ab is reported as Equivocal, a new sample should be drawn in two weeks for testing. Current interpretive data was last revised on 19. Hep C Ab Nonreactive Nonreactive THEO Comment: Interpretive Data Nonreactive: Antibodies to HCV [...] revised on 2019. HepBsAg Nonreactive Nonreactive THEO Blood specimen (specimen) 08/14/2020 12:47 PM CANE WEIGHER 08/14/2020 1:54 PM CANE WEIGHER Raghav Ackerman MD LAB MICROBIOLOGY - GENERAL ORDERABLES Final Result [facility] [id number] [address] Department [place] [address] from Last 3 Months or Most Recently Relevant to Health Maintenance Insurance [facility] MEDICARE HMO Member Subscriber Plan / Payer (Ef fective 2023-Present) Name:Leia Pepper Relation to Subscriber:Self Name:Leia Pepper Payer ID:[id number] (NAIC) Type:MEDICARE RISK OTHER Address: [address] [facility] MEDICARE [facility] Address: [address] [address] [place] [address] [employer] MEDICARE HMO Advance Directives For more information, please contact: [phone] * Full Code (Latest Code Status on [...] Agents on File Name Relationship Healthcare Agent Relationshi p Communication Casey Manjarrez Health Care Agent Care Teams Hvac Refrigeration Technician Relationship Specialty Start Date End Date Nataliia Bhat PA [address] [place] [address] PCP - General Physician Equity Research Analyst 05/09/24 Celia Dale MD [address] [facility] [place] [address] Radiation Oncologist Radiation Oncology 09/05/20 Keo Garcia MD [address] [facility] [place] [address] Surgeon Trauma Surgery 10/24/20 Aurelia Hernandez MD PhD [address] [facility] [place] [address] Surgeon Surgical Oncology 12/26/20 Franki Mckeon MD [address] [facility] [place] [address] Resident Neurosurgery 05/23/21 Roberta Daley MD [address] [facility] DIV SURG ONCOLOGY [place], [place] [id number] Consulting Physician Gastroenterology 07/04/21 Armen Dupree MD [id number] [facility], [place] [address] Consulting Physician Medical Oncology 10/23/21 Roz Nicholas COTA Occupational Therapist Occupational Therapy 04/10/23
--- OUTSIDE RECORDS SUMMARY | 2024-12-10 14:46 | XMS_ITS | Encounter Summary ---
Author Organization [facility] Healthcare Address [address] [place] [address] Care Team Providers Care Plug Saw Operator Name Role Phone Celia Dale MD Unavailable [phone] Keo Garcia MD Unavailable [phone] Aurelia Hernandez MD PhD Unavaila ble Franki Mckeon MD Unavailable [phone] Roberta Daley MD Unavailable [phone] Padma Pineda MD Primary Care Provider Armen Dupree MD Unavailable Roz Nicholas LANDRY Unavailable Unavailable Nataliia Bhat Primary Care Provider Encounter Details Date Type Department Care Team (Late st Contact Info) Description 05/15/2023 Documentation [facility] Occupational Therapy [address] [place] [address] Darshana Molina, OT [address] [place] [address] Social History Tobacco Use Types Packs/Day Years Used Date Smoking Tobacco: Former Cigarettes 0.1 50 Smokeless Tobacco: Never Alcohol Use Standard Drinks/Week [...] on file Legal Sex Female 9:00 AM 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 Gender Identity Not on file Sexual Orientation Not on file documented as of this encounter Plan of Treatment Not on file documented as of this encounter Visit Diagnoses Not on filedocumented in this encounter Care Teams Plug Saw Operator Relationship Specialty Start Date End Date Padma Pineda MD [address] [place] [address] PCP - General 10/17/21 05/08/24 Nataliia Bhat PA [address] [place] [id number] PCP - General Physician Electronic Equipment Trades Worker 05/09/24 Celia Dale MD [address] [place] [address] Radiation Oncologist Radiation Oncology 09/05/20 Keo Garcia MD [address] [place] [address] Surgeon Trauma Surgery 10/24/20 Aurelia Hernandez MD PhD [address] [facility] [place] [address] Surgeon Surgical Oncology 12/26/20 Franki Mckeon MD [address] [place] [address] Resident Neurosurgery 05/23/21 Roberta Daley MD [address] [place] [address] Consulting Physician Gastroenterology 07/04/21 Armen Dupree MD [address] [facility] [place] [address] Consulting Physician Medical Oncology 10/23/21 Roz Nicholas COTA Occupational Therapist Occupational Therapy 04/10/23 documented as of this encounter
--- OUTSIDE RECORDS SUMMARY | 2024-12-10 14:46 | XMS_ITS | Clinical Summary ---
Author Organization [email or web address] Address [address] [place] [address] Care Team Providers Care Pneumatic Jacketer Name Role Phone Unavailable Primary Care Provider Unavailabl e Source Comments [email or web address],non-owned Affiliates and Associated Physician Practices is amultiple site organization consisting of ambulatory clinics and hospital sitesin [place], [place], [place] and [place]. This disclosure is being madepursuant to the Care Everywhere program and may not contain all information available regarding this patient. Last updated 18.[email or web address] Allergies No known active allergies Medications * Be aware that medications may not be up to date on this document. Alwaysverify current medications with the patient. albuterol HFA (PROVENTIL;VENT PAT;PROAIR) 108 (90 BASE) MCG/ACT inhaler Inhale 2 puffs by mouth every 6 hours as needed for Shortness of Breath, Wheezing or Cough 1 Inhaler 8 Active Social History Tobacco Use Types Packs/Day Years Used Date Smoking Tobacco: Every Day Smokeless Tobacco: Never Comments Unknown Sex and Gender Information Value Date Recorded Sex Assigned at Not on file Legal Sex Female 10:04 AM ORDER PROCESSOR Gender Identity Not on file Sexual Orientation Not on file Last Filed Vital Signs Vital Sign Reading Time Taken Comments Blood Pressure 128/82 08/01/2018 10:37 AM ORDER PROCESSOR Pulse 95 08/01/2018 10:37 AM ORDER PROCESSOR Temperature 37.6 C (99.6 F) 08/01/2018 10:37 AM ORDER PROCESSOR Respiratory Rate - - Oxygen Saturation 95% 08/01/2018 10:37 AM ORDER PROCESSOR Inhaled Oxygen Concentration - - Weight 86.2 kg (190 lb) 08/01/2018 10:37 AM ORDER PROCESSOR Height 157.5 cm (5' 2 ) 08/01/2018 10:37 AM ORDER PROCESSOR Body Mass Index 34.75 08/01/2018 10:37 AM ORDER PROCESSOR Plan of Treatment Health Maintenance Due Date Last Done Comments BONE DENSITY TESTING 1960 COLOGUARD (AGES 45-75) - COL ON CA SCREENING 1958 COLON MONITORING 1958 COLONOSCOPY - COLON CA SCREENING 1958 CT COLONOGRAPHY - COLON CA SCREENING 1958 Colorectal Cancer Screening 1958 FIT - COLON CA SCREENING 1958 FLEX SIG - COLON CA SCREENING 1958 LIPID TESTING 1958 MAMMOGRAM 1958 HEPATITIS C SCREENING 11/05/1976 DTAP/TDAP/TD VACCINES (1 - Tdap) 1977 PNEUMOCOCCAL VACCINE 50+ (1 of 1 - PCV) 2008 ZOSTER VACCINE (1 of 2) 2008 SCREENING FOR DIABETES 08/01/2018 COVID-19 VACCINE ( - 2023-2 5 season) 2024 DEPRESSION SCREENING 08/18/2024 INFLUENZA VACCINE (Season Ended) 2025 Respiratory Syncytial Virus (RSV) Vaccine Pt: or over 60 yrs (1 - 1-dose 75+ series) 2033 HEPATITIS B VACCINE Aged Out No longe r eligible based on patient's age to complete this topic HIB VACCINE Aged Out No longer eligi ble based on patient's age to complete this topic HPV VACCINE Aged Out No longer eligi ble based on patient's age to complete this topic MENINGOCOCCAL (Group B) VACC INE SHARED DECISION-MAKING Aged Out No longer eligibl e based on patient's age to complete this topic MENINGOCOCCAL GROUPS A/C/Y/W VACCINE Aged Out No longer eligible b ased on patient's age to complete this topic Insurance MEDICAID - OUT OF STATE
[2024-12-10 14:48] VITALS: BP 130/83; PULSE 106; RESP 20; TEMP 35.5; O2SAT 94
--- OUTSIDE RECORDS SUMMARY | 2024-12-10 14:50 | XMS_ITS ---
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 NATALIYA HAYSER-LANLTZ SOCIAL WORK CASE MANAGER-C Active Last Documented On 3 2:08PM ; [facility] Skin Subcutaneous Tissue Disorders in Diseases Classified Elsewhere 05/12/2023 NATALIYA HAYSER-HULT Z SOCIAL WORK CASE MANAGER-C Active Last Documented On 3 2:08PM ; [facility] Myalgia and Myositis 02/21/2022 NATALIYA HERBERTINGER-HULTZ SOCIAL WORK CASE MANAGER-C Active Last Documented On 2 11:38AM ; [facility] Anxiety Disorder Nos 03/25/2021 LINETTE WILLIS MD Active Last Documented On 1 12:23PM ; [facility] Essential Hypertension Malignant 03/25/2021 NAWAF PALAFOX MD Active Last Documented On 1 12:23PM ; [facility] Adjustment Disorder with Anx iety and Depressed Mood 10/25/2020 LINETTE PALAFOX MD Active Last Documented On 1 5:14PM ; [facility] Anxiety disorder, unspecified 02/04/2020 BINH HAYSER-LANLTZ SOCIAL WORK CASE MANAGER-C Active Last Documented On 0 8:56AM ; [facility] Chronic Obstructive Pulmonar y Disease with Exacerbation 02/04/2020 LINETTE PALAFOX MD Active Last Documented On 1 5:14PM ; [facility] Breast Complaints 02/04/2020 NATALIYA Triplett SALAS GIVENSP-Phi Active Last Documented On 2 5:47PM ; [facility] Plan of Treatment Findings Encounter Date Ordered follow-up visit 3 month CHECK UP with ADIS PALAFOX MD 02/23/2021 Last Documented On 1 12:24PM ; [facility] Ordered return to the clinic if condition worsens or new symptoms arise CHECK UP with LINETTE PALAFOX MD 02/23/2021 Last Documented On 1 12:24PM ; [facility] PLAN [Use for s.o.a.p. note free text] CHECK UP with LINETTE PALAFOX MD 02/23/2021 Last Documented On 1 12:24PM ; [facility] Ordered follow-up visit 1 we ek Patient was given a refill on Xanax. Started on hydralazine. She was given a sample of Anoro FOLLOW UP with LINETTE PALAFOX MD 10/25/2020 Last Documented On 1 5:17PM ; [facility] Ordered return to the clinic if condition worsens or new symptoms arise FOLLOW UP with LINETTE PALAFOX MD 10/25/2020 Last Documented On 1 5:17PM ; [facility] PLAN [Use for s.o.a.p. note free text] FOLLOW UP with LINETTE PALAFOX MD 10/25/2020 Last Documented On 1 5:17PM ; [facility] Ordered follow-up visit 3 months * PHONE CALL wi LINETTE PALAFOX MD 07/24/2020 Last Documented On 0 11:44AM ; [facility] Ordered return to the clinic if condition worsens or new symptoms arise * PHONE CALL with LINETTE PALAFOX MD 07/24/2020 Last Documented On 0 11:44AM ; [facility] PLAN [Use for s.o.a.p. note free text] * PHONE CALL with LINETTE PALAFOX MD 07/24/2020 Last Documented On 0 11:44AM ; [facility] Ordered follow-up visit 3 month PROBLEM VISIT wi th LINETTE PALAFOX MD 06/22/2020 Last Documented On 0 2:26PM ; [facility] Ordered return to the clinic if condition worsens or new symptoms arise PROBLEM VISIT with LINETTE PALAFOX MD 06/22/2020 Last Documented On 0 2:26PM ; [facility] PLAN [Use for s.o.a.p. note free text] PROBLEM VISIT with LINETTE PALAFOX MD 06/22/2020 Last Documented On 0 2:26PM ; [facility] Referrals To Diagnosis Breast Specialist [facility] [address] [place] [address] - Malignant neoplasm of unsp site of unspecified female breast Note: Dx bilateral breast ca ncersend to [facility] to see Dr. Reynaldo Figueredo Last Documented On 0 4:45PM ; [facility] Wound Care [facility] [address], [place] [id number] - Postmastectomy lymphedema syndrome Note: lymphedema evaluate an d treat bilat arms Last Documented On 3 12:26PM ; [facility] Instructions to patient Intervention and counseling on cessation of tobacco use Last Documented On 4 1:04PM ; [facility] Intervention and counseling on cessation of tobacco use Last Documented On 2 10:07AM ; [facility] Lose weight Last Documented On 2 5:56PM ; [facility] Intervention and counseling on cessation of tobacco use Last Documented On 1 2:45PM ; [facility] Smoking cessation Last Documented On 0 9:25AM ; [facility] Intervention and counseling on cessation of tobacco use Last Documented On 0 8:08AM ; [facility] Lose weight your BMI [...] ~ Last Documented On 0 9:29AM ; [facility] Assessments Includes: Assessments for all patient encounters Findings Encounter Date Anxiety disorder NOS CHECK UP with NATALIYA Ioana VIDAL-BLAYNEZ SOCIAL WORK CASE MANAGER-C 11/03/2023 Last Documented On 4 1:35PM ; [facility] Malignant essential hypertension CHECK U P with NATALIYA Ioana HAYSER-HULTZ SOCIAL WORK CASE MANAGER-C 11/03/2023 Last Documented On 4 1:35PM ; [facility] Myalgia and myositis CHECK UP with NATALIYA Ioana VIDAL-HULTZ SOCIAL WORK CASE MANAGER-C 11/03/2023 Last Documented On 4 1:35PM ; [facility] Postmastectomy lymphedema syndrome CHECK UP with NATALIYA Ioana VIDAL-HUZ SOCIAL WORK CASE MANAGER-C 11/03/2023 Last Documented On 4 1:35PM ; [facility] Chronic obstructive pulmonar y disease with exacerbation CHECK UP with NATALIYA Ioana VIDAL-BLAYNEZ SOCIAL WORK CASE MANAGER-C 05/12/2023 Last Documented On 3 2:09PM ; [facility] Disorders of skin and subcut aneous tissue in diseases classified elsewhere CHECK UP with NATALIYA Ioana VIDAL-HULTZ SOCIAL WORK CASE MANAGER-C 05/12/2023 Last Documented On 3 2:09PM ; [facility] Malignant essential hypertension CHECK U P with NATALIYA Ioana HAYSER-HULTZ SOCIAL WORK CASE MANAGER-C 05/12/2023 Last Documented On 3 2:09PM ; [facility] Postmastectomy lymphedema syndrome CHECK UP with NATALIYA Ioana VIDAL-LANLTZ SOCIAL WORK CASE MANAGER-C 05/12/2023 Last Documented On 3 2:09PM ; [facility] Adjustment disorder with anx iety and depressed mood CHECK UP with NATALIYA Ioana CLONINGER-HULTZ SOCIAL WORK CASE MANAGER-C 02/21/2022 Last Documented On 2 11:48AM ; [facility] Malignant essential hypertension CHECK U P with NATALIYA Ioana CLONINGER-HULTZ SOCIAL WORK CASE MANAGER-C 02/21/2022 Last Documented On 2 11:48AM ; [facility] Myalgia and myositis CHECK UP with NATALIYA Ioana CLONINGER-HULTZ SOCIAL WORK CASE MANAGER-C 02/21/2022 Last Documented On 2 11:48AM ; [facility] Adjustment disorder with anx iety and depressed mood CHECK UP with NATALIYA E CLONINGER-HULTZ SOCIAL WORK CASE MANAGER-C 08/21/2021 Last Documented On 2 5:56PM ; [facility] Anxiety disorder NOS CHECK UP with NATALIYA Ioana CLONINGER-HULTZ SOCIAL WORK CASE MANAGER-C 08/21/2021 Last Documented On 2 5:56PM ; [facility] Assessment of breast complaints CHECK UP with NATALIYA Ioana CLONINGER-HULTZ SOCIAL WORK CASE MANAGER-C 08/21/2021 Last Documented On 2 5:56PM ; [facility] Chronic obstructive pulmonar y disease with exacerbation CHECK UP with NATALIYA Ioana CLONINGER-HULTZ SOCIAL WORK CASE MANAGER-C 08/21/2021 Last Documented On 2 5:56PM ; [facility] Malignant essential hypertension CHECK U P with NATALIYA Ioana CLONINGER-HULTZ SOCIAL WORK CASE MANAGER-C 08/21/2021 Last Documented On 2 5:56PM ; [facility] Anxiety disorder NOS CHECK UP with LINETTE ORANTES MD 02/23/2021 Last Documented On 1 12:24PM ; [facility] Malignant essential hypertension CHECK UP with Ac PALAFOX MD 02/23/2021 Last Documented On 1 12:24PM ; [facility] Adjustment disorder with anx iety and depressed mood FOLLOW UP with LINETTE PALAFOX MD 10/25/2020 Last Documented On 1 5:17PM ; [facility] Chronic obstructive pulmonar y disease with exacerbation FOLLOW UP with LINETTE PALAFOX MD 10/25/2020 Last Documented On 1 5:17PM ; [facility] Malignant essential hypertension FOLLOW UP with LINETTE PALAFOX MD 10/25/2020 Last Documented On 1 5:17PM ; [facility] Nicotine dependence continuous NEW PATIE NT VISIT with NATALIYA PINO-Phi 02/04/2020 Last Documented On 0 9:34AM ; [facility] No Smoking Cessation NEW PATIENT VISIT w ith NATALIYA PINO-C 02/04/2020 Last Documented On 0 9:34AM ; [facility] Instructions Includes: Instructions for all patient encounters Instructions to patient Intervention and counseling on cessation of tobacco use Last Documented On 4 1:04PM ; [facility] Intervention and counseling on cessation of tobacco use Last Documented On 2 10:07AM ; [facility] Lose weight Last Documented On 2 5:56PM ; [facility] Intervention and counseling on cessation of tobacco use Last Documented On 1 2:45PM ; [facility] Smoking cessation Last Documented On 0 9:25AM ; [facility] Intervention and counseling on cessation of tobacco use Last Documented On 0 8:08AM ; [facility] Lose weight your BMI is [...] ~ Last Documented On 0 9:29AM ; [facility] Medical Equipment - Implanted Devices Includes: Current and historical Devices No Medical Equipment Recorded Medications Includes: Current and historical Medications Current Medications (continue as prescribed) Albuterol Sulfate HFA 108 (90 Base) MCG/ACT Inhalation Aerosol Solution 01/28/2024 Provider: NATALIYA MEZA Diagnosis: Anxiety disorder , unspecified 2 puff q 4 hours prn Last Documented On 01/28/2024 3:45PM By Diogenes RÍOS ; [facility] traMADol HCl 50 MG Oral Tablet 01/27/2024 Provider: NATALIIA Colunga Diagnosis: Myalgia, unspeci fied site One tablet at bed time Last Documented On 4 1:30PM By Nataliia Bhat PA-C ; [facility] Xanax 0.25 MG Oral Tablet 01/16/2024 Provider: NATALIYA MEZA Diagnosis: Anxiety disorder , unspecified One tablet three times a day Last Documented On 4 12:41PM By Nataliya MEZA ; [facility] Pregabalin 150 MG Oral Capsule 01/16/2024 Provider: NATALIYA MEZA Diagnosis: Myalgia, unspeci fied site once daily Last Documented On 4 12:41PM By Nataliya MEZA ; [facility] Trelegy Ellipta 100-62.5-25 MCG/ACT Inhalation Aerosol Powder Breath Activated 10/13/2023 Provider: NATALIYA MEZA Diagnosis: Chronic obstruct james pulmonary disease w (acute) exacerbation 1 puff daily Last Documented On 4 4:03PM By Nataliya MEZA ; [facility] guaiFENesin ER 600 MG Oral Tablet Extended Release 12 Hour 05/12/2023 Provider: NATALIYA MEZA Diagnosis: Chronic obstruct james pulmonary disease w (acute) exacerbation One tablet twice a day Last Documented On 3 2:08PM By Nataliya MEZA ; [facility] hydroCHLOROthiazide 25 MG Oral Tablet 05/05/2023 Provider: NATALIYA MEZA Diagnosis: Essential (prima ry) hypertension One tablet daily Last Documented On 3 11:14AM By Nataliya MEZA ; [facility] PARoxetine HCl 20 MG Oral Tablet 05/01/2023 Provider: NATALIYA MEZA Diagnosis: Adjustment disor jose guadalupe with mixed anxiety and depressed mood One tablet daily Last Documented On 3 8:34AM By Nataliya MEZA ; [facility] Lisinopril 5 MG Oral Tablet 05/01/2023 Provider: NATALIYA MEZA Diagnosis: Essential (prima ry) hypertension One tablet daily Last Documented On 3 8:34AM By Nataliya MEZA ; [facility] Aspirin Adult Low Dose 81 MG Oral Tablet Delayed Relea se 08/21/2021 Provider: Diagnosis: Last Documented On 08/21/2021 2:45PM By Anabella RÍOS ; [facility] Past Medications on file traMADol HCl 50 MG Oral Tablet 12/31/2023 - 01/27/2024 Provider: NATALIYA MEZA Diagnosis: Myalgia, unspeci fied site One tablet at bed time Last Documented On 4 1:28PM By Nataliia Bhat PA-C ; [facility] Pregabalin 150 MG Oral Capsule 12/19/2023 - 01/16/2024 Provider: NATALIIA BHAT PA-C Diagnosis: Myalgia, unspeci fied site once daily Last Documented On 4 12:29PM By Nataliya MEZA ; [facility] traMADol HCl 50 MG Oral Tablet 12/03/2023 - 12/31/2023 Provider: NATALIYA MEZA Diagnosis: Myalgia, unspeci fied site One tablet at bed time Last Documented On 4 7:43PM By Nataliya MEZA ; [facility] traMADol HCl 50 MG Oral Tablet 11/03/2023 - 12/03/2023 Provider: NATALIYA MEZA Diagnosis: Myalgia, unspeci fied site One tablet at bed time Last Documented On 4 12:57PM By Nataliya MEZA ; [facility] Xanax 0.25 MG Oral Tablet 10/22/2023 - 01/16/2024 Provider: NATALIYA MEZA Diagnosis: Anxiety disorder , unspecified One tablet three times a day Last Documented On 4 12:29PM By Nataliya MEZA ; [facility] Pregabalin 150 MG Oral Capsule 10/21/2023 - 12/19/2023 Provider: NATALIYA MEZA Diagnosis: Myalgia, unspeci fied site once daily Last Documented On 4 11:45AM By Nataliia Bhat PA-C ; [facility] Pregabalin 150 MG Oral Capsule 09/22/2023 - 10/21/2023 Provider: NATALIYA MEZA Diagnosis: Myalgia, unspeci fied site once daily Last Documented On 4 6:03PM By Nataliya MEZA ; [facility] Pregabalin 150 MG Oral Capsule 08/25/2023 - 09/22/2023 Provider: NATALIYA MEZA Diagnosis: Myalgia, unspeci fied site once daily Last Documented On 4 5:23PM By Nataliya MEZA ; [facility] Albuterol Sulfate HFA 108 (90 Base) MCG/ACT Inhalation Aerosol Solution 07/23/2023 - 01/28/2024 Provider: NATALIYA GUO SOCIAL WORK CASE MANAGER-C Diagnosis: Anxiety disorder , unspecified 2 puff q 4 hours prn Last Documented On 01/28/2024 3:30PM By Diogenes RÍOS ; [facility] Xanax 0.25 MG Oral Tablet 07/22/2023 - 10/22/2023 Provider: NATALIYA MEZA Diagnosis: Anxiety disorder , unspecified One tablet three times a day Last Documented On 4 11:48AM By Nataliya MEZA ; [facility] Pregabalin 150 MG Oral Capsule 07/22/2023 - 08/25/2023 Provider: NATALIYA MEZA Diagnosis: Myalgia, unspeci fied site once daily Last Documented On 4 2:14PM By Nataliya MEZA ; [facility] Pregabalin 150 MG Oral Capsule 06/12/2023 - 07/22/2023 Provider: NATALIYA MEZA Diagnosis: Myalgia, unspeci fied site once daily Last Documented On 3 10:57AM By Nataliya MEZA ; [facility] traMADol HCl 50 MG Oral Tablet 06/12/2023 - 11/03/2023 Provider: NATALIYA MEZA Diagnosis: Myalgia, unspeci fied site One tablet at bed time Last Documented On 4 1:17PM By Nataliya MEZA ; [facility] traMADol HCl 50 MG Oral Tablet 05/13/2023 - 06/12/2023 Provider: NATALIYA MEZA Diagnosis: Myalgia, unspeci fied site One tablet at bed time Last Documented On 3 1:25PM By Nataliya MEZA ; [facility] Bactrim DS 800-160 MG Oral Tablet 05/12/2023 - 11/03/2023 Provider: NATALIYA MEZA Diagnosis: Oth disorders of skin, subcu in diseases classd elswhr One tablet twice a day Last Documented On 11/03/2023 1:00PM By Diogenes RÍOS ; [facility] Metoprolol Succinate ER 50 MG Oral Tablet Extended Release 24 Hour 05/01/2023 - 05/12/2023 Provider: NATALIYA MEZA Diagnosis: One tablet daily Last Documented On 3 1:35PM By Nataliya MEZA ; [facility] hydrALAZINE HCl 25 MG Oral Tablet 05/01/2023 - 05/12/2023 Provider: NATALIYA MEZA Diagnosis: Essential (prima ry) hypertension One tablet three times a day Last Documented On 3 1:35PM By Nataliya MEZA ; [facility] Pregabalin 150 MG Oral Capsule 05/01/2023 - 06/12/2023 Provider: NATALIYA MEZA Diagnosis: Myalgia, unspeci fied site once daily Last Documented On 3 1:26PM By Nataliya MEZA ; [facility] Xanax 0.25 MG Oral Tablet 05/01/2023 - 07/22/2023 Provider: NATALIYA MEZA Diagnosis: Anxiety disorder , unspecified One tablet three times a day Last Documented On 3 10:58AM By Nataliya MEZA ; [facility] Pregabalin 150 MG Oral Capsule 04/25/2023 - 05/01/2023 Provider: NATALIYA MEZA Diagnosis: Myalgia, unspeci fied site once daily Last Documented On 3 8:25AM By Nataliya MEZA ; [facility] Pregabalin 150 MG Oral Capsule 03/25/2023 - 04/25/2023 Provider: NATALIYA MEZA Diagnosis: Myalgia, unspeci fied site once daily Last Documented On 3 9:00AM By Nataliya MEZA ; [facility] Trelegy Ellipta 100-62.5-25 MCG/ACT Inhalation Aerosol Powder Breath Activated 03/13/2023 - 10/13/2023 Provider: NATALIYA MEZA Diagnosis: Chronic obstruct james pulmonary disease w (acute) exacerbation 1 puff daily Last Documented On 4 3:47PM By Nataliya MEZA ; [facility] Albuterol Sulfate HFA 108 (90 Base) MCG/ACT Inhalation Aerosol Solution 01/14/2023 - 07/23/2023 Provider: NATALIYA MEZA Diagnosis: Anxiety disorder , unspecified 2 puff q 4 hours prn Last Documented On 3 12:24PM By Nataliya MEZA ; [facility] Pregabalin 75 MG Oral Capsule 12/24/2022 - 04/24/2023 Provider: NATALIYA MEZA Diagnosis: Myalgia of auxiliary muscles, head and neck One tablet twice a day Last Documented On 04/24/2023 4:43PM By Diogenes RÍOS ; [facility] Metoprolol Succinate ER 50 MG Oral Tablet Extended Release 24 Hour 12/16/2022 - 05/01/2023 Provider: NATALIYA MEZA Diagnosis: One tablet daily Last Documented On 3 8:23AM By Nataliya MEZA ; [facility] Xanax 0.25 MG Oral Tablet 11/25/2022 - 05/01/2023 Provider: NATALIYA MEZA Diagnosis: Anxiety disorder , unspecified One tablet three times a day Last Documented On 3 8:24AM By Nataliya MEZA ; [facility] Xanax 0.25 MG Oral Tablet 10/28/2022 - 11/25/2022 Provider: NATALIYA MEZA Diagnosis: Anxiety disorder , unspecified One tablet three times a day Last Documented On 3 2:53PM By Nataliya MEZA ; [facility] PARoxetine HCl 20 MG Oral Tablet 10/25/2022 - 05/01/2023 Provider: NATALIYA MEZA Diagnosis: Adjustment disor jose guadalupe with mixed anxiety and depressed mood One tablet daily Last Documented On 3 8:21AM By Nataliya MEZA ; [facility] Lisinopril 5 MG Oral Tablet 10/25/2022 - 05/01/2023 Provider: NATALIYA MEZA Diagnosis: Essential (prima ry) hypertension One tablet daily Last Documented On 3 8:22AM By Nataliya MEZA ; [facility] hydroCHLOROthiazide 25 MG Oral Tablet 10/25/2022 - 05/05/2023 Provider: NATALIYA MEZA Diagnosis: Essential (prima ry) hypertension One tablet daily Last Documented On 3 11:09AM By Nataliya MEZA ; [facility] hydrALAZINE HCl 25 MG Oral Tablet 10/25/2022 - 05/01/2023 Provider: NATALIYA MEZA Diagnosis: Essential (prima ry) hypertension One tablet three times a day Last Documented On 3 8:22AM By Nataliya MEZA ; [facility] Xanax 0.25 MG Oral Tablet 08/16/2022 - 10/28/2022 Provider: NATALIYA MEZA Diagnosis: Anxiety disorder , unspecified One tablet three times a day Last Documented On 3 8:21AM By Nataliya GIVENSP-C ; [facility] Pregabalin 75 MG Oral Capsule 08/16/2022 - 12/24/2022 Provider: NATALIYA GIVENSP-C Diagnosis: Myalgia of auxiliary muscles, head and neck One tablet twice a day Last Documented On 3 1:04PM By Nataliya GIVENSP-C ; [facility] Gabapentin 300 MG Oral Capsule 06/04/2022 - 10/23/2022 Provider: NATALIYA NELSON SOCIAL WORK CASE MANAGER-C Diagnosis: One tablet twice a day Last Documented On 10/23/2022 10:08AM By Diogenes RÍOS ; [facility] Xanax 0.25 MG Oral Tablet 05/16/2022 - 08/16/2022 Provider: NATALIYA GIVENSP-C Diagnosis: Anxiety disorder , unspecified One tablet three times a day Last Documented On 2 5:02PM By Nataliya GIVENSP-C ; [facility] PARoxetine HCl 20 MG Oral Tablet 04/24/2022 - 10/25/2022 Provider: NATALIYA GIVENSP-C Diagnosis: Adjustment disor jose guadalupe with mixed anxiety and depressed mood One tablet daily Last Documented On 10/25/2022 2:01PM By Diogenes RÍOS ; [facility] Lisinopril 5 MG Oral Tablet 04/24/2022 - 10/25/2022 Provider: NATALIYA GUO SOCIAL WORK CASE MANAGER-C Diagnosis: Essential (prima ry) hypertension One tablet daily Last Documented On 10/25/2022 2:01PM By Diogenes RÍOS ; [facility] Pregabalin 75 MG Oral Capsule 04/24/2022 - 08/16/2022 Provider: NATALIYA GIVENSP-C Diagnosis: Myalgia of auxiliary muscles, head and neck One tablet twice a day Last Documented On 2 5:03PM By Nataliya PINO-C ; [facility] Pregabalin 75 MG Oral Capsule 03/26/2022 - 04/24/2022 Provider: NATALIYA PINO-Phi Diagnosis: Myalgia of auxiliary muscles, head and neck One tablet twice a day Last Documented On 2 9:14PM By Nataliya PINO-Phi ; [facility] Incruse Ellipta 62.5 MCG/INH Inhalation Aerosol Powder Breath Activated 03/06/2022 - 02/21/2022 Provider: Diagnosis: Chronic obstruct james pulmonary disease w (acute) exacerbation 2 puffs inhaled bid Last Documented On 03/06/2022 4:32PM By Diogenes RÍOS ; [facility] Incruse Ellipta 62.5 MCG/INH Inhalation Aerosol Powder Breath Activated 03/06/2022 - 05/12/2023 Provider: NATALIYA GIVENSP-C Diagnosis: Chronic obstruct james pulmonary disease w (acute) exacerbation as directed 2 puffs inhaled bid Last Documented On 05/12/2023 1:25PM By Leyla RÍOS ; [facility] Pregabalin 75 MG Oral Capsule 02/21/2022 - 03/26/2022 Provider: NATALIYA GIVENSP-C Diagnosis: Myalgia of auxiliary muscles, head and neck One tablet twice a day Last Documented On 2 12:14PM By Nataliya PINO-Phi ; [facility] Xanax 0.25 MG Oral Tablet 02/21/2022 - 05/16/2022 Provider: NATALIYA GUO SOCIAL WORK CASE MANAGER-C Diagnosis: Anxiety disorder , unspecified One tablet three times a day Last Documented On 2 1:25PM By Nataliya MEZA ; [facility] Xanax 0.25 MG Oral Tablet 11/05/2021 - 02/21/2022 Provider: NATALIYA NELSON SOCIAL WORK CASE MANAGER-C Diagnosis: One tablet three times a day Last Documented On 2 11:13AM By Nataliya PINO-C ; [facility] Gabapentin 300 MG Oral Capsule 08/22/2021 - 02/21/2022 Provider: NATALIYA MEZA Diagnosis: Other signs and symptoms in breast One tablet twice a day Last Documented On 2 10:30AM By Nataliya PINO-Phi ; [facility] Cyclobenzaprine HCl 5 MG Oral Tablet 08/22/2021 - 02/21/2022 Provider: NATALIYA PINO-Phi Diagnosis: Myalgia of auxiliary muscles, head and neck One tablet three times a day Last Documented On 2 10:25AM By Nataliya MEZA ; [facility] PARoxetine HCl 20 MG Oral Tablet 08/21/2021 - 04/24/2022 Provider: NATALIYA MEZA Diagnosis: Adjustment disor jose guadalupe with mixed anxiety and depressed mood One tablet daily Last Documented On 04/24/2022 4:44PM By Diogenes RÍOS ; [facility] Xanax 0.25 MG Oral Tablet 08/21/2021 - 11/05/2021 Provider: NATALIYA PINO-Phi Diagnosis: One tablet three times a day Last Documented On 2 8:13AM By Nataliya MEZA ; [facility] hydrALAZINE HCl 25 MG Oral Tablet 08/21/2021 - 10/25/2022 Provider: NATALIYA PINO-Phi Diagnosis: Essential (prima ry) hypertension One tablet three times a day Last Documented On 10/25/2022 2:02PM By Diogenes RÍOS ; [facility] hydroCHLOROthiazide 25 MG Oral Tablet 08/21/2021 - 10/25/2022 Provider: NATALIYA PINO-C Diagnosis: Essential (prima ry) hypertension One tablet daily Last Documented On 3 2:11PM By Nataliya MEZA ; [facility] Lisinopril 5 MG Oral Tablet 08/21/2021 - 04/24/2022 Provider: NATALIYA MEZA Diagnosis: Essential (prima ry) hypertension One tablet daily Last Documented On 04/24/2022 4:44PM By Diogenes RÍOS ; [facility] Lisinopril 20 MG Oral Tablet 08/21/2021 - 02/21/2022 Provider: NATALIYA MEZA Diagnosis: Essential (prima ry) hypertension One tablet daily Last Documented On 2 10:25AM By Nataliya MEZA ; [facility] Metoprolol Succinate ER 50 MG Oral Tablet Extended Release 24 Hour 08/21/2021 - 12/16/2022 Provider: NATALIYA MEZA Diagnosis: One tablet daily Last Documented On 3 2:53PM By Nataliia Bhat PA-C ; [facility] Bevespi Aerosphere 9-4.8 MCG/ACT Inhalation Aerosol 08/21/2021 - 03/06/2022 Provider: NATALIYA MEZA Diagnosis: Chronic obstruct james pulmonary disease w (acute) exacerbation 2 puffs inhaled bid Last Documented On 03/06/2022 4:32PM By Diogenes RÍOS ; [facility] hydrALAZINE HCl 25 MG Oral Tablet 02/23/2021 - 08/21/2021 Provider: LINETTE PALAFOX MD Diagnosis: Essential (prima ry) hypertension One tablet three times a day Last Documented On 2 3:46PM By Nataliya MEZA ; [facility] Xanax 0.25 MG Oral Tablet [...] prn Last Documented On 3 12:35PM By Natalyia MEZA ; [facility] Xanax 0.25 MG Oral Tablet 02/03/2021 - 02/23/2021 Prov ider: LINETTE PALAFOX MD Diagnosis: One tablet at bed time Last Documented On 02/23/2021 3:36PM By LINETTE PALAFOX MD ; [facility] Xanax 0.25 MG Oral Tablet 02/03/2021 - 02/03/2021 Prov ider: LINETTE PALAFOX MD Diagnosis: One tablet at bed time Last Documented On 02/03/2021 2:10PM By LINETTE PALAFOX MD ; [facility] Albuterol Sulfate HFA 108 (90 Base) MCG/ACT Inhalation Aerosol Solution 02/01/2021 - 02/23/2021 Provider: LINETTE PALAFOX MD Diagnosis: Anxiety disorder , unspecified 2 puff q 4 hours prn Last Documented On 02/23/2021 3:35PM By LINETTE PALAFOX MD ; [facility] Xanax 0.25 MG Oral Tablet 02/01/2021 - 07/20/2021 Provider: LINETTE PALAFOX MD Diagnosis: Anxiety disorder , unspecified One tablet three times a day Last Documented On 1 11:51AM By JAYLENE RÍOS ; [facility] Albuterol Sulfate 108 (90 Ba se) MCG/ACT Inhalation Aerosol Powder Breath Activated 02/01/2021 - 07/20/2021 Provider: Diagnosis: 2 PUFFS PRN Last Documented On 1 11:51AM By JAYLENE RÍOS ; [facility] hydroCHLOROthiazide 25 MG Or al Tablet 12/06/2020 - 08/21/2021 Provider: LINETTE PALAFOX MD Diagnosis: One tablet daily Last Documented On 2 3:46PM By Nataliya MEZA ; [facility] hydroCHLOROthiazide 25 MG Oral Tablet 12/05/2020 - Provider: Diagnosis: Last Documented On 12/06/2020 9:33AM By LINETTE PALAFOX MD ; [facility] hydroCHLOROthiazide 25 MG Oral Tablet 12/05/2020 - Provider: Diagnosis: Last Documented On 12/05/2020 6:08PM By Miladis RÍOS ; [facility] Xanax 0.5 MG Oral Tablet 10/26/2020 - 08/21/2021 Provider: LINETTE Doll MD Diagnosis: Adjustment disor jose guadalupe with mixed anxiety and depressed mood One tablet three times a day Last Documented On 08/21/2021 2:44PM By Anabella RÍOS ; [facility] Xanax 0.5 MG Oral Tablet 10/25/2020 - 10/26/2020 Provider: LINETTE Doll MD Diagnosis: Adjustment disor jose guadalupe with mixed anxiety and depressed mood 1 every 6 hours as needed Last Documented On 10/26/2020 4:03PM By LINETTE PALAFOX MD ; [facility] hydrALAZINE HCl 25 MG Oral Tablet 10/25/2020 - 02/23/2021 Provider: LINETTE PALAFOX MD Diagnosis: Essential (prima ry) hypertension One tablet three times a day Last Documented On 02/23/2021 3:36PM By LINETTE PALAFOX MD ; [facility] Trelegy Ellipta 100-62.5-25 MCG/INH Inhalation Aerosol Powder Breath Activated 09/21/2020 - 12/20/2020 Provider: LINETTE PALAFOX MD Diagnosis: Chronic obstruct james pulmonary disease w (acute) exacerbation INHALE 1 PUFF BY MOUTH ONCE DAILY AT BEDTIME Last Documented On 09/21/2020 2:34PM By Miladis RÍOS ; [facility] Metoprolol Succinate ER 50 M G Oral Tablet Extended Release 24 Hour 09/20/2020 - 08/21/2021 Provider: LINETTE Doll MD Diagnosis: One tablet daily Last Documented On 3:46PM By Nataliya MEZA ; [facility] Anoro Ellipta 62.5-25 MCG/IN H Inhalation Aerosol Powder Breath Activated 09/20/2020 - 08/21/2021 Provider: LINETTE Doll MD Diagnosis: use inhalation at bedtime Last Documented On 08/21/2021 2:43PM By Anabella RÍOS ; [facility] Anoro Ellipta 62.5-25 MCG/IN H Inhalation Aerosol Powder Breath Activated 08/27/2020 - 09/20/2020 Provider: LINETTE Doll MD Diagnosis: use inhalation at bedtime Last Documented On 09/20/2020 9:18AM By Miladis RÍOS ; [facility] Metoprolol Succinate ER 50 M G Oral Tablet Extended Release 24 Hour 08/24/2020 - 09/20/2020 Provider: LINETTE Doll MD Diagnosis: One tablet daily Last Documented On 09/20/2020 9:17AM By Miladis RÍOS ; [facility] PARoxetine HCl 20 MG Oral Tablet 07/24/2020 - 08/21/2021 Provider: LINETTE PALAFOX MD Diagnosis: Adjustment disor jose guadalupe with mixed anxiety and depressed mood One tablet daily Last Documented On 2 3:46PM By aNtaliya MEZA ; [facility] Lisinopril 20 MG Oral Tablet 07/24/2020 - 08/21/2021 Provider: LINETTE PALAFOX MD Diagnosis: Essential (prima ry) hypertension One tablet daily Last Documented On 2 3:46PM By Nataliya MEZA ; [facility] Spiriva Respimat 2.5 MCG/ACT Inhalation Aerosol Solution 07/24/2020 - 08/21/2021 Provider: LINETTE PALAFOX MD Diagnosis: Chronic obstruct james pulmonary disease w (acute) exacerbation 1 puff daily Last Documented On 2 3:29PM By Nataliya MEZA ; [facility] Lomotil 2.5-0.025 MG Oral Tablet 07/24/2020 - 08/21/2021 Provider: LINETTE PALAFOX MD Diagnosis: Diarrhea, unspec ified Take one four times a day as needed Last Documented On 2 3:33PM By Nataliya MEZA ; [facility] PARoxetine HCl 10 MG Oral Tablet 07/20/2020 - 08/21/2021 Provider: LINETTE PALAFOX MD Diagnosis: Adjustment disor jose guadalupe with mixed anxiety and depressed mood One tablet daily Last Documented On 08/21/2021 2:44PM By Anabella RÍOS ; [facility] Chantix 1 MG Oral Tablet 06/28/2020 - 07/20/2021 Provi jose guadalupe: LINETTE PALAFOX MD Diagnosis: One tablet twice a day Last Documented On 1 11:51AM By JAYLENE RÍOS ; [facility] Chantix Starting Month David 0 .5 MG X 11 & 1 MG X 42 Oral Tablet 06/28/2020 - 09/26/2020 Provider: LINETTE Doll MD Diagnosis: as directed by package Last Documented On 1 10:26AM By JAYLENE RÍOS ; [facility] Xanax 0.5 MG Oral Tablet 06/28/2020 - 10/25/2020 Provi jose guadalupe: LINETTE PALAFOX MD Diagnosis: 1 every 6 hours as needed Last Documented On 10/25/2020 5:07PM By LINETTE PALAFOX MD ; [facility] Lisinopril 5 MG Oral Tablet 06/22/2020 - 08/21/2021 Provider: LINETTE PALAFOX MD Diagnosis: Essential (prima ry) hypertension One tablet daily Last Documented On 2 3:46PM By Nataliya MEZA ; [facility] Paxil 10 MG Oral Tablet 06/22/2020 - 07/20/2020 Provider: LINETTE Doll MD Diagnosis: Adjustment disor jose guadalupe with mixed anxiety and depressed mood One tablet daily Last Documented On 07/20/2020 3:55PM By LINETTE PALAFOX MD ; [facility] Xanax 0.25 MG Oral Tablet 05/17/2020 - 02/01/2021 Provider: NATALIYA MEZA Diagnosis: Anxiety disorder , unspecified 1 every 6 hours as needed Last Documented On 02/01/2021 3:34PM By LINETTE PALAFOX MD ; [facility] busPIRone HCl 5 MG Oral Tablet 05/07/2020 - 07/24/2020 Provider: NATALIYA MEZA Diagnosis: Anxiety disorder , unspecified One tablet three times a day Last Documented On 07/24/2020 9:26AM By Miladis RÍOS ; [facility] Spiriva Respimat 2.5 MCG/ACT Inhalation Aerosol Solution 05/02/2020 - 07/24/2020 Provider: NATALIYA MEZA Diagnosis: Chronic obstruct james pulmonary disease w (acute) exacerbation 1 puff daily Last Documented On 07/24/2020 9:54AM By LINETTE PALAFOX MD ; [facility] Xanax 0.25 MG Oral Tablet 05/02/2020 - 05/17/2020 Provider: NATALIYA MEZA Diagnosis: Anxiety disorder , unspecified 1 every 6 hours as needed Last Documented On 0 9:35AM By Nataliya MEZA ; [facility] Xanax 0.25 MG Oral Tablet 03/14/2020 - 05/02/2020 Provider: NATALIYA MEZA Diagnosis: Anxiety disorder , unspecified 1 every 6 hours as needed Last Documented On 0 5:53PM By Nataliya MEZA ; [facility] Spiriva Respimat 2.5 MCG/ACT Inhalation Aerosol Solution 02/04/2020 - 05/02/2020 Provider: ANTALIYA MEZA Diagnosis: Chronic obstruct james pulmonary disease w (acute) exacerbation 1 puff daily Last Documented On 0 5:54PM By Nataliya MEZA ; [facility] Medications Administered Includes: Administered Medications in patient's [...] 11/03/2023 Last Documented On 4 1:35PM ; [facility] 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 None 11/03/2023 Last Documented On 4 1:35PM ; [facility] Current smoker 02/21/2022 Last Documented On 2 11:48AM ; [facility] Tobacco non-user 08/21/2021 Last Documented On 2 5:56PM ; [facility] Good exercise habits 07/23/2020 Last Documented On 0 2:26PM ; [facility] No caffeine use 07/23/2020 Last Documented On 0 2:26PM ; [facility] No family problems 07/23/2020 Last Documented On 0 2:26PM ; [facility] No interpersonal problems 07/23/2020 Last Documented On 0 2:26PM ; [facility] No job change 07/23/2020 Last Documented On 0 2:26PM ; [facility] No physical disability 07/23/2020 Last Documented On 0 2:26PM ; [facility] No recent financial changes 07/23/2020 Last Documented On 0 2:26PM ; [facility] No recent legal problems 07/23/2020 Last Documented On 0 2:26PM ; [facility] No work-related circumstances 07/23/2020 Last Documented On 0 2:26PM ; [facility] Not using alcohol 07/23/2020 Last Documented On 0 2:26PM ; [facility] Not using drugs 07/23/2020 Last Documented On 0 2:26PM ; [facility] Smoker smokes 3 cig/day 06/22/2020 Last Documented On 0 2:26PM ; [facility] Cigarette smoking 02/04/2020 Last Documented On 0 9:34AM ; [facility] Current every day smoker 02/04/2020 Last Documented On 0 9:34AM ; [facility] Current smoker for 35 years 02/04/2020 Last Documented On 0 9:34AM ; [facility] Moderate cigarette smoker 02/04/2020 Last Documented On 0 9:34AM ; [facility] Smoking Status Unknown Medical History Includes: Medical History in patient's chart Description Last Updated Surgery 1979--child ~1994-- c/s Last Documented On 0 9:34AM ; [facility] Family History Includes: Family History in [...] Patient Last Documented On 1 12:40PM ; [facility] Allergies Includes: Active, inactive, and resolved Allergies No Known Allergies Encounters Includes: Encounters from 12/11/2023 through 12/10/2024 Encounter Provider Location Date Check-In Time Check-Out Time Diagnosis RX ISSUE/REFILL NATALIYA GIVENSP-C 4 11/03/2023 3:30PM 11/03/2023 11:59PM Insurance Includes: Active Insurance Policies Plan Name Member ID Group # Subscriber Relationship Effect james Dates 1 - [employer]/ MEDICARE GOLD CHOICE PLAN-A [id number] SIA Ching 2 - MED[place] MEDICARE SECOND [id number] SIA Ching Clinical Notes Includes: Signed Clinical Notes starting from 09/06/2022 No Clinical Notes Recorded
--- OUTSIDE RECORDS SUMMARY | 2024-12-10 14:50 | XMS_ITS | Clinical Summary ---
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 NATALIYA GUO INTELLIGENCE OFFICER-C Active Last Documented On 3 2:08PM ; [facility] Skin Subcutaneous Tissue Disorders in Diseases Classified Elsewhere 05/12/2023 NATALIYA TRAN Z INTELLIGENCE OFFICER-C Active Last Documented On 3 2:08PM ; [facility] Myalgia and Myositis 02/21/2022 NATALIYA JAVIER-CHRISTEL INTELLIGENCE OFFICER-C Active Last Documented On 2 11:38AM ; [facility] Anxiety Disorder Nos 03/25/2021 LINETTE WILLIS MD Active Last Documented On 1 12:23PM ; [facility] Essential Hypertension Malignant 03/25/2021 NAWAF PALAFOX MD Active Last Documented On 1 12:23PM ; [facility] Adjustment Disorder with Anx iety and Depressed Mood 10/25/2020 LINETTE PALAFOX MD Active Last Documented On 1 5:14PM ; [facility] Anxiety disorder, unspecified 02/04/2020 BINH GUO INTELLIGENCE OFFICER-C Active Last Documented On 0 8:56AM ; [facility] Chronic Obstructive Pulmonar y Disease with Exacerbation 02/04/2020 LINETTE PALAFOX MD Active Last Documented On 1 5:14PM ; [facility] Breast Complaints 02/04/2020 NATALIYA PINO-Phi Active Last Documented On 2 5:47PM ; [facility] Plan of Treatment No Plan of Treatment [...] Diagnosis: Myalgia, unspecified site once daily Pharmacy: [address], [address] - Last Documented On 3 9:00AM By Nataliya MEZA ; [facility] Current Medications (continue as prescribed) Albuterol Sulfate HFA 108 (90 Base) MCG/ACT Inhalation Aerosol Solution 01/28/2024 Provider: NATALIYA MEZA Diagnosis: Anxiety disorder , unspecified 2 puff q 4 hours prn Last Documented On 01/28/2024 3:45PM By Diogenes RÍOS ; [facility] traMADol HCl 50 MG Oral Tablet 01/27/2024 Provider: NATALIIA Colunga Diagnosis: Myalgia, unspeci fied site One tablet at bed time Last Documented On 4 1:30PM By Nataliia Bhat PA-C ; [facility] Xanax 0.25 MG Oral Tablet 01/16/2024 Provider: NATALIYA MEZA Diagnosis: Anxiety disorder , unspecified One tablet three times a day Last Documented On 4 12:41PM By Nataliya MEZA ; [facility] Pregabalin 150 MG Oral Capsule 01/16/2024 Provider: NATALIYA MEZA Diagnosis: Myalgia, unspeci fied site once daily Last Documented On 4 12:41PM By Nataliya MEZA ; [facility] Trelegy Ellipta 100-62.5-25 MCG/ACT Inhalation Aerosol Powder Breath Activated 10/13/2023 Provider: NATALIYA MEZA Diagnosis: Chronic obstruct james pulmonary disease w (acute) exacerbation 1 puff daily Last Documented On 4 4:03PM By Nataliya MEZA ; [facility] guaiFENesin ER 600 MG Oral Tablet Extended Release 12 Hour 05/12/2023 Provider: NATALIYA MEZA Diagnosis: Chronic obstruct james pulmonary disease w (acute) exacerbation One tablet twice a day Last Documented On 3 2:08PM By Nataliya MEZA ; [facility] hydroCHLOROthiazide 25 MG Oral Tablet 05/05/2023 Provider: NATALIYA MEZA Diagnosis: Essential (prima ry) hypertension One tablet daily Last Documented On 3 11:14AM By Nataliya MEZA ; [facility] PARoxetine HCl 20 MG Oral Tablet 05/01/2023 Provider: NATALIYA MEZA Diagnosis: Adjustment disor jose guadalupe with mixed anxiety and depressed mood One tablet daily Last Documented On 3 8:34AM By Nataliya MEZA ; [facility] Lisinopril 5 MG Oral Tablet 05/01/2023 Provider: NATALIYA MEZA Diagnosis: Essential (prima ry) hypertension One tablet daily Last Documented On 3 8:34AM By Nataliya MEZA ; [facility] Aspirin Adult Low Dose 81 MG Oral Tablet Delayed Relea se 08/21/2021 Provider: Diagnosis: Last Documented On 08/21/2021 2:45PM By Anabella RÍOS ; [facility] Past Medications on file Trelegy Ellipta 100-62.5-25 MCG/INH Inhalation Aerosol Powder Breath Activated 09/21/2020 - 12/20/2020 Provider: LINETTE PALAFOX MD Diagnosis: Chronic obstruct james pulmonary disease w (acute) exacerbation INHALE 1 PUFF BY MOUTH ONCE DAILY AT BEDTIME Last Documented On 09/21/2020 2:34PM By Miladis RÍOS ; [facility] Medications Administered Includes: Administered Medications from this encounter No Administered Medications Recorded Results Includes: Results discussed during this encounter No Results Recorded For Specified Dates History of Present Illness Includes: History of Present Illness from this encounter No History of Present Illness Recorded Social History Description Last Updated Current smoker 02/21/2022 Last Documented On 3 11:48AM ; [facility] Tobacco non-user 08/21/2021 Last Documented On 3 11:48AM ; [facility] Good exercise habits 07/23/2020 Last Documented On 3 11:48AM ; [facility] No caffeine use 07/23/2020 Last Documented On 3 11:48AM ; [facility] No family problems 07/23/2020 Last Documented On 3 11:48AM ; [facility] No interpersonal problems 07/23/2020 Last Documented On 3 11:48AM ; [facility] No job change 07/23/2020 Last Documented On 3 11:48AM ; [facility] No physical disability 07/23/2020 Last Documented On 3 11:48AM ; [facility] No recent financial changes 07/23/2020 Last Documented On 3 11:48AM ; [facility] No recent legal problems 07/23/2020 Last Documented On 3 11:48AM ; [facility] No work-related circumstances 07/23/2020 Last Documented On 3 11:48AM ; [facility] Not using alcohol 07/23/2020 Last Documented On 3 11:48AM ; [facility] Not using drugs 07/23/2020 Last Documented On 3 11:48AM ; [facility] Smoker smokes 3 cig/day 06/22/2020 Last Documented On 3 11:48AM ; [facility] Cigarette smoking 02/04/2020 Last Documented On 3 11:48AM ; [facility] Current every day smoker 02/04/2020 Last Documented On 3 11:48AM ; [facility] Current smoker for 35 years 02/04/2020 Last Documented On 3 11:48AM ; [facility] Moderate cigarette smoker 02/04/2020 Last Documented On 3 11:48AM ; [facility] Smoking Status Unknown Medical History Includes: Medical History addressed during this encounter Description Last Updated Surgery 1979--child ~1994-- c/s Last Documented On 3 11:48AM ; [facility] Family History Includes: Family History addressed [...] 1 - [employer]/ MEDICARE GOLD CHOICE PLAN-A [id number] SIA VILLASEÑOR Self 2 - MEDICA[place] MEDICARE SECOND [id number] SIA VILLASEÑOR Self Clinical Notes Includes: Clinical Notes from this encounter * Progress note Date Encounter Last Documented by 03/25/2023 RX ISSUE/REFILL Last documented on 03/25/2023; 1:39 PM, NATALIYA GUO INTELLIGENCE OFFICER-C; [facility] Active Problems & Conditions - F43.23 - [...]
--- OUTSIDE RECORDS SUMMARY | 2024-12-10 14:50 | XMS_ITS | Clinical Summary ---
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 NATALIYA GUO DIGITAL DIRECTOR-C Active Last Documented On 3 2:08PM ; [facility] Skin Subcutaneous Tissue Disorders in Diseases Classified Elsewhere 05/12/2023 NATALIYA TRAN Z DIGITAL DIRECTOR-C Active Last Documented On 3 2:08PM ; [facility] Myalgia and Myositis 02/21/2022 NATALIYA JAVIER-CHRISTEL DIGITAL DIRECTOR-C Active Last Documented On 2 11:38AM ; [facility] Anxiety Disorder Nos 03/25/2021 LINETTE WILLIS MD Active Last Documented On 1 12:23PM ; [facility] Essential Hypertension Malignant 03/25/2021 NAWAF PALAFOX MD Active Last Documented On 1 12:23PM ; [facility] Adjustment Disorder with Anx iety and Depressed Mood 10/25/2020 LINETTE PALAFOX MD Active Last Documented On 1 5:14PM ; [facility] Anxiety disorder, unspecified 02/04/2020 BINH GUO DIGITAL DIRECTOR-C Active Last Documented On 0 8:56AM ; [facility] Chronic Obstructive Pulmonar y Disease with Exacerbation 02/04/2020 LINETTE PALAFOX MD Active Last Documented On 1 5:14PM ; [facility] Breast Complaints 02/04/2020 NATALIYA PINO-C Active Last Documented On 2 5:47PM ; [facility] Plan of Treatment [...] q 4 hours prn Pharmacy: [facility] [address], [address] - Last Documented On 01/28/2024 3:45PM By Diogenes RÍOS ; [facility] Current Medications (continue as prescribed) traMADol HCl 50 MG Oral Tablet 01/27/2024 Provider: NATALIIA Colunga Diagnosis: Myalgia, unspeci fied site One tablet at bed time Last Documented On 4 1:30PM By Nataliia Bhat PA-C ; [facility] Xanax 0.25 MG Oral Tablet 01/16/2024 Provider: NATALIYA MEZA Diagnosis: Anxiety disorder , unspecified One tablet three times a day Last Documented On 4 12:41PM By Nataliya MEZA ; [facility] Pregabalin 150 MG Oral Capsule 01/16/2024 Provider: NATALIYA MEZA Diagnosis: Myalgia, unspeci fied site once daily Last Documented On 4 12:41PM By Nataliya MEZA ; [facility] Trelecharu Ellipta 100-62.5-25 MCG/ACT Inhalation Aerosol Powder Breath Activated 10/13/2023 Provider: NATALIYA MEZA Diagnosis: Chronic obstruct james pulmonary disease w (acute) exacerbation 1 puff daily Last Documented On 4 4:03PM By Nataliya MEZA ; [facility] guaiFENesin ER 600 MG Oral Tablet Extended Release 12 Hour 05/12/2023 Provider: NATALIYA MEZA Diagnosis: Chronic obstruct james pulmonary disease w (acute) exacerbation One tablet twice a day Last Documented On 3 2:08PM By Nataliya MEZA ; [facility] hydroCHLOROthiazide 25 MG Oral Tablet 05/05/2023 Provider: NATALIYA MEZA Diagnosis: Essential (prima ry) hypertension One tablet daily Last Documented On 3 11:14AM By Nataliya MEZA ; [facility] PARoxetine HCl 20 MG Oral Tablet 05/01/2023 Provider: NATALIYA MEZA Diagnosis: Adjustment disor jsoe guadalupe with mixed anxiety and depressed mood One tablet daily Last Documented On 3 8:34AM By Nataliya MEZA ; [facility] Lisinopril 5 MG Oral Tablet 05/01/2023 Provider: NATALIYA MEZA Diagnosis: Essential (prima ry) hypertension One tablet daily Last Documented On 3 8:34AM By Nataliya MEZA ; [facility] Aspirin Adult Low Dose 81 MG Oral Tablet Delayed Relea se 08/21/2021 Provider: Diagnosis: Last Documented On 08/21/2021 2:45PM By Anabella RÍOS ; [facility] Medications Administered Includes: [...] Check-Out Time Diagnosis RX ISSUE/REFILL NATALIYA GUO DIGITAL DIRECTOR-C 4 3:30PM 11:59PM Insurance Includes: Active Insurance Policies Plan Name Member ID Group # Subscriber Relationship Effect james Dates 1 - [employer]/ MEDICARE GOLD CHOICE PLAN-A [id number] SIA Ching 2 - MED[place] MEDICARE SECOND [id number] SIA Ching Clinical Notes Includes: Clinical Notes from this encounter No Clinical Notes Recorded
--- OUTSIDE RECORDS SUMMARY | 2024-12-10 14:50 | XMS_ITS | Clinical Summary ---
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 NATALIYA GUO MANAGER FIELD INVESTIGATIONS-C Active Last Documented On 3 2:08PM ; [facility] Skin Subcutaneous Tissue Disorders in Diseases Classified Elsewhere 05/12/2023 NATALIYA Cristina MANAGER FIELD INVESTIGATIONS-C Active Last Documented On 3 2:08PM ; [facility] Essential Hypertension Malignant 03/25/2021 NAWAF PALAFOX MD Active Last Documented On 1 12:23PM ; [facility] Chronic Obstructive Pulmonar y Disease with Exacerbation 02/04/2020 LINETTE PALAFOX MD Active Last Documented On 1 5:14PM ; [facility] Past Visits Onset Date Resolved Date Provider Condition Status Myalgia and Myositis 02/21/2022 SHAUNA GUO MANAGER FIELD INVESTIGATIONS-C Active Last Documented On 2 11:38AM ; [facility] Anxiety Disorder Nos 03/25/2021 LINETTE WILLIS MD Active Last Documented On 1 12:23PM ; [facility] Adjustment Disorder with Anx iety and Depressed Mood 10/25/2020 LINETTE PALAFOX MD Active Last Documented On 1 5:14PM ; [facility] Anxiety disorder, unspecified 02/04/2020 BINH VIDAL-CHRISTEL MANAGER FIELD INVESTIGATIONS-C Active Last Documented On 0 8:56AM ; [facility] Breast Complaints 02/04/2020 NATALIYA LOZOYA MANAGER FIELD INVESTIGATIONS-C Active Last Documented On 2 5:47PM ; [facility] Plan of Treatment Follow up in 6 months - Last Documented On 05/12/2023 2:09PM ; [facility] Referrals To Diagnosis Wound Care [facility] - [address] [place], [place] [id number] - Postmastectomy lymphedema syndrome Note: lymphedema evaluate an d treat bilat arms Last Documented On 3 12:26PM ; [facility] Assessments Includes: Assessments from this encounter Findings - [I10 - Essential (primary) hypertension] Malignant essential hypertension - Last Documented On 05/12/2023 2:09PM ; [facility] - [I97.2 - Postmastectomy lymphedema syndrome] Postmastectomy lymphedema syndrome - Last Documented On 05/12/2023 2:09PM ; [facility] - [J44.1 - Chronic obstructive pulmonary disease with (acute) exacerbation] Chronic obstructive pulmonary disease with exacerbation - Last Documented On 05/12/2023 2:09PM ; [facility] - [L99 - Other disorders of skin and subcutaneous tissue in diseases classified elsewhere] Disorders of skin and subcutaneous tissue in diseases classified elsewhere - Last Documented On 05/12/2023 2:09PM ; [facility] Medical Equipment - Implanted Devices Includes: Current Devices No Medical Equipment Recorded Medications Includes: Medications discussed during this encounter and other current Medications Discontinued / Stopped on this date NATALIYA GUO MANAGER FIELD INVESTIGATIONS-C on 05/01/2023 Metoprolol Succinate ER 50 M G Oral Tablet Extended Release 24 Hour Provider: NATALIYA PALACIO MANAGER FIELD INVESTIGATIONS-C Diagnosis: Last Documented On 3 1:35PM By Nataliya MEZA ; [facility] hydrALAZINE HCl 25 MG Oral Tablet Provider: NATALIYA MEZA Diagnosis: Essential (prima ry) hypertension Last Documented On 3 1:35PM By Nataliya MEZA ; [facility] Incruse Ellipta 62.5 MCG/INH Inhalation Aerosol Powder Breath Activated Provider: NATALIYA MEZA Diagnosis: Chronic obstruct james pulmonary disease w (acute) exacerbation Last Documented On 05/12/2023 1:25PM By Leyla RÍOS ; [facility] New / Renewed during this visit NATALIYA PINO-Phi on 05/12/2023 guaiFENesin ER 600 MG Oral Tablet Extended Release 12 Hour Provider: NATALIYA MEZA 30 day supply: 60 tablet, 11 refills Diagnosis: Chronic obstructive pulmonary disease w (acute) exacerbation One tablet twice a day Pharmacy: [address], [address] - Last Documented On 3 2:08PM By Nataliya MEZA ; [facility] Bactrim DS 800-160 MG Oral Tablet Provider: NATALIYA MEZA 7 day supply: 14 tablet, 0 refills Diagnosis: Oth disorders of skin, subcu in diseases classd elswhr One tablet twice a day Pharmacy: [facility] [address], [address] - Last Documented On 11/03/2023 1:00PM By Diogenes RÍOS ; [facility] Current Medications (continue as prescribed) Albuterol Sulfate HFA 108 (90 Base) MCG/ACT Inhalation Aerosol Solution 01/28/2024 Provider: NATALIYA MEZA Diagnosis: Anxiety disorder , unspecified 2 puff q 4 hours prn Last Documented On 01/28/2024 3:45PM By Diogenes RÍOS ; [facility] traMADol HCl 50 MG Oral Tablet 01/27/2024 Provider: NATALIIA Colunga Diagnosis: Myalgia, unspeci fied site One tablet at bed time Last Documented On 4 1:30PM By Nataliia Bhat PA-C ; [facility] Xanax 0.25 MG Oral Tablet 01/16/2024 Provider: NATALIYA MEZA Diagnosis: Anxiety disorder , unspecified One tablet three times a day Last Documented On 4 12:41PM By Nataliya MEZA ; [facility] Pregabalin 150 MG Oral Capsule 01/16/2024 Provider: NATALIYA MEZA Diagnosis: Myalgia, unspeci fied site once daily Last Documented On 4 12:41PM By Nataliya MEZA ; [facility] Trelegy Ellipta 100-62.5-25 MCG/ACT Inhalation Aerosol Powder Breath Activated 10/13/2023 Provider: NATALIYA MEZA Diagnosis: Chronic obstruct james pulmonary disease w (acute) exacerbation 1 puff daily Last Documented On 4 4:03PM By Nataliya MEZA ; [facility] hydroCHLOROthiazide 25 MG Oral Tablet 05/05/2023 Provider: NATALIYA MEZA Diagnosis: Essential (prima ry) hypertension One tablet daily Last Documented On 3 11:14AM By Nataliya MEZA ; [facility] PARoxetine HCl 20 MG [...] On 3 8:34AM By Nataliya MEZA ; [facility] Aspirin Adult Low Dose 81 MG Oral Tablet Delayed Relea se 08/21/2021 Provider: Diagnosis: Last Documented On 08/21/2021 2:45PM By Anabella Taylor Cecilio ; [facility] Past Medications on file Trelegy Ellipta 100-62.5-25 MCG/INH Inhalation Aerosol Powder Breath Activated 09/21/2020 - 12/20/2020 Provider: LINETTE PALAFOX MD Diagnosis: Chronic obstruct james pulmonary disease w (acute) exacerbation INHALE 1 PUFF BY MOUTH ONCE DAILY AT BEDTIME Last Documented On 09/21/2020 2:34PM By Miladis Small Cecilio ; [facility] Medications Administered Includes: Administered [...] 98 Last Documented: On 05/12/2023 1:48PM ; [facility] On 05/12/2023 1:30PM ; [facility] Results Includes: Results discussed during this encounter [...] smoker 02/21/2022 Last Documented On 1:22PM ; [facility] Tobacco non-user 08/21/2021 Last Documented On 3 1:22PM ; [facility] Good exercise habits 07/23/2020 Last Documented On 3 1:22PM ; [facility] No caffeine use 07/23/2020 Last Documented On 3 1:22PM ; [facility] No family problems 07/23/2020 Last Documented On 3 1:22PM ; [facility] No interpersonal problems 07/23/2020 Last Documented On 3 1:22PM ; [facility] No job change 07/23/2020 Last Documented On 3 1:22PM ; [facility] No physical disability 07/23/2020 Last Documented On 3 1:22PM ; [facility] No recent financial changes 07/23/2020 Last Documented On 3 1:22PM ; [facility] No recent legal problems 07/23/2020 Last Documented On 3 1:22PM ; [facility] No work-related circumstances 07/23/2020 Last Documented On 3 1:22PM ; [facility] Not using alcohol 07/23/2020 Last Documented On 3 1:22PM ; [facility] Not using drugs 07/23/2020 Last Documented On 3 1:22PM ; [facility] Smoker smokes 3 cig/day 06/22/2020 Last Documented On 3 1:22PM ; [facility] Cigarette smoking 02/04/2020 Last Documented On 3 1:22PM ; [facility] Current every day smoker 02/04/2020 Last Documented On 3 1:22PM ; [facility] Current smoker for 35 years 02/04/2020 Last Documented On 3 1:22PM ; [facility] Moderate cigarette smoker 02/04/2020 Last Documented On 3 1:22PM ; [facility] Smoking Status Unknown Medical History Includes: Medical History addressed during this encounter Description Last Updated Surgery 1979--child ~1994-- c/s Last Documented On 3 1:22PM ; [facility] Family History Includes: Family [...] Check-Out Time Diagnosis CHECK UP NATALIYA MEZA [facility]- 05/12/20 23 1:20PM 2:09PM Essential Hypertension Malignant,Chroni c Obstructive Pulmonary Disease with Exacerbation,Pos tmastectomy Lymphedema Syndrome,Skin Subcutaneous Tissue Disorders in Diseases Classified Elsewhere Insurance Includes: Active Insurance Policies Plan Name Member ID Group # Subscriber Relationship Effect james Dates 1 - [employer]/ MEDICARE GOLD CHOICE PLAN-A [id number] SIA Ching 2 - MED[place]ID [place] MEDICARE SECOND [id number] SIA Ching Clinical Notes Includes: Clinical Notes from this encounter * Progress note Date Encounter Last Documented by 05/12/2023 CHECK UP Last documented on 05/12/2023; 2:09 PM, NATALIYA MEZA; [facility] Active Problems & Conditions [...]
--- OUTSIDE RECORDS SUMMARY | 2024-12-10 14:50 | XMS_ITS ---
Care Plan - [facility] Created on: December 10, 2024 SIA VILLASEÑOR : 1960 Sex: Female Author Organization [facility] Address [address] [place] [address] Phone Care Team Providers Care French Instructor Name Role Phone ADRYAN KURTZ MD Primary Care Provider [phone]
--- OUTSIDE RECORDS SUMMARY | 2024-12-10 14:50 | XMS_ITS | Clinical Summary ---
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 NATALIYA PLAZA SLIP COVER MAKER-C Active Last Documented On 3 2:08PM ; [facility] Skin Subcutaneous Tissue Disorders in Diseases Classified Elsewhere 05/12/2023 NATALIYA TRAN Z SLIP COVER MAKER-C Active Last Documented On 3 2:08PM ; [facility] Myalgia and Myositis 02/21/2022 NATALIYA JAVIER-CHRISTEL SLIP COVER MAKER-C Active Last Documented On 2 11:38AM ; [facility] Anxiety Disorder Nos 03/25/2021 LINETTE WILLIS MD Active Last Documented On 1 12:23PM ; [facility] Essential Hypertension Malignant 03/25/2021 NAWAF PALAFOX MD Active Last Documented On 1 12:23PM ; [facility] Adjustment Disorder with Anx iety and Depressed Mood 10/25/2020 LINETTE PALAFOX MD Active Last Documented On 1 5:14PM ; [facility] Anxiety disorder, unspecified 02/04/2020 BINH PLAZA SLIP COVER MAKER-C Active Last Documented On 0 8:56AM ; [facility] Chronic Obstructive Pulmonar y Disease with Exacerbation 02/04/2020 LINETTE PALAFOX MD Active Last Documented On 1 5:14PM ; [facility] Breast Complaints 02/04/2020 NATALIYA PINO-Phi Active Last Documented On 2 5:47PM ; [facility] Plan of Treatment No [...] w (acute) exacerbation 1 puff daily Pharmacy: [address], [address] - Last Documented On 4 3:47PM By Nataliya MEZA ; [facility] Current Medications (continue as prescribed) Albuterol Sulfate HFA 108 (90 Base) MCG/ACT Inhalation Aerosol Solution 01/28/2024 Provider: NATALIYA MEZA Diagnosis: Anxiety disorder , unspecified 2 puff q 4 hours prn Last Documented On 01/28/2024 3:45PM By Diogenes RÍOS ; [facility] traMADol HCl 50 MG Oral Tablet 01/27/2024 Provider: NATALIIA Colunga Diagnosis: Myalgia, unspeci fied site One tablet at bed time Last Documented On 4 1:30PM By Nataliia Bhat PA-C ; [facility] Xanax 0.25 MG Oral Tablet 01/16/2024 Provider: NATALIYA MEZA Diagnosis: Anxiety disorder , unspecified One tablet three times a day Last Documented On 4 12:41PM By Nataliya MEZA ; [facility] Pregabalin 150 MG Oral Capsule 01/16/2024 Provider: NATALIYA MEZA Diagnosis: Myalgia, unspeci fied site once daily Last Documented On 4 12:41PM By Nataliya MEZA ; [facility] Trelegy Ellipta 100-62.5-25 MCG/ACT Inhalation Aerosol Powder Breath Activated 10/13/2023 Provider: NATALIYA MEZA Diagnosis: Chronic obstruct james pulmonary disease w (acute) exacerbation 1 puff daily Last Documented On 4 4:03PM By Nataliya MEZA ; [facility] guaiFENesin ER 600 MG Oral Tablet Extended Release 12 Hour 05/12/2023 Provider: NATALIYA MEZA Diagnosis: Chronic obstruct james pulmonary disease w (acute) exacerbation One tablet twice a day Last Documented On 3 2:08PM By Nataliya MEZA ; [facility] hydroCHLOROthiazide 25 MG Oral Tablet 05/05/2023 Provider: NATALIYA MEZA Diagnosis: Essential (prima ry) hypertension One tablet daily Last Documented On 3 11:14AM By Nataliya MEZA ; [facility] PARoxetine HCl 20 MG Oral Tablet 05/01/2023 Provider: NATALIYA MEZA Diagnosis: Adjustment disor jose guadalupe with mixed anxiety and depressed mood One tablet daily Last Documented On 3 8:34AM By Nataliya MEZA ; [facility] Lisinopril 5 MG Oral Tablet 05/01/2023 Provider: NATALIYA MEZA Diagnosis: Essential (prima ry) hypertension One tablet daily Last Documented On 3 8:34AM By Nataliya Plaza SLIP COVER MAKER-C ; [facility] Aspirin Adult Low Dose 81 MG Oral Tablet Delayed Relea se 08/21/2021 Provider: Diagnosis: Last Documented On 08/21/2021 2:45PM By Anabella RÍOS ; [facility] Medications Administered Includes: [...] Check-Out Time Diagnosis RX ISSUE/REFILL NATALIYA PLAZA SLIP COVER MAKER-C 3 2:03PM 11:59PM Insurance Includes: Active Insurance Policies Plan Name Member ID Group # Subscriber Relationship Effect james Dates 1 - [employer]/ MEDICARE GOLD CHOICE PLAN-A [id number] SIA Ching 2 - [place] MEDICARE SECOND [id number] SIA Ching Clinical Notes Includes: Clinical Notes from this encounter No Clinical Notes Recorded
--- NOTE | 2024-12-10 14:51 | ED.URI ---
HPI - URI/Sore Throat General Chief Complaint: Upper Respiratory Infection Stated Complaint: sob/cough Time Seen by Provider: 12/10/24 14:43 Source: patient Mode of arrival: ambulatory Limitations: no limitations History of Present Illness HPI Narrative: Leia is a 64-year-old female patient presenting to the clinic today with complaints of shortness of breath and productive cough with clear phlegm x5 days. States her symptoms started with some nausea vomiting and diarrhea for that has resolved and she is just having a cough and shortness of breath at this time. Does report some nasal drainage. History of COPD. She is a current smoker. No fever. Denies any chest pain. Related Data Home Medications ?Medication ?Instructions ?Recorded ?Confirmed ?Last Taken ?Type alprazolam 0.25 mg tablet 0.25 mg PO DAILY 01/06/22 01/06/22 Unknown History aspirin 81 mg capsule 81 mg PO DAILY 01/06/22 01/06/22 Unknown History exemestane 25 mg tablet 25 mg PO DAILY 01/06/22 01/06/22 Unknown History hydralazine 25 mg tablet 25 mg PO TID 01/06/22 01/06/22 Unknown History hydrochlorothiazide 25 mg tablet 25 mg PO DAILY 01/06/22 01/06/22 Unknown History lisinopril 5 mg tablet 5 mg PO DAILY 01/06/22 01/06/22 Unknown History metoprolol succinate 50 mg 50 mg PO DAILY 01/06/22 01/06/22 Unknown History tablet,extended release 24 hr paroxetine HCl 20 mg tablet 20 mg PO DAILY 01/06/22 01/06/22 Unknown History albuterol sulfate 90 mcg/actuation inhalation 12/10/24 Unknown History aerosol inhaler carbidopa 25 mg-levodopa 100 mg tablet 12/10/24 Unknown History tablet fluticasone fur. 100 mcg-umeclid inhalation 12/10/24 Unknown History 62.5 mcg-vilant 25 mcg inhalat.powder (Trelegy Ellipta) pregabalin 150 mg capsule mg 12/10/24 Unknown History Allergies Allergy/AdvReac Type Severity Reaction Status Date / Time No Known Allergies Allergy Verified 12/10/24 14:53 Review of Systems Review of Systems: Pertinent positives per HPI. Patient denies any fever, chills, rash, headache, visual changes, dizziness, chest pain, palpitations, nausea, vomiting, diarrhea, constipation, abdominal pain, or any urinary issues. 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 There is no relevant family history pertinent to the patient complaint. Exam Narrative: General: Well-developed, well nourished, in no apparent distress Head: Normocephalic, atraumatic Eyes: Pupils equally round and reactive to light bilaterally, EOM intact, sclera and conjunctive clear, no discharge, lids normal Ears: TMs intact and clear, ear canals clear, no drainage, grossly hearing normal. Nose: Nares patent, clear nasal discharge, no inflammation, no sinus tenderness. Mouth: Oral pharynx without lesions or masses, good dentition, MMM. Postnasal drip Neck: Supple, trachea midline, no enlargement of anterior or posterior cervical nodes, no thyroid masses or goiter palpable. Cardio: Regular rate and rhythm, s1 and s2 normal, no murmur appreciated. Resp: Inspiratory and expiratory wheezing with decreased aeration, no rhonchi, rales, or rubs Course Course Emergency Course: Portions of this record may have been created with voice recognition software. Level of Care: Express Care Visit Vital Signs Vital signs: Vital Signs Temperature 35.5 C L 12/10/24 14:48 Pulse Rate 106 H 12/10/24 14:48 Respiratory Rate 20 12/10/24 14:48 Blood Pressure 130/83 12/10/24 14:48 Pulse Oximetry 94 12/10/24 14:48 Oxygen Delivery Room Air 12/10/24 14:48 Temperature 35.5 C L 12/10/24 14:48 Pulse Rate 106 H 12/10/24 14:48 Respiratory Rate 20 12/10/24 14:48 Blood Pressure 130/83 12/10/24 14:48 Pulse Oximetry 94 12/10/24 14:48 Oxygen Delivery Room Air 12/10/24 14:48 Vital signs reviewed MDM - URI/Sore Throat MDM Narrative Medical decision making narrative: At the time of visit patient is resting comfortably on the exam table. Patient appears to be nontoxic. Diagnostics: Chest X-ray is negative for any acute cardiopulmonary process Medications: DuoNeb hand-held neb treatment given in the clinic today-this improved patient's aeration and helped her cough. States that she is breathing easier Plan: I suspect patient has COPD exacerbation. Prescription for prednisone, albuterol inhaler, and albuterol nebulizer solution was sent to the pharmacy. 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 Recommend contacting her primary care provider or she may pay for 1 out of pocket. Supportive measures were discussed with the patient and they voiced understanding discharge instructions and agrees to treatment plan. Return precautions reviewed Differential Diagnosis Differential diagnosis: Likely upper respiratory infection, otitis media, sinusitis, viral infection, bronchitis, influenza, pharyngitis and other (COVID) Discharge Plan Discharge Clinical Impression: Acute exacerbation of chronic obstructive pulmonary disease Patient Disposition: Home Condition: Stable Instructions: Antibiotic Form, COPD (Chronic Obstructive Pulmonary Disease) (ED) Additional Instructions: Take prescription medications only as prescribed-albuterol inhaler, albuterol nebulizer solution, and prednisone Increase fluids and stay well hydrated Tylenol/motrin for pain/fever Flonase and OTC antihistamines as directed Vicks vapor rub to open sinuses Sinus rinses for congestion Cepacol spray, cough drops, throat lozenges, warm tea with honey/lemon, gargle salt water to soothe throat BRAT diet for diarrhea Clear liquids x 24 hours then advance as tolerated for nausea/vomiting Go to the ED if you develop a worsening in your condition- high fever not controlled by Tylenol or Motrin, dehydration, weakness, lethargy, shortness of breath, or chest pain. Follow up with your PCP in 3-5 days if symptoms persist. Patient Language: Vietnamese Prescriptions: New prednisone 20 mg tablet 40 mg PO DAILY 5 Days Qty: 10 0RF albuterol sulfate 90 mcg/actuation HFA aerosol inhaler 2 puff inhalation Q4-6H PRN (Reason: shortness of breath or wheezing) 30 Days Qty: 8.5 0RF albuterol sulfate 2.5 mg /3 mL (0.083 %) solution for nebulization 2.5 mg inhalation Q4H PRN (Reason: shortness of breath or wheezing) 30 Days Qty: 90 0RF No Action metoprolol succinate 50 mg tablet extended release 24 hr 50 mg PO DAILY hydralazine 25 mg tablet 25 mg PO TID alprazolam 0.25 mg tablet 0.25 mg PO DAILY exemestane 25 mg tablet 25 mg PO DAILY paroxetine HCl 20 mg tablet 20 mg PO DAILY lisinopril 5 mg tablet 5 mg PO DAILY hydrochlorothiazide 25 mg tablet 25 mg PO DAILY aspirin 81 mg Capsule 81 mg PO DAILY albuterol sulfate 90 mcg/actuation HFA aerosol inhaler INHALATION carbidopa-levodopa 25-100 mg tablet pregabalin 150 mg capsule Trelegy Ellipta 100-62.5-25 mcg blister with device INHALATION Follow-up/Referrals: UNKNOWN,DOCTOR [Primary Care Provider] - Time of Disposition: 15:19 Quality NIHSS Nursing Documentation ED NIHSS nursing documentation: reviewed/agree
--- OUTSIDE RECORDS SUMMARY | 2024-12-10 14:51 | XMS_ITS | Clinical Summary ---
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 NATALIYA PLAZA STEEL WELDER-C Active Last Documented On 3 2:08PM ; [facility] Myalgia and Myositis 02/21/2022 NATALIYA HOGUE STEEL WELDER-C Active Last Documented On 2 11:38AM ; [facility] Anxiety Disorder Nos 03/25/2021 LINETTE WILLIS MD Active Last Documented On 1 12:23PM ; [facility] Essential Hypertension Malignant 03/25/2021 NAWAF PALAFOX MD Active Last Documented On 1 12:23PM ; [facility] Past Visits Onset Date Resolved Date Provider Condition Status Skin Subcutaneous Tissue Disorders in Diseases Classified Elsewhere 05/12/2023 NATALIYA PLAZA STEEL WELDER-C Active Last Documented On 3 2:08PM ; [facility] Adjustment Disorder with Anx iety and Depressed Mood 10/25/2020 LINETTE PALAFOX MD Active Last Documented On 1 5:14PM ; [facility] Anxiety disorder, unspecified 02/04/2020 BINH PLAZA STEEL WELDER-C Active Last Documented On 0 8:56AM ; [facility] Chronic Obstructive Pulmonar y Disease with Exacerbation 02/04/2020 LINETTE PALAFOX MD Active Last Documented On 1 5:14PM ; [facility] Breast Complaints 02/04/2020 NATALIYA LOZOYA STEEL WELDER-C Active Last Documented On 2 5:47PM ; [facility] Plan of Treatment Follow up in the office as needed. - Last Documented On 11/03/2023 1:35PM ; [facility] Instructions to patient Intervention and counseling on cessation of tobacco use Last Documented On 4 1:04PM ; [facility] Assessments Includes: Assessments from this encounter Findings - [I10 - Essential (primary) hypertension] Malignant essential hypertension - Last Documented On 11/03/2023 1:35PM ; [facility] - [I97.2 - Postmastectomy lymphedema syndrome] Postmastectomy lymphedema syndrome - Last Documented On 11/03/2023 1:35PM ; [facility] - [M79.10 - Myalgia, unspecified site] Myalgia and myositis - Last Documented On 11/03/2023 1:35PM ; [facility] - [F41.9 - Anxiety disorder, unspecified] Anxiety disorder NOS - Last Documented On 11/03/2023 1:35PM ; [facility] Instructions Includes: Instructions from this encounter Instructions to patient Intervention and counseling on cessation of tobacco use Last Documented On 4 1:04PM ; [facility] Medical Equipment - Implanted Devices Includes: Current Devices No Medical Equipment Recorded Medications Includes: Medications discussed during this encounter and other current Medications Discontinued / Stopped on this date NATALIYA PLAZA STEEL WELDER-C on 06/12/2023 traMADol HCl 50 MG Oral Tablet Provider: NATALIYA GIVENSP-C Diagnosis: Myalgia, unspeci fied site Last Documented On 4 1:17PM By Nataliya Plaza STEEL WELDER-C ; [facility] Bactrim DS 800-160 MG Oral Tablet Provider: NATALIYA PALACIO STEEL WELDER-C Diagnosis: Oth disorders of skin, subcu in diseases classd elswhr Last Documented On 11/03/2023 1:00PM By Diogenes RÍOS ; [facility] New / Renewed during this visit NATALIYA MEZA on 11/03/2023 traMADol HCl 50 MG Oral Tablet Provider: NATALIYA MEZA 30 day supply: 30 tablet, 0 refills Diagnosis: Myalgia, unspecified site One tablet at bed time Pharmacy: [address], [address] - Last Documented On 4 12:57PM By Nataliya MEZA ; [facility] Current Medications (continue as prescribed) Albuterol Sulfate HFA 108 (90 Base) MCG/ACT Inhalation Aerosol Solution 01/28/2024 Provider: NATALIYA MEZA Diagnosis: Anxiety disorder , unspecified 2 puff q 4 hours prn Last Documented On 01/28/2024 3:45PM By Diogenes RÍOS ; [facility] traMADol HCl 50 MG Oral Tablet 01/27/2024 Provider: NATALIIA Colunga Diagnosis: Myalgia, unspeci fied site One tablet at bed time Last Documented On 4 1:30PM By Nataliia Bhat PA-C ; [facility] Xanax 0.25 MG Oral Tablet 01/16/2024 Provider: NATALIYA MEZA Diagnosis: Anxiety disorder , unspecified One tablet three times a day Last Documented On 4 12:41PM By Nataliya MEZA ; [facility] Pregabalin 150 MG Oral Capsule 01/16/2024 Provider: NATALIYA MEZA Diagnosis: Myalgia, unspeci fied site once daily Last Documented On 4 12:41PM By Nataliya MEZA ; [facility] Trelegy Ellipta 100-62.5-25 MCG/ACT Inhalation Aerosol Powder Breath Activated 10/13/2023 Provider: NATALIYA MEZA Diagnosis: Chronic obstruct james pulmonary disease w (acute) exacerbation 1 puff daily Last Documented On 4 4:03PM By Nataliya MEZA ; [facility] guaiFENesin ER 600 MG Oral Tablet Extended Release 12 Hour 05/12/2023 Provider: NATALIYA MEZA Diagnosis: Chronic obstruct james pulmonary disease w (acute) exacerbation One tablet twice a day Last Documented On 3 2:08PM By Nataliya MEZA ; [facility] hydroCHLOROthiazide 25 MG Oral Tablet 05/05/2023 Provider: NATALIYA MEZA Diagnosis: Essential (prima ry) hypertension One tablet daily Last Documented On 3 11:14AM By Nataliya MEZA ; [facility] PARoxetine HCl 20 MG Oral Tablet 05/01/2023 Provider: NATALIYA MEZA Diagnosis: Adjustment disor jose guadalupe with mixed anxiety and depressed mood One tablet daily Last Documented On 3 8:34AM By Nataliya MEZA ; [facility] Lisinopril 5 MG Oral Tablet 05/01/2023 Provider: NATALIYA MEZA Diagnosis: Essential (prima ry) hypertension One tablet daily Last Documented On 3 8:34AM By Nataliya MEZA ; [facility] Aspirin Adult Low Dose 81 MG Oral Tablet Delayed Relea se 08/21/2021 Provider: Diagnosis: Last Documented On 08/21/2021 2:45PM By Anabella RÍOS ; [facility] Past Medications on file Trelegy Ellipta 100-62.5-25 MCG/INH Inhalation Aerosol Powder Breath Activated 09/21/2020 - 12/20/2020 Provider: LINETTE PALAFOX MD Diagnosis: Chronic obstruct james pulmonary disease w (acute) exacerbation INHALE 1 PUFF BY MOUTH ONCE DAILY AT BEDTIME Last Documented On 09/21/2020 2:34PM By Miladis RÍOS ; [facility] Medications Administered Includes: Administered [...] 97 Last Documented: On 11/03/2023 1:03PM ; [facility] Results Includes: Results discussed [...] 11/03/2023 Last Documented On 4 1:35PM ; [facility] 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 None 11/03/2023 Last Documented On 4 1:35PM ; [facility] Current smoker 02/21/2022 Last Documented On 4 1:00PM ; [facility] Good exercise habits 07/23/2020 Last Documented On 4 1:00PM ; [facility] No caffeine use 07/23/2020 Last Documented On 4 1:00PM ; [facility] No family problems 07/23/2020 Last Documented On 4 1:00PM ; [facility] No interpersonal problems 07/23/2020 Last Documented On 4 1:00PM ; [facility] No job change 07/23/2020 Last Documented On 4 1:00PM ; [facility] No physical disability 07/23/2020 Last Documented On 4 1:00PM ; [facility] No recent financial changes 07/23/2020 Last Documented On 4 1:00PM ; [facility] No recent legal problems 07/23/2020 Last Documented On 4 1:00PM ; [facility] No work-related circumstances 07/23/2020 Last Documented On 4 1:00PM ; [facility] Not using alcohol 07/23/2020 Last Documented On 4 1:00PM ; [facility] Not using drugs 07/23/2020 Last Documented On 4 1:00PM ; [facility] Smoker smokes 3 cig/day 06/22/2020 Last Documented On 4 1:00PM ; [facility] Cigarette smoking 02/04/2020 Last Documented On 4 1:00PM ; [facility] Current every day smoker 02/04/2020 Last Documented On 4 1:00PM ; [facility] Current smoker for 35 years 02/04/2020 Last Documented On 4 1:00PM ; [facility] Moderate cigarette smoker 02/04/2020 Last Documented On 4 1:00PM ; [facility] Smoking Status Unknown Procedures and Surgical History Includes: Procedures from this encounter Procedures Code Diagnosis Performing Provider Service L ocation Service Date plan of care reviewed and agreed to by the patient Last Documented On 4 1:00PM ; [facility] intervention and counseling on cessation of 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 use 4000F Last Documented On 4 1:04PM ; [facility] use of tobacco assessment performed 1000F Last Documented On 4 1:04PM ; [facility] patient screened for future fall risk 3288F Last Documented On 4 1:00PM ; [facility] review of medications documented 1160F Last Documented On 4 1:00PM ; [facility] counseling about safety issues Last Documented On 4 1:00PM ; [facility] assessment of substance use performed Last Documented On 4 1:00PM ; [facility] encouragement to exercise Last Documented On 4 1:00PM ; [facility] screening for safety concerns Last Documented On 4 1:00PM ; [facility] Clinical summary provided to patient Last Documented On 4 1:00PM ; [facility] Medical History Includes: Medical History addressed during this encounter Description Last Updated Surgery 1979--child ~1994-- c/s Last Documented On 4 1:00PM ; [facility] Family History Includes: Family History addressed during [...] Check-Out Time Diagnosis CHECK UP NATALIYA GIVENSPKeanu [facility]- 11/03/19 24 12:55PM 1:33PM Anxiety Disorder Nos,Myalgia and Myositis,Essenti al Hypertension Malignant,Davon stectomy Lymphedema Syndrome Insurance Includes: Active Insurance Policies Plan Name Member ID Group # Subscriber Relationship Effect james Dates 1 - [employer]/ MEDICARE GOLD CHOICE PLAN-A [id number] SIA VILLASEÑOR Self 2 - MEDICAID OF [place] MEDICARE SECOND [id number] SIA VILLASEÑOR Self Clinical Notes Includes: Clinical Notes from this encounter * Progress note Date Encounter Last Documented by 11/03/2023 CHECK UP Last documented on 11/03/2023; 1:35 PM, NATALIYA MEZA; [facility] Active Problems & Conditions [...] StartCited - Abdominal distension (gaseous) Radiology @ [facility]/CT Scan: Abdominal CT w/o contrast Instructions: [...]
[2024-12-10] MEDS: IPRATROPIUM 0.5 MG/ALBUTEROL SULFATE 2.5 MG AMPUL.NEB 3 ML INHALATION (15:04)
== END 2024-12-10 15:29 | disposition home or self-care (01) ==
PROVIDERS: Emergency Provider Nurse Practitioner Family
DX: J44.1 Chronic obstructive pulmonary disease with (acute) exacerbation (principal); I10 Essential (primary) hypertension; J44.9 Chronic obstructive pulmonary disease, unspecified; Z79.899 Other long term (current) drug therapy; Z85.3 Personal history of malignant neoplasm of breast; Z87.891 Personal history of nicotine dependence
CPT/HCPCS: 71046; 94640; 99213; G0463